=== PATIENT | male | born 1950 | race Caucasian/White ===

== ENCOUNTER → 2018-05-30 07:19 | Outpatient (CLI) | payer MEDICARE, SELFPAY ==
--- NOTE | 2018-05-30 07:28 | CI_ITS ---
Cerebrovascular Exam Indications: Follow-up carotid 433.10. IMPRESSIONS 1. The bilateral vertebral arteries are patent with normal antegrade flow. 2. Study suggests 20-49% stenosis involving the right internal carotid artery and the left internal carotid artery. Carotid duplex study. Complete study and Doppler flow study including spectral analysis, color and marquis scale imaging. Height: Height: 172.7cm. Height: 68in. Weight: Weight: 84.4kg. Weight: 185.6lb. Body mass index: BMI: 28.3kg/m^2. Body surface area: BSA: 2.03m^2. Location: Vascular laboratory. Patient status: Outpatient. Tables: Arterial flow: + +--------+--------+ Location V sys V ed + +--------+--------+ Right CCA - proximal 67.3cm/s 15.1cm/s + +--------+--------+ Right CCA - distal 71.7cm/s 16.3cm/s + +--------+--------+ Right ECA 101cm/s -------- + +--------+--------+ Right ICA - proximal 119cm/s 36.4cm/s + +--------+--------+ Right ICA - mid 92.4cm/s 26.9cm/s + +--------+--------+ Right ICA - distal 96.2cm/s 35.8cm/s + +--------+--------+ Right vertebral 50.9cm/s -------- + +--------+--------+ Left CCA - proximal 84.9cm/s 21.5cm/s + +--------+--------+ Left CCA - distal 56.8cm/s 16.5cm/s + +--------+--------+ Left ECA 87.1cm/s -------- + +--------+--------+ Left ICA - proximal 92.9cm/s 37.7cm/s + +--------+--------+ Left ICA - mid 102cm/s 34.2cm/s + +--------+--------+ Left ICA - distal 133cm/s 42.6cm/s + +--------+--------+ Left vertebral 44.3cm/s -------- + +--------+--------+ Velocity ratios: + + + + + + Right, V sys Right, V ed Left, V sys Left, V ed + + + + + + Max ICA/dist CCA 1.66 2.23 2.34 2.58 + + + + + + (Report amended ) Electronically signed by: Hesham Timmons [id number]
== END ==
PROVIDERS: PCP Family Medicine; Visit Provider Family Medicine
DX: I65.23 Occlusion and stenosis of bilateral carotid arteries (principal)
CPT/HCPCS: 93880

== ENCOUNTER → 2021-02-11 08:31 | Outpatient (CLI) | payer MEDICARE, SELFPAY ==
--- NOTE | 2021-02-11 | CA_ITS ---
APPROVED REPORT Stitch Burnisher: Sharla Huerta CRT Laterality: Bilateral Indications: Plaque on xray Risk Factors Hypertension: Doppler Spectral Velocity Analysis ECA (R) 104.50/ cm/s ECA (L) 94.40/ cm/s dICA (R) 127.20/41.90 cm/s dICA (L) 141.40/31.70 cm/s Rad (R) 111.40/38.60 cm/s Rad (L) 120.50/33.70 cm/s pICA (R) 96.80/31.70 cm/s pICA (L) 125.00/49.40 cm/s dCCA (R) 61.60/12.20 cm/s dCCA (L) 55.50/13.50 cm/s pCCA (R) 64.20/13.50 cm/s pCCA (L) 81.60/16.50 cm/s Vert (R) 48.80/ cm/s Vert (L) 37.00/ cm/s ICA/CCA 2.10 ICA/CCA 2.60 Findings Duplex evaluation demonstrates stenosis of the right proximal internal carotid artery in the range of 20-49%. Duplex evaluation demonstrates stenosis of the left proximal internal carotid artery in the range of 50-69%. Duplex evaluation demonstrates antegrade flow of the bilateral Vertebral Arteries. Conclusion Duplex evaluation demonstrates stenosis of the right proximal internal carotid artery in the range of 20-49%. Duplex evaluation demonstrates stenosis of the left proximal internal carotid artery in the range of 50-69%. Duplex evaluation demonstrates antegrade flow of the bilateral Vertebral Arteries. Electronically signed by : Hesham Timmons MD 02/11/2021 18:17:21
== END ==
PROVIDERS: PCP Family Medicine; Visit Provider Family Medicine
DX: R93.89 Abnormal findings on diagnostic imaging of other specified body structures (principal); I65.23 Occlusion and stenosis of bilateral carotid arteries
CPT/HCPCS: 93880

== ENCOUNTER → 2021-06-23 10:57 | Outpatient (CLI) | payer MEDICARE, SELFPAY ==
--- NOTE | 2021-06-23 11:01 | XR_ITS ---
FINAL REPORT CLINICAL HISTORY: SCIATICA OF THE LT SIDE FINDINGS: LUMBAR SPINE SERIES Five views demonstrate no fracture or subluxation. Moderate degenerative change with osteophytes are present. There is vacuum phenomenon at L5-S1. IMPRESSION: Degenerative changes without acute bony abnormality. Reviewed, Interpreted and Dictated by Rickey Villa III, MD Transcribed by Cara Horvath Authenticated by Rickey Villa III, MD on 06/23/2021 01:42:16 PM [facility]
== END ==
PROVIDERS: PCP Family Medicine; Visit Provider Family Medicine
DX: M54.32 Sciatica, left side (principal)
CPT/HCPCS: 72110

== ENCOUNTER → 2021-08-05 08:07 | Outpatient (CLI) | payer MEDICARE, SELFPAY ==
--- NOTE | 2021-08-05 08:13 | MR_ITS ---
FINAL REPORT CLINICAL HISTORY: DDD FINDINGS: Multiplanar MR imaging of the lumbar spine was performed without and with contrast. On the sagittal T2-weighted images, disc degeneration is seen at multiple levels. There are mild endplate changes at several levels. The vertebral alignment is normal. There is no evidence of fracture. The conus is seen at approximately the L1 level and has an unremarkable appearance. L1-2: There is an annular bulge present. There is facet arthropathy. There is mild right neuroforaminal narrowing. There is no significant canal stenosis. L2-3: There is an annular bulge present. There is facet arthropathy. There is a left foraminal disc protrusion. There is moderate left neuroforaminal narrowing. There is no significant canal stenosis. L3-4: There is an annular bulge present. There is facet arthropathy. There are vertebral osteophytes. There is mild right and moderate left neuroforaminal narrowing. There is moderate central canal stenosis with an AP diameter of thecal sac of 5 mm. L4-5: There is an annular bulge present. There is facet arthropathy. There are vertebral osteophytes. There is moderate bilateral neuroforaminal narrowing. There is moderate central canal stenosis with an AP diameter of the thecal sac of 6 mm. L5-S1: There are postoperative changes on the left. There is an annular bulge present. There is facet arthropathy. There are vertebral osteophytes. There is a central/left paracentral superiorly extruded disc. There is left lateral recess stenosis and left S1 nerve root compromise. There is severe central canal stenosis with an AP diameter of the thecal sac of 4 mm No abnormal contrast enhancement is identified. There is spurring at the sacroiliac joints bilaterally. IMPRESSION: Multilevel mild degenerative disc disease with areas of central canal stenosis and neuroforaminal narrowing Central/left paracentral superiorly extruded disc at L5-S1 causing left lateral recess stenosis and left S1 nerve root compromise. Reviewed, Interpreted and Dictated by Rickey Villa III, MD Transcribed by Lian Tomas Authenticated by Rickey Villa III, MD on 08/05/2021 12:24:04 PM [facility]
[2021-08-05 08:55] LABS: Blood Urea Nitrogen 34 mg/dl (9-20); Estimated Glomerular Filt Rate 95 ml/min (>60); GFR (African American) 115 ML/MIN (>60)
== END ==
PROVIDERS: PCP Family Medicine; Visit Provider Family Medicine
DX: M51.36 Other intervertebral disc degeneration, lumbar region (principal)
CPT/HCPCS: 36415; 72158; 82565; 84520; A9576

== ENCOUNTER → 2021-12-19 09:17 | Outpatient (CLI) | payer MEDICARE, SELFPAY ==
[2021-12-18 19:01] LABS: Alanine Aminotransferase 21 U/L (12-78); Albumin/Globulin Ratio 1.4 (1.1-1.8); Alkaline Phosphatase 91 U/L (38-126); Anion Gap 8.5 mEq/L (5-15); Aspartate Amino Transferase 25 U/L (17-59); Bilirubin,Total 0.1 mg/dl (0.2-1.3); Blood Urea Nitrogen 18 mg/dl (9-20); Calcium 9.4 mg/dl (8.4-10.2); Carbon Dioxide 31 mmol/L (22.0-30.0); Chloride 103 mmol/L (98-107); Estimated Glomerular Filt Rate 95 ml/min (>60); GFR (African American) 115 ML/MIN (>60); Globulin 2.9 g/dL (1.3-3.2); Glucose 127 mg/dl (74-100); Potassium 4.5 mmoL/L (3.5-5.1); Sodium 138 mmol/L (136-145); Total Protein,Serum 6.9 g/dl (6.3-8.2)
== END ==
PROVIDERS: PCP Family Medicine; Visit Provider Family Medicine
DX: I10 Essential (primary) hypertension (principal)
CPT/HCPCS: 80053

== ENCOUNTER → 2022-06-25 11:15 | Outpatient (CLI) | payer MEDICARE, SELFPAY ==
[2022-06-25 19:07] LABS: Alanine Aminotransferase 24 U/L (12-78); Albumin Level 4.2 g/dl (3.5-5.0); Albumin/Globulin Ratio 1.6 (1.1-1.8); Alkaline Phosphatase 70 U/L (38-126); Anion Gap 6.6 mEq/L (5-15); Aspartate Amino Transferase 27 U/L (17-59); Bilirubin,Total 0.4 mg/dl (0.2-1.3); Blood Urea Nitrogen 19 mg/dl (9-20); Calcium 8.9 mg/dl (8.4-10.2); Carbon Dioxide 34 mmol/L (22.0-30.0); Chloride 102 mmol/L (98-107); Estimated Glomerular Filt Rate 111 ml/min (>60); GFR (African American) 134 ML/MIN (>60); Globulin 2.7 g/dL (1.3-3.2); Glucose 165 mg/dl (74-100); Potassium 4.6 mmoL/L (3.5-5.1); Sodium 138 mmol/L (136-145); Total Protein,Serum 6.9 g/dl (6.3-8.2)
== END ==
PROVIDERS: PCP Family Medicine; Visit Provider Family Medicine
DX: C61 Malignant neoplasm of prostate (principal); I10 Essential (primary) hypertension
CPT/HCPCS: 80053

== ENCOUNTER 2022-07-05 11:38 | Emergency (ER) | payer MEDICARE, SELFPAY ==
[2022-07-05] VITALS (12 sets, daily range): BP systolic 140–188; BP diastolic 75–100; PULSE 82–94; RESP 16–18; TEMP 36.4; O2SAT 95–98; BMI 28.1
[2022-07-05 12:14] LABS: Basophils % 0.5 % (0.1-2.0); Eosinophils % 0.6 % (0.1-12.0); Hematocrit 43.9 % (42.0-52.0); Hemoglobin 14.3 g/dL (14.1-18.0); Lymphocytes # 0.5 K/mm3 (0.7-4.5); Lymphocytes % 6.3 % (10-50); Mean Corpuscular HGB Conc 32.6 g/dL (31.8-35.4); Mean Corpuscular Hemoglobin 29.4 pg (27.0-31.2); Mean Platelet Volume 7.5 fl (7.4-10.4); Monocytes # 0.6 K/mm3 (0.1-1.0); Monocytes % 8.2 % (1.7-9.3); Neutrophils % 84.4 % (37.0-80.0); Platelet Count 338 K/mm3 (142-424); Red Blood Count 4.88 M/mm3 (4.60-6.20); Red Cell Distribution Width 12.9 % (11.5-17.5); White Blood Count 7.1 K/mm3 (4.8-10.8)
--- NOTE | 2022-07-05 12:17 | CT_ITS ---
FINAL REPORT TECHNIQUE: Thin section axial images were obtained through the abdomen after intravenous contrast. Reconstruction images were obtained from the axial data. Exam was performed using dose reduction techniques. CLINICAL HISTORY: lower abdominal pain, h/o diverticulosis FINDINGS: The lung bases are clear. The liver is homogeneous. The gallbladder is present. The spleen, adrenal glands, and pancreas are unremarkable. There is no hydronephrosis or solid renal mass. There are fluid-filled mildly dilated small bowel loops. The distal and terminal ileum are thickened. There is abnormal soft tissue in the region of the ileocecal valve and cecum. There is no evidence of lymphadenopathy. Ascites is noted. The prostate is either very small or has been resected. The appendix is normal. There is diverticulosis without evidence of diverticulitis. There is a mildly enlarged right extra iliac lymph node measuring 13 mm. There is a small amount of ascites. No acute osseous abnormality is identified. IMPRESSION: Wall thickening of the terminal ileum with abnormal soft tissue at the ileocecal valve and cecum which may be related to enterocolitis however neoplasm is not excluded. Consider colonoscopy. Small bowel dilatation to the level of the terminal ileum, a component of small bowel obstruction is likely. Ascites. Reviewed, Interpreted and Dictated by Cee Reyes MD Transcribed by Cara Horvath Authenticated and [facility]
[2022-07-05 12:18] LABS: Chloride 105 mmol/L (98-107); Potassium 4.3 mmoL/L (3.5-5.1); Sodium 139 mmol/L (136-145)
[2022-07-05 12:21] LABS: Alanine Aminotransferase 21 U/L (12-78); Albumin Level 4.2 g/dl (3.5-5.0); Albumin/Globulin Ratio 1.5 (1.1-1.8); Alkaline Phosphatase 75 U/L (38-126); Anion Gap 8.3 mEq/L (5-15); Aspartate Amino Transferase 23 U/L (17-59); Bilirubin,Total 0.6 mg/dl (0.2-1.3); Blood Urea Nitrogen 17 mg/dl (9-20); Calcium 8.7 mg/dl (8.4-10.2); Carbon Dioxide 30 mmol/L (22.0-30.0); Creatinine Clearance Estimated 79 mL/min (50-200); Estimated Glomerular Filt Rate 95 ml/min (>60); GFR (African American) 115 ML/MIN (>60); Globulin 2.8 g/dL (1.3-3.2); Glucose 217 mg/dl (74-100); Lipase 42 U/L (23-300)
[2022-07-05 12:27] LABS: Lactic Acid 1.3 mmol/L (0.7-2.1)
--- NOTE | 2022-07-05 12:45 | HMH.EDGENADL ---
Discharge Plan Disposition Patient Disposition: Xfer Short-Term Hosp Condition: Good Prescriptions Prescriptions: No Action aspirin 81 mg tablet,delayed release (DR/EC) 81 mg PO DAILY metoprolol succinate 25 mg tablet extended release 24 hr 25 mg PO DAILY metformin 500 mg tablet extended release 24 hr 500 mg PO DAILY rosuvastatin 5 mg tablet 5 mg PO DAILY coenzyme Q10 30 mg tablet,chewable 30 mg PO DAILY losartan-hydrochlorothiazide 100-12.5 mg tablet 1 tab PO DAILY Referrals Follow up/Referrals: Rashad Collins MD [Primary Care Provider] - See instructions Clinical Impressions Clinical Impression: SBO (small bowel obstruction), Colonic mass Instructions Patient Instructions: DI for Acute Abdominal Pain Discharge ED Provider: Jasmyne Mcclain General Adult HPI General Chief complaint: Abdominal Pain Stated complaint: Abd pain Time Seen by Provider: 07/05/22 11:52 Mode of Arrival: Ambulatory Source of Information: Patient Limitations: No Limitations Description of Symptoms (Recalled from ER Triage Doc. by RN): Pt c/o lower abd pain x1 week. Pt denies n/v/d, fever or urinary symptoms. Pt reports has been told has diverticulosis when he has had a scope. History of Present Illness HPI narrative: This patient is a 72-year-old male with a history of prostate cancer and diverticulosis presenting to the emergency department for evaluation of lower abdominal pain. He states that it initially started 1 week ago, but it seemed to improve. It got acutely worse last night. He describes it as lower abdominal pain, intermittent, and sharp whenever it comes on. Nothing seems to bring it on, but deep breathing seems to improve it. He denies any fevers, chills, nausea, vomiting, changes in bowel movement such as diarrhea, constipation, melena, or hematochezia. No other symptoms noted at this time. Related Data Home Medications Medication Instructions Recorded Confirmed aspirin 81 mg tablet,delayed 81 mg PO DAILY HEART HEALTH 12/18/21 07/05/22 release coenzyme Q10 30 mg chewable tablet 30 mg PO DAILY Supplement 07/05/22 07/05/22 losartan 100 1 tab PO DAILY Hypertension 07/05/22 07/05/22 mg-hydrochlorothiazide 12.5 mg tablet metformin 500 mg tablet,extended 500 mg PO DAILY Diabetes 07/05/22 07/05/22 release 24 hr metoprolol succinate 25 mg 25 mg PO DAILY Hypertension 07/05/22 07/05/22 tablet,extended release 24 hr rosuvastatin 5 mg tablet 5 mg PO DAILY Cholesterol 07/05/22 07/05/22 Allergies Allergy/AdvReac Type Severity Reaction Status Date / Time No Known Allergies Allergy Verified 06/25/22 10:12 [facility] Disclaimer: The information contained in this section may have been updated after the patient was seen, as this information can be updated by other users. Medical History Diabetes Diabetes mellitus Hyperlipemia Hypertension Prostate cancer Prostate cancer Surgical History History of back surgery History of knee surgery History of prostatectomy Family History Other Cancer Diabetes Social History Smoking Status: Never smoker alcohol intake: never current occupational status: retired Travel in the last 8 weeks: None ROS Obtained: Yes All systems reviewed & no additional complaints except as documented 14 point review of systems obtained and negative except as mentioned in HPI. Physical Exam General General appearance: alert and in no apparent distress Head Head exam: atraumatic and normocephalic Eye Eye exam: Present normal appearance, PERRL and EOMI ENT ENT exam: Present normal exam, normal oropharynx and mucous membranes moist Neck Neck exam: Present normal inspection and full ROM Chest Chest inspection:
[2022-07-05 13:17] LABS: Microscopic, Urine URINE MICROSCOPIC (MICROSCOPIC)
[2022-07-05 13:40] LABS: Appearance,Urine CLEAR (Clear); Bilirubin,Urine Negative (Negative); Blood, Urine Negative (Negative); Color,Urine YELLOW (Yellow); Glucose,Urine (UA) 3+ (Negative); Ketones,Urine TRACE (Negative); Leukocyte Esterase,Urine Negative (Negative); Nitrate,Urine Negative (Negative); Protein,Urine Negative (Negative); Specific Gravity, Urine 1.015 (1.005-1.030); Urobilinogen,Urine 0.2 EU/dl (0.2)
[2022-07-05 13:53] LABS: Bacteria,Urine Trace /lpf; Squamous Epithelial Cell,Urine Occasional #/hpf (0-5)
--- NOTE | 2022-07-05 14:04 | PC.NURSE ---
checked on pt at this time, pt sitting up in bed, states no needs at this time
--- NOTE | 2022-07-05 14:14 | PC.NURSE ---
Dr. Owusu pagemariama
--- NOTE | 2022-07-05 14:16 | PC.NURSE ---
OR staff called for dr. white r/t he is in surgery, gave pt information to her r/t reason for surgical consult. Waiting crew person back
--- NOTE | 2022-07-05 15:00 | PC.NURSE ---
CHECKED ON PT HE IS GOOD CALL LIGHT AT BS
--- NOTE | 2022-07-05 15:00 | PC.NURSE ---
[facility] NEL[facility] speaking with dr. white
--- NOTE | 2022-07-05 15:03 | PC.NURSE ---
requested that radiology power share pt images with [facility]
--- NOTE | 2022-07-05 15:03 | PC.NURSE ---
ER at discussing pt test results and POC
--- NOTE | 2022-07-05 15:06 | PC.NURSE ---
CALLED [facility] FOR GENERAL SURGERY CONSULT, AWAITING CALL BACK
--- NOTE | 2022-07-05 15:10 | PC.NURSE ---
CALL [facility] FOR PT CONSULT, STATED THEY HAD NO BEDS AVAILABLE AT THIS TIME PUTTING PT ON WAIT LIST AND THEN THEY WOULD PAGE OUT FOR A DR TO CONSULT ONCE THEY HAD BED ASSIGNMENT
--- NOTE | 2022-07-05 15:13 | PC.NURSE ---
Addendum entered by Valarie Prado, ROSANA 07/05/22 15:24: pt on waiting list for inpatient bed assignment Original Note: [facility] speaking with surgery at
--- NOTE | 2022-07-05 15:24 | PC.NURSE ---
CALLING TO SPEAK TO [facility] ABOUT POSSIBLE ADMISSION UNTIL BED OPENS UP AT OR [facility]
--- NOTE | 2022-07-05 15:25 | PC.NURSE ---
[facility] SPEAKING WITH DR FERRIS AT THIS TIME
--- NOTE | 2022-07-05 15:30 | PC.NURSE ---
[facility] spoke with Dr. Collins badger distiller operator paging dr. white
--- NOTE | 2022-07-05 15:32 | PC.NURSE ---
CHECKED ON PT HE STATES HIS FINE AT THIS TIME, AT BEDSIDE CALL LIGHT AT BEDSIDE
--- NOTE | 2022-07-05 15:34 | HMH.PHAINT1 ---
Pharmacy Intervention Comments: MEDICATION RECONCILIATION COMPLETED ON PATIENT USING EXTERNAL FILL HISTORY FROM PHARMACY AND LIST FROM [facility]. -LAUREN ERAZOD
--- NOTE | 2022-07-05 15:50 | PC.NURSE ---
CALL [facility] TO POSSIBLY TRANSFER PT AWAITING CALL BACK TO SEE IF GENERAL SURGERY WILL ACCEPT PT
--- NOTE | 2022-07-05 15:59 | PC.NURSE ---
CALLED [facility] FOR POSSIBLE TRANSFER AWAITNG CALL BACK TO SEE IF GENERAL SURGERY WILL ACCEPTS PT
--- NOTE | 2022-07-05 16:14 | PC.NURSE ---
checked on pt at this time, pt sitting up in bed, family in room with pt. Pt states no needs at this time.
--- NOTE | 2022-07-05 16:19 | PC.NURSE ---
[facility] speaking with Dr. Saldaña with surgery at [place]
--- NOTE | 2022-07-05 16:25 | PC.NURSE ---
Dr. Saldaña at [facility] stated to ER to speak with the hospitalist. Transfer center is supposed to be calling back when the hospitalist is available.
[2022-07-05 16:30] LABS: Coronavirus 19, PCR Not Detected (NotDetected); Influenza A, PCR Not Detected (NotDetected); Influenza B, PCR Not Detected (NotDetected)
--- NOTE | 2022-07-05 17:12 | PC.NURSE ---
bed placement staff at [facility] called back states they are unable to list pt on a waiting list r/t he is a possible surgical candidate. Notified [facility]
--- NOTE | 2022-07-05 17:20 | PC.NURSE ---
facesheet faxed to [facility]; [phone]
--- NOTE | 2022-07-05 17:22 | PC.NURSE ---
[facility] called with a bed assignment at [facility] on 3[facility], accepted by dr. medina updated pt on POC.
--- NOTE | 2022-07-05 17:33 | PC.NURSE ---
report called to carmen francis at [facility] at this time.
--- NOTE | 2022-07-05 17:58 | PC.NURSE ---
Pt resting on ED stretcher, call light within reach. Pt is requesting his pain medication at 1800. ROSANA Sheppard has been informed
--- NOTE | 2022-07-05 18:01 | PC.NURSE ---
EMS reports on their way to transport pt
--- NOTE | 2022-07-05 18:16 | PC.NURSE ---
report given to [facility] at this time.
== END 2022-07-05 18:30 | disposition short-term general hospital (02) ==
PROVIDERS: Emergency Provider Emergency Medicine; PCP Family Medicine
DX: K56.609 Unspecified intestinal obstruction, unspecified as to partial versus complete obstruction (principal); K63.89 Other specified diseases of intestine; K57.90 Diverticulosis of intestine, part unspecified, without perforation or abscess without bleeding; Z85.038 Personal history of other malignant neoplasm of large intestine; E11.9 Type 2 diabetes mellitus without complications; E78.5 Hyperlipidemia, unspecified; I10 Essential (primary) hypertension; Z85.46 Personal history of malignant neoplasm of prostate; Z83.3 Family history of diabetes mellitus; Z80.9 Family history of malignant neoplasm, unspecified; Z20.822 Contact with and (suspected) exposure to COVID-19
CPT/HCPCS: 74177; 80053; 81001; 83605; 83690; 85025; 96361; 96374; 96375; 96376; 99285; C9803; J2405; Q9967; U0003; U0005

== ENCOUNTER → 2023-01-11 10:41 | Outpatient (CLI) | payer MEDICARE, SELFPAY ==
[2023-01-11 18:36] LABS: Chloride 105 mmol/L (98-107); Potassium 4.5 mmoL/L (3.5-5.1); Sodium 142 mmol/L (136-145)
[2023-01-11 18:38] LABS: Alanine Aminotransferase 20 U/L (12-78); Blood Urea Nitrogen 18 mg/dl (9-20); Estimated Glomerular Filt Rate 132 ml/min (>60); GFR (African American) 160 ML/MIN (>60)
[2023-01-11 18:39] LABS: Albumin/Globulin Ratio 1.5 (1.1-1.8); Alkaline Phosphatase 94 U/L (38-126); Anion Gap 12.5 mEq/L (5-15); Aspartate Amino Transferase 27 U/L (17-59); Bilirubin,Total 0.3 mg/dl (0.2-1.3); Calcium 9.1 mg/dl (8.4-10.2); Carbon Dioxide 29 mmol/L (22.0-30.0); Globulin 2.6 g/dL (1.3-3.2); Glucose 143 mg/dl (74-100); Total Protein,Serum 6.6 g/dl (6.3-8.2)
[2023-01-11 18:41] LABS: Basophils % 0.6 % (0.1-2.0); Eosinophils # 0.1 K/mm3 (0.0-0.4); Eosinophils % 2.4 % (0.1-12.0); Hematocrit 44.6 % (42.0-52.0); Hemoglobin 14.1 g/dL (14.1-18.0); Lymphocytes % 25.3 % (10-50); Mean Corpuscular HGB Conc 31.7 g/dL (31.8-35.4); Mean Corpuscular Volume 100.7 fl (80-94); Mean Platelet Volume 9.4 fl (7.4-10.4); Monocytes # 0.4 K/mm3 (0.1-1.0); Monocytes % 10.4 % (1.7-9.3); Neutrophils # 2.5 K/mm3 (1.8-7.8); Neutrophils % 61.3 % (37.0-80.0); Platelet Count 269 K/mm3 (142-424); Red Blood Count 4.42 M/mm3 (4.60-6.20); Red Cell Distribution Width 14.8 % (11.5-17.5)
== END ==
PROVIDERS: PCP Family Medicine; Visit Provider Family Medicine
DX: E11.9 Type 2 diabetes mellitus without complications (principal); L98.9 Disorder of the skin and subcutaneous tissue, unspecified; Z79.84 Long term (current) use of oral hypoglycemic drugs
CPT/HCPCS: 80053; 85025

== ENCOUNTER 2023-10-25 17:08 | Outpatient (CLI) | payer MEDICARE, SELFPAY ==
[2023-10-25 20:29] LABS: Anion Gap 12.2 mEq/L (5-15); Blood Urea Nitrogen 16 mg/dl (9-20); Calcium 9.4 mg/dl (8.4-10.2); Carbon Dioxide 31 mmol/L (22.0-30.0); Chloride 101 mmol/L (98-107); Estimated Glomerular Filt Rate 111 ml/min (>60); GFR (African American) 134 ML/MIN (>60); Glucose 126 mg/dl (74-100); Potassium 4.2 mmoL/L (3.5-5.1); Sodium 140 mmol/L (136-145)
[2023-10-25 20:59] LABS: Prostate Specific Ag Screen 4.6 ng/ml (0.0-4.0)
== END 2023-10-25 23:59 | disposition home or self-care (01) ==
LOC: LAB.DROPOF 10-26 17:09
PROVIDERS: PCP Family Medicine; Visit Provider Family Medicine
DX: Z12.5 Encounter for screening for malignant neoplasm of prostate (principal); I10 Essential (primary) hypertension
CPT/HCPCS: 80048; G0103

== ENCOUNTER 2024-07-24 10:14 | Outpatient (CLI) | payer MEDICARE, SELFPAY ==
[2024-07-24 20:19] LABS: Basophils % 0.7 % (0.1-2.0); Eosinophils # 0.1 K/mm3 (0.0-0.4); Eosinophils % 1.2 % (0.1-12.0); Hematocrit 47.1 % (42.0-52.0); Hemoglobin 15.5 g/dL (14.1-18.0); Lymphocytes # 1.3 K/mm3 (0.7-4.5); Lymphocytes % 23.3 % (10-50); Mean Corpuscular HGB Conc 32.9 g/dL (31.8-35.4); Mean Corpuscular Volume 94.2 fl (80-94); Mean Platelet Volume 9.7 fl (7.4-10.4); Monocytes # 0.7 K/mm3 (0.1-1.0); Monocytes % 11.7 % (1.7-9.3); Neutrophils # 3.6 K/mm3 (1.8-7.8); Neutrophils % 62.9 % (37.0-80.0); Platelet Count 289 K/mm3 (142-424); Red Cell Distribution Width 12.1 % (11.5-17.5); White Blood Count 5.7 K/mm3 (4.8-10.8)
[2024-07-24 21:12] LABS: Albumin Level 4.5 g/dl (3.5-5.0); Chloride 99 mmol/L (98-107); Potassium 4.5 mmoL/L (3.5-5.1); Sodium 137 mmol/L (136-145)
[2024-07-24 21:14] LABS: Blood Urea Nitrogen 26 mg/dl (9-20); Estimated Glomerular Filt Rate 94 ml/min (>60); GFR (African American) 114 ML/MIN (>60)
[2024-07-24 21:15] LABS: Alanine Aminotransferase 24 U/L (12-78); Albumin/Globulin Ratio 1.8 (1.1-1.8); Alkaline Phosphatase 72 U/L (38-126); Anion Gap 11.5 mEq/L (5-15); Aspartate Amino Transferase 25 U/L (17-59); Bilirubin,Total 0.2 mg/dl (0.2-1.3); Calcium 9.6 mg/dl (8.4-10.2); Carbon Dioxide 31 mmol/L (22.0-30.0); Globulin 2.5 g/dL (1.3-3.2); Glucose 139 mg/dl (74-100)
== END 2024-07-24 23:59 | disposition home or self-care (01) ==
LOC: LAB.DROPOF 07-25 10:14
PROVIDERS: PCP Family Medicine; Visit Provider Family Medicine
DX: E11.9 Type 2 diabetes mellitus without complications (principal); I10 Essential (primary) hypertension; L30.9 Dermatitis, unspecified
CPT/HCPCS: 80053; 85025

== ENCOUNTER 2024-11-20 11:43 | Outpatient (CLI) | payer MEDICARE, SELFPAY ==
--- OUTSIDE RECORDS SUMMARY | 2024-10-18 08:21 | XMS_ITS | Encounter Summary ---
Author Organization [place] [address] Care Team Providers Care Prize Fighter Name Role Phone Jim Collins MD Primary Care Provider [phone] Diana Metcalf MD Unavailable [phone] Praneeth Fay MD Unavailable [phone] Encounter Details Date Type Department Care Team (Latest Contact Info) Description 10/18/2024 8:21 AM EDT - 10/18/2024 11:59 PM EDT Hospital Encounter [facility] [address] [place], [place] [id number] Discharge Disposition: Home or Self Care Social History Tobacco Use Types Packs/Day Years Used Date Smoking Tobacco: Never Smokeless Tobacco: Never Alcohol Use Standard Drinks/Week Comments Yes 15 (1 standard drink = 0.6 oz pu re alcohol) PHQ-2 Answer Date Recorded PHQ-2 Total Score 0 10/07/2023 Sexually Active Control Partners Comments Yes Female Sex and Gender Information Value Date Recorded Sex Assigned at Not on file Legal Sex Male 12:28 AM EDT Gender Identity Not on file Sexual Orientation Not on file documented as of this encounter Medications at Time of Discharge aspirin 81 mg Oral Tablet, Delayed Release (E.C.) Take 81 mg by mouth daily. clotrimazole-bet amethasone (LOTRISONE) Top Cream Apply topically 2 times daily. empagliflozin (JARDIANCE) 10 mg Oral Tablet Take 10 mg by mouth daily. losartan-hydroch lorothiazide (HYZAAR) 100-12.5 mg Oral Tablet Take 1 Tab by mouth daily. metFORMIN (GLUCOPHAGE) 500 mg Oral Tablet Take 500 mg by mouth daily. metoprolol (LOPRESSOR) 25 mg Oral Tablet Take 25 mg by mouth daily. rosuvastatin (CRESTOR) 5 mg Oral Tablet Take 5 mg by mouth every other day. documented as of this encounter Discharge Disposition Disposition Code Departure Means Destination Home or Self Care documented in this encounter Plan of Treatment Upcoming Encounters Date Type Department Care Team (Late st Contact Info) Description 01/28/2025 9:[address] [facility] [place] [address] Praneeth Fay MD [address] [facility] [place] [address] 01/29/2025 10:00 AM EDT Appointment [facility] [place] [address] 01/29/2025 10:40 AM EDT Appointment [facility] [place] [address] Praneeth Fay MD [address] [facility] [place] [address] documented as of this encounter Visit Diagnoses Not on filedocumented in this encounter Additional Health Concerns Assessment Noted Time A fall risk assessment has been complete d for the patient 03/18/2022 10:38 AM EDT documented as of this encounter Care Teams Prize Fighter Relationship Specialty Start Date End Date Jim Collins MD [address] [facility] [address] [place] [address] PCP - General Psychiatry & Neurology-Neurology 12/21/11 Diana Metcalf MD [address] [facility] [address] [place] [address] Consulting Physician Radiology-Radiation Oncology 04/02/15 Praneeth Fay MD [address] [facility] [address] [place], [place] [id number] Medical Oncologist Internal Medicine-Hematology and Oncology 09/14/22 documented as of this encounter
--- OUTSIDE RECORDS SUMMARY | 2024-10-23 10:00 | XMS_ITS | Encounter Summary ---
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 In the past month, have y ou wished you were or wished you could go to sleep and not wake up? 0 10/23/2024 10:00 AM EDT Teresita Leblanc, OPTICS TEST TECHNICIAN 2. In the past month, have y ou actually had any thoughts of killing yourself? (If no, skip to question 6) 0 10/23/2024 10:00 AM ED T Regina Leblanc VERNON 6. Have you ever done anythi ng, started to do anything, or prepared to do anything to end your life? 0 10/23/2024 10:00 AM EDT Regina Gomez VERNON documented as of this encounter Medications at [...] Info) Description 01/28/2025 9:00 AM EDT Appointment [facility] Center [address] [place], [place] [id number] Praneeth Fay MD [address] [place] [address] [address] [place], [place] [id number] 01/29/2025 10:00 AM EDT Appointment [place] [address] 01/29/2025 10:40 AM EDT Appointment [facility] [place], [place] [id number] Praneeth Fay MD [address] [place] [address] [address] [place], [place] [id number] documented as of this encounter Procedures Procedure Name Priority Date/Time Associated Diagnosis Comments MISCELLANEOUS LAB Routine 10/23/2024 10: 18 AM EDT Prostate cancer (HCC) 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) History of colon cancer documented in this encounter Results * MISCELLANEOUS LAB (10/23/2024 10:18 AM EDT) [facility] COMMENT Diann 10/24/2024 7:04 AM EDT [facility] Blood VASCULAR PORT AND CATHETER / Unknown Port / Unknown 10/23/2024 10:18 AM EDT 10/24/2024 7:03 AM EDT us Praneeth Fay MD HEMATOLOGY ORDERABLES Final Result [facility] [address] [place] [address] documented in this encounter Visit Diagnoses Diagnosis Prostate cancer (HCC)- Primary Malignant neoplasm of prostate 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 Prostate cancer (HCC)Indications:Prostate cancer (HCC) Given 10/23/2024 10:19 AM EDT 500 Units sodium chloride 0.9 % sterile syringe Intravenous, PRN, Starting on 10/23/24 at 1004, Until Tue10/24/24 at 0405, Line Care, For initial access of Venous Access Device., Dx: 1. Prostate cancer (HCC)Indications:Prostate cancer (HCC) Given 10/23/2024 10:19 AM EDT sodium chloride 0.9% syringe Intravenous, PRN, Starting on 10/23/24 at 1004, Until Tue10/24/24 at 0405, Line Care, For Venous Access Device care and maintenance., Dx: 1. Prostate cancer (HCC)Indications:Prostate cancer (HCC) Given 10/23/2024 10:19 AM EDT documented in this encounter Additional Health Concerns Assessment Noted Time A fall risk assessment has been complete d for the patient 03/18/2022 10:38 AM EDT documented as of this encounter Care Teams Insurance Counselor Relationship Specialty [place] [address] [place] [address] [address] [place] [address] PCP - General Psychiatry & Neurology-Neurology 12/21/11 Diana Metcalf MD 20 [facility] [address] [place] [address] Consulting Physician Radiology-Radiation Oncology 04/02/15 Praneeth Fay MD 1 [place] [address] Medical Oncologist Internal Medicine-Hematology and Oncology 09/14/22 documented as of this encounter
--- OUTSIDE RECORDS SUMMARY | 2024-10-23 10:16 | XMS_ITS | Encounter Summary ---
Author Organization [place] [address] Care Team Providers Care Cashier Manager Name Role Phone Jim Collins MD Primary Care Provider [phone] Diana Metcalf MD Unavailable [phone] Praneeth Fay MD Unavailable [phone] Reason for Referral * MRI/CAT Scan (Routine) - Pending Review Specialty Diagnoses / Procedures Referred By Contac t Referred To Contact Radiology Diagnoses Prostate cancer (HCC) Procedures CT CHEST ABDOMEN PELVIS W CONTRAST Praneeth Fay MD [address] [facility] [place] [address] Phone: tel: fax: Referral ID Status Reason Start Date Expiration Date V isits Requested Visits Authorized [id number] Pending Review 10/23/2024 10/23/2025 1 1 Reason for Visit * Reason Comments Follow-up Prostate cancer Encounter Details Date Type Department Care Team (Latest Contact Info) Description 10/23/2024 10:16 AM EDT - 10/23/2024 11:59 PM EDT Hospital Encounter [facility] Medical Oncology [place] [phone] Praneeth Fay MD [address] [facility] [place] [address] Prostate cancer (HCC) (Primary Dx); 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); History of colon cancer; History of chemotherapy Discharge Disposition: Home or Self Care Social History Tobacco Use Types Packs/Day Years Used Date Smoking Tobacco: Never Smokeless Tobacco: Never Tobacco Cessation:Counseling Given: Not Answered Alcohol Use Standard Drinks/Week Comments Yes 15 [...] on file documented as of this encounter Last Filed Vital Signs Vital Sign Reading Time Taken Comments Blood Pressure 184/89 10/23/2024 10:02 AM EDT Pulse 65 10/23/2024 10:02 AM EDT Temperature 36.4 C (97.5 F) 10/23/2024 10:02 AM EDT Respiratory Rate 17 10/23/2024 10:02 AM EDT Oxygen Saturation 98% 10/23/2024 10:02 AM EDT Inhaled Oxygen Concentration - - Weight 81.8 kg (180 lb 4.8 oz) 10/23/2024 10:02 AM EDT Height 172.7 cm (5' 8 ) 10/23/2024 10:02 AM EDT Body Mass Index 27.41 10/23/2024 10:02 AM EDT documented in this encounter Functional Status * Suicide Severity Rating Answer Date of Assessment Author No Risk 10/23/2024 10:00 AM EDT Pascual Leblanc CMA * [place] Suicide Severity Rating Scale (Q shift for moderate and high) Question Answer Date of Assessment Author 1. In the past month, have y ou wished you were or wished you could go to sleep and not wake up? 0 10/23/2024 10:00 AM EDT Teresita Leblanc CMA 2. In the past month, have y ou actually had any thoughts of killing yourself? (If no, skip to question 6) 0 10/23/2024 10:00 AM ED T Regina Leblanc CMA 6. Have you ever done anythi ng, started to do anything, or prepared to do anything to end your life? 0 10/23/2024 10:00 AM EDT Regina Gomez OPEN HEARTH FURNACE OPERATOR documented as of this encounter Medications at [...] 5 mg by mouth every other day. lidocaine-priloc luis (EMLA) Top CreamIndications :Prostate cancer (HCC) Apply one nickel sized glob over port approx 30 minutes before appt. DO NOT RUB IN. Cover with plastic wrap 30 g 2 10/23/2024 documented as of this encounter Ordered Prescriptions Prescription Sig Dispense Quantity Refills Last Filled Start Date End Date lidocaine HCL (GLYDO) 2 % MM Jelly in ApplicatorIndicati ons:Prostate cancer (HCC) Apply 2.5 mL topically once for 1 dose. 1 Applicator 3 10/23/2024 documented in this encounter Discharge Disposition Disposition Code Departure Means Destination Home or Self Care documented in this encounter Progress Notes * Praneeth Fay MD - 10/23/2024 10:20 AM EDT Images from the original note were not included. Patient: Emiliano Mcclain CSN: [id number] Date of : 1950 Age: 74 y.o. Date of Service: 10/23/2024 HEMATOLOGY/ONCOLOGY FOLLOW UP VISIT Primary Lifestyle Director & Oncologist: Praneeth Fay MD DIAGNOSIS & TREATMENT HISTORY: Oncology History Overview Note Colonic adenocarcinoma, stage III ([id number]) Dx 07/2022. P/w abd pain, admitted w/ SBO. iCEA 3.5 (07/07/22). CT imaging w/o distant dz. S/p RIGHT partial colectomy 08/04/22 @ OSH Prostatic adenocarcinoma Dx 2009. iPSA 5.3. s/p radical prostatectomy 10/2009 (pT2c, G7(3+4)). Completed salvage XRT 06/2015given biochemical recurrence. Slowly rising PSA over several yrs and PSMA PET/CT 06/2022 +avid metastatic pelvic LNs. Hereditary cancer genetics: blood will be drawn 07/17/2024, pending No history exists. Cancer Staging No matching staging information was found for the patient. CURRENT TREATMENT: INTERVAL HISTORY: Chief Complaint Patient presents with Follow-up Prostate cancer Emiliano Mcclain is coming today for follow-up with prostate cancer. Feeling good. Denied any nausea/vomiting, diarrhea/constipation, abd pain, or s/s of bleeding. Neuropathy stable. REVIEW OF SYSTEMS: Review of Systems Constitutional: Positive for fatigue. Negative for chills and fever. Respiratory: Negative for cough and shortness of breath. Cardiovascular: Negative for chest pain. Gastrointestinal: Negative for abdominal pain, diarrhea, nausea and vomiting. Musculoskeletal: Positive for arthralgias and myalgias. Neurological: Positive for numbness. MEDICATIONS: Medications and allergies reviewed PHYSICAL EXAM: Vitals: 10/23/24 1002 BP: (!) 184/89 Pulse: 65 Resp: 17 Temp: 97.5 ??F (36.4 ??C) SpO2: 98% Wt Readings from Last 2 Encounters: 10/23/24 180 lb 4.8 oz (81.8 kg) 07/17/24 178 lb 12.8 oz (81.1 kg) ECO Physical Exam Constitutional: Appearance: He is not ill-appearing. Cardiovascular: Rate and Rhythm: Normal rate. Pulmonary: Effort: Pulmonary effort is normal. Abdominal: General: There is no distension. Musculoskeletal: General: No swelling. Neurological: General: No focal deficit present. Mental Status: He is alert and oriented to person, place, and time. MEDICAL DATA REVIEW: Laboratories, Images and Pathology results reviewed ASSESSMENT & PLAN Emiliano Mcclain was seen today for follow-up. Diagnoses and all orders for this visit: Prostate cancer (HCC) - CT CHEST ABDOMEN PELVIS W CONTRAST; Future - lidocaine HCL (GLYDO) 2 % MM Jelly in Applicator; Apply 2.5 mL topically once for 1 dose. 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 P/w abd pain, admitted w/ SBO. iCEA 3.5 (07/07/22). CT imaging w/o distant dz. S/p RIGHT partial colectomy 08/04/22 @ OSH ([facility]) which confirmed invasive moderately diff adenocarcinoma w/ invasion into pericolonic fat (pT3) and 7/12 LNs positive for metastatic ca (pN2b). Two tumor deposits identified. Surgical margins negative. MSI-intact. -- completed adjuvant CAPOX x 3 months (4 cycles) 10/2022. -- germline testing completed (07/27/24), negative -- completed colonoscopy (03/15/24) with no evidence of recurrence. -- CT imaging (07/16/24) w/o evidence to suggest recurrent, metastatic dz. -- no clinical changes since last visit. CEA remains WNL. Last c-tumor DNA was negative (06/2024). Labs reviewed, pending CEA and c-tumor DNA. Will continue to monitor, RTC in 3 months w/ H&P, labs, imaging (CT CAP ordered today). Prostatic adenocarcinoma Dx 2009. iPSA 5.3. s/p radical prostatectomy 10/2009 (pT2c, G7(3+4)). Completed salvage XRT 06/2015given biochemical recurrence. Slowly rising PSA over several yrs and PSMA PET/CT 06/2022 +avid metastatic pelvic LNs. -- no clinical changes, symptoms. PSA continues to slowly rise, up to 6.52 ng/mL. Wants to continueto observe/monitor for now, will reassess flor[place]ma dz on upcoming CT. -- continue follow-up with Rad/Onc (Dr. Metcalf) HTN Elevated today, no associated symptoms. On BB, losartan/HCTZ. Continue to monitor. Chemotherapy induced neuropathy G2, stable. Will continue to monitor IV access PAC placed via IR 09/07/22 Advance Directives: Advance Directives and Living Will: Not Received Power of Half Sole Fitter: Not Received ADVANCE DIRECTIVE: Not Received Code Status: Not on file Dispo: Return in about 3 months (around 01/23/2025) for MD ANN, SCAN RESULT OV, LAB APT. Thank you for the opportunity to assist in the care of this patient, please feel free to contact meif I can be of any assistance. I saw and evaluated the patient. The total time I spent on the date of the visit was 38 minutes. This includes gbny-sm-cugs time with the patient and/or patient???s family, preparing, completing documentation, and coordinating care. Praneeth Fya MD Hematology and Medical Oncology [facility] documented in this encounter Plan of Treatment Upcoming Encounters Date Type Department Care Team (Late st Contact Info) Description 01/28/2025 9:00 AM EDT Appointment [facility] [place] [address] Praneeth Fay MD [address] [place] [address] [place] [address] 01/29/2025 10:00 AM EDT Appointment [facility] [place] [address] 01/29/2025 10:40 AM EDT Appointment [facility] [place] [address] Praneeth Fay MD [address] [place] [address] [place] [address] Scheduled Orders Name Type Priority Associated Diagnoses Orde r Schedule CT CHEST ABDOMEN PELVIS W CONTRAST Imaging Routine Prostate cancer (HCC) 1 Occurrences starting 10/23/2024 until 10/23/2025 documented as of this encounter Visit Diagnoses Diagnosis Prostate cancer (HCC)- Primary Malignant neoplasm of prostate 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 Reorder 10/23/2024 documented as of this encounter Historical Medications * This list may reflect changes made after this encounter. lidocaine HCL (GLYDO) 2 % MM Jelly in Applicator Apply 2.5 mL topically once. 5 added in this encounter Additional Health Concerns Assessment Noted Time A fall risk assessment has been complete d for the patient 03/18/2022 10:38 AM EDT documented as of this encounter Care Teams Cashier Manager Relationship Specialty Start Date End Date Jim Collins MD [address] [facility] [address] [place] [id number] PCP - General Psychiatry & Neurology-Neurology 12/21/11 Diana Metcalf MD [address] [facility] [address] [place] [address] Consulting Physician Radiology-Radiation Oncology 04/02/15 Praneeth Fay MD [address] [facility] [place] [address] Medical Oncologist Internal Medicine-Hematology and Oncology 09/14/22 documented as of this encounter
[2024-11-20 19:04] LABS: Alanine Aminotransferase 20 U/L (12-78); Albumin Level 4.6 g/dl (3.5-5.0); Albumin/Globulin Ratio 1.6 (1.1-1.8); Alkaline Phosphatase 77 U/L (38-126); Anion Gap 12.3 mEq/L (5-15); Aspartate Amino Transferase 25 U/L (17-59); Bilirubin,Total 0.8 mg/dl (0.2-1.3); Blood Urea Nitrogen 18 mg/dl (9-20); Calcium 8.7 mg/dl (8.4-10.2); Carbon Dioxide 30 mmol/L (22.0-30.0); Chloride 98 mmol/L (98-107); Creatinine,Serum 0.70 mg/dl (0.66-1.25); Estimated Glomerular Filt Rate 110 ml/min (>60); GFR (African American) 133 ML/MIN (>60); Globulin 2.8 g/dL (1.3-3.2); Glucose 113 mg/dl (74-100); Potassium 4.3 mmoL/L (3.5-5.1); Sodium 136 mmol/L (136-145); Total Protein,Serum 7.4 g/dl (6.3-8.2)
--- OUTSIDE RECORDS SUMMARY | 2024-11-22 11:45 | XMS_ITS | Continuity of Care Document ---
Author Organization [facility] Address 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); History of colon cancer Discharge Disposition: Home or Self Care 10/23/2024 10:16 AM EDT - 10/23/2024 11:59 PM EDT Hospital Encounter [facility] [place], [place] [id number] Praneeth Fay MD Prostate cancer (HCC) (Primary Dx); 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); History of colon cancer; History of chemotherapy Discharge Disposition: Home or Self Care 10/18/2024 Orders Only [facility] [address] [place] [address] [facility] Prostate cancer (HCC); 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); History of colon cancer 10/18/2024 8:21 AM EDT - 10/18/2024 11:59 PM EDT Hospital Encounter [facility] [address] [address] Discharge Disposition: Home or Self Care 10/16/2024 Telephone [facility] [place] [address] Praneeth Fay MD Lab Orders (Needed labs for 10/23 follow up) 10/16/2024 Telephone [facility] [place] [address] Praneeth Fay MD Information Only (Confirming appointment ) 07/31/2024 Telephone [facility] [address] [place] [id number] Shyam Mckeon CGC Results 07/30/2024 Telephone [facility] [address] [place] [phone] Shyam Mckeon CGC Results 07/30/2024 Telephone [facility] [address] [place] [address] Shyam Mckeon CGC Results 07/27/2024 Orders Only [facility] [address] [place] [id number] Provider, Historical 07/18/2024 Telephone [facility] [place] [address] Praneeth Fay MD Schedule Appointment 07/18/2024 Telephone [facility] [place] [address] Praneeth Fay MD Results 07/17/2024 Orders Only [facility] [address] [place] [address] Shyam Mckeon, [facility] 07/17/2024 9:46 AM EST - 07/17/2024 10:19 AM EST Hospital Encounter [place] [address] Prostate cancer (HCC) (Primary Dx); Encounter for genetic screening; 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); History of colon cancer Discharge Disposition: Home or Self Care 07/17/2024 10:20 AM EST - 07/17/2024 11:59 PM EST Hospital Encounter [facility] [place] [address] Praneeth Fay MD Prostate cancer (HCC) (Primary Dx); 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); History of colon cancer; History of chemotherapy Discharge Disposition: Home or Self Care 07/16/2024 7:29 AM EST - 07/16/2024 11:59 PM EST [place] [address] Praneeth Fay MD Prostate cancer (HCC); History of colon cancer Discharge Disposition: Home or Self Care 07/13/2024 Orders Only [facility] [place] [address] Praneeth Fay MD 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) (Primary Dx); History of colon cancer 04/17/2024 10:00 AM EST - 04/17/2024 11:59 PM EST Hospital Encounter [facility] [address] [place], [place] [phone] Shyam Mckeon CGC Encounter for genetic screening (Primary Dx); Prostate cancer (HCC) Discharge Disposition: Home or Self Care 04/05/2024 Telephone [facility] [address] [place] [phone] Idalia Stock, Clerical Staff Schedule Appointment (Cancer) 03/29/2024 Telephone [facility] [address] [place] [address] Idalia Stock, Clerical Staff Schedule Appointment (Cancer) 03/29/2024 7:42 AM EST - 03/29/2024 11:59 PM EST Hospital Encounter [place] [address] Vanesa Salas APRN Prostate cancer (HCC) (Primary Dx) Discharge Disposition: Home or Self Care 03/27/2024 11:15 AM EST - 03/27/2024 11:35 AM EST Hospital Encounter [place] [address] Prostate cancer (HCC); History of colon cancer Discharge Disposition: Home or Self Care 03/27/2024 11:36 AM EST - 03/27/2024 11:59 PM EST Hospital Encounter [facility] [place] [address] Praneeth Fay MD Prostate cancer (HCC) (Primary Dx); 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 [address] Ban Kee MD 03/15/2024 1:20 PM EDT - 03/15/2024 11:59 PM EDT Hospital Encounter [facility] [address] [place] [address] Braden Hartley MD Abnormal finding on imaging; Screening for colon cancer Discharge Disposition: Home or Self Care 02/09/2024 Telephone [facility] [place] [address] Praneeth Fay MD Patient Question (Dr. 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); History of colon cancer Discharge Disposition: Home or Self Care 02/06/2024 10:40 AM EDT - 02/06/2024 11:59 PM EDT Hospital Encounter [facility] [place] [address] Praneeth Fay MD Prostate cancer (HCC) (Primary Dx); 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); History of colon cancer; History of chemotherapy Discharge Disposition: Home or Self Care 02/01/2024 Travel 02/01/2024 8:58 AM EDT - 02/01/2024 11:59 PM EDT Hospital Encounter [facility] [place] [address] Praneeth Fay MD 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); History of colon cancer Discharge Disposition: Home or Self Care 12/25/2023 Orders Only [facility] [place] [address] Praneeth Fay MD 10/07/2023 7:22 AM EDT - 10/07/2023 7:40 AM EDT Hospital Encounter [place] [address] Diana Metcalf MD Prostate cancer (HCC) (Primary Dx); 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) Discharge Disposition: Home or Self Care 10/07/2023 7:41 AM EDT - 10/07/2023 11:59 PM EDT Hospital Encounter [facility] [place] [address] Diana Metcalf MD Sullivan, Megan M, MIKE Prostate cancer (HCC) (Primary Dx); 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); History of colon cancer; History of chemotherapy; Port-A-Cath in place Discharge Disposition: Home or Self Care 09/27/2023 9:03 AM EDT - 09/27/2023 11:59 PM EDT Hospital Encounter [facility] [address] Diana Metcalf MD Holtzapfel, Catherine Ann, APRN Prostate cancer (HCC) (Primary Dx); Malignant neoplasm of ileocecal valve (HCC) Discharge Disposition: Home or Self Care 09/05/2023 Travel 09/05/2023 1:56 PM EDT - 09/05/2023 11:59 PM EDT Hospital Encounter [facility] [place] [address] Armen Vinson MD Kalakonda, Aditya, MD Alam, Masroor, MD Bleser, Jennifer M, CRNA Malignant neoplasm of ileocecal valve (HCC); History of colon resection Discharge Disposition: Home or Self Care 09/05/2023 3:12 PM EDT Anesthesia Event [facility] [place] [address] Rickey Lemus MD Powell, Jeanne, ORGANIZATIONAL DEVELOPMENT DIRECTOR 07/22/2023 Telephone [facility] [address], [address]RD [place] [address] Armen Vinson MD Colonoscopy 07/20/2023 Telephone [facility] [place] [address] Praneeth Fay MD Results 07/19/2023 9:13 AM EST - 07/19/2023 9:28 AM EST Hospital Encounter [place] [address] Diana Metcalf MD Prostate cancer (HCC) (Primary Dx); History of colon cancer Discharge Disposition: Home or Self Care 07/19/2023 9:29 AM EST - 07/19/2023 11:59 PM EST Hospital Encounter [facility] [place] [address] Diana Metcalf MD Kotlove, Matthew J, MD Prostate cancer (HCC) (Primary Dx); 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); History of colon cancer Discharge Disposition: Home or Self Care 07/18/2023 9:27 AM EST - 07/18/2023 11:59 PM EST Hospital Encounter [facility] [place] [address] Praneeth Fay MD History of colon cancer; Prostate cancer (HCC); 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) Discharge Disposition: Home or Self Care 05/10/2023 11:07 AM EST - 05/10/2023 11:28 AM EST Hospital Encounter [place] [address] Diana Metcalf MD Prostate cancer (HCC) (Primary Dx); History of colon cancer Discharge Disposition: Home or Self Care 05/10/2023 11:29 AM EST - 05/10/2023 11:59 PM EST Hospital Encounter [facility] [place] [address] Diana Metcalf MD Ott, Emilee Ann, APRN Prostate cancer (HCC) (Primary Dx); History of colon cancer; 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); Chemotherapy-induced neuropathy; Port-A-Cath in place Discharge Disposition: Home or Self Care 03/14/2023 7:45 AM EDT - 03/14/2023 11:59 PM EDT Hospital Encounter [place] [address] Diana Metcalf MD Holtzapfel, Catherine Ann, APRN Prostate cancer (HCC) (Primary Dx); Malignant neoplasm of ileocecal valve (HCC) Discharge Disposition: Home or Self Care 02/16/2023 Patient Outreach [place] [address] Priscilla Coburn, meat stringer Nurse Navigation (Onc NN exit interview/close) 02/08/2023 1:36 PM EDT - 02/08/2023 1:48 PM EDT Hospital Encounter [place] [address] Diana Metcalf MD Prostate cancer (HCC) (Primary Dx); Malignant neoplasm of ileocecal valve (HCC) Discharge Disposition: Home or Self Care 02/08/2023 1:49 PM EDT - 02/08/2023 11:59 PM EDT Hospital Encounter [facility] [place] [address] Diana Metcalf MD Kotlove, Matthew J, MD History of colon cancer (Primary Dx); Prostate cancer (HCC); 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) Discharge Disposition: Home or Self Care 02/07/2023 Orders Only [facility] [place] [address] Praneeth Fay MD Prostate cancer (HCC) (Primary Dx); Malignant neoplasm of ileocecal valve (HCC) 02/04/2023 Orders Only [facility] [place] [address] Praneeth Fay MD Prostate cancer (HCC) (Primary Dx) 12/30/2022 Telephone Cancer [facility] [place] [address] Praneeth Fay MD 12/28/2022 Patient Outreach [facility] [address] Dania Zuniga, meat stringer Nurse Navigation (outreach) 12/28/2022 Travel 12/28/2022 9:00 AM EDT - 12/28/2022 11:59 PM EDT Hospital Encounter Cancer [facility] [place] [address] Diana Metcalf MD Kotlove, Matthew J, MD 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); Prostate cancer (HCC) 11/25/2022 Specialty Pharmacy [facility] [address] [place] [address] Sienna Goncalves CPhT Pharmacy Oncology Management (Capecitabine) 11/25/2022 Refill [facility] [place] [address] Praneeth Fay MD Medication Refill 11/16/2022 Travel 11/16/2022 9:32 AM EDT - 11/16/2022 9:48 AM EDT Hospital Encounter [place] [address] Diana Metcalf MD 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) Discharge Disposition: Home or Self Care 11/16/2022 9:49 AM EDT - 11/16/2022 10:29 AM EDT Hospital Encounter [facility] [place] [address] Diana Metcalf MD Kotlove, Matthew J, MD 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); 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); Prostate cancer (HCC); Encounter for antineoplastic chemotherapy; Chemotherapy-induced neuropathy Discharge Disposition: Home or Self Care 11/16/2022 10:30 AM EDT - 11/16/2022 11:59 PM EDT Hospital Encounter [facility] [place] [address] Diana Metcalf MD 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) Discharge Disposition: Home or Self Care 11/04/2022 Specialty Pharmacy [facility] [address] [place] [address] Sienna Goncalves CPhT Pharmacy Oncology Management (Capecitabine) 11/04/2022 Refill [facility] [place] [address] Praneeth Fay MD Medication Refill 10/26/2022 Travel 10/26/2022 10:22 AM EDT - 10/26/2022 10:59 AM EDT Hospital Encounter [facility] [place] [address] Diana Metcalf MD Ott, Emilee Ann, APRN 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); 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); Prostate cancer (HCC); Encounter for antineoplastic chemotherapy; Maculopapular rash Discharge Disposition: Home or Self Care 10/26/2022 11:00 AM EDT - 10/26/2022 11:59 PM EDT Hospital Encounter [facility] [place] [place] [address] Diana Metcalf MD 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) Discharge Disposition: Home or Self Care 10/26/2022 10:06 AM EDT - 10/26/2022 10:21 AM EDT Hospital Encounter [place] [address] Diana Metcalf MD 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) Discharge Disposition: Home or Self Care 10/21/2022 Patient Outreach [facility] [place] [phone] Praneeth Fay MD Oncology Nurse Navigation (Care coordination) 10/21/2022 Telephone [facility] [place] [address] Praneeth Fay MD Medication Refill (Xeloda) 10/19/2022 Specialty Pharmacy [facility] [address] [place] [phone] Sienna Goncalves CPhT Pharmacy Oncology Management (Capecitabine) 10/19/2022 Refill [facility] [place] [address] Praneeth Fay MD Medication Refill 10/07/2022 Telephone [facility] [place] [address] Praneeth Fay MD Patient Question (patient is asking for a call from the clinic nurse to see about getting a blood test) 10/05/2022 Travel 10/05/2022 10:00 AM EDT - 10/05/2022 11:59 PM EDT Hospital Encounter [facility] [place] [phone] Diana Metcalf MD 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) Discharge Disposition: Home or Self Care 10/05/2022 9:30 AM EDT - 10/05/2022 9:39 AM EDT Hospital Encounter [place] [address] Diana Metcalf MD 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) Discharge Disposition: Home or Self Care 10/05/2022 9:40 AM EDT - 10/05/2022 9:59 AM EDT Hospital Encounter [facility] [place] [address] Diana Metcalf MD Kotlove, Matthew J, MD Prostate cancer (HCC) (Primary Dx); 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); Malignant neoplasm of ileocecal valve (HCC); Encounter for antineoplastic chemotherapy Discharge Disposition: Home or Self Care 09/30/2022 Telephone [facility] [place] [address] Praneeth Fay MD Other (Calling with [employer] for Nurse) 09/29/2022 Specialty Pharmacy [facility] [address] [place] [phone] Kelley Barakat, [facility] Pharmacy Oncology Management; Pharmacy Reassessment (capecitabine) 09/28/2022 Specialty Pharmacy [facility] [address] [place] [phone] Kacey Cordova, [facility] Pharmacy Oncology Management (Xeloda ) 09/28/2022 Refill [facility] [place] [phone] Praneeth Fay MD Medication Refill 09/21/2022 Travel 09/21/2022 Telephone [facility] [address] [place] [address] Selin Keller, RT Follow-up 09/21/2022 10:45 AM EDT - 09/21/2022 10:59 AM EDT Hospital Encounter [place] [address] Diana Metcalf MD Discharge Disposition: Home or Self Care 09/21/2022 11:00 AM EDT - 09/21/2022 11:59 PM EDT Hospital Encounter [facility] [place] [address] Diana Metcalf MD Ott, Emilee Ann, APRN 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); 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); Prostate cancer (HCC); Encounter for antineoplastic chemotherapy; CINV (chemotherapy-induce d nausea and vomiting); Chemotherapy induced diarrhea Discharge Disposition: Home or Self Care 09/17/2022 Telephone [facility] [place] [phone] Rebecca Merritt RN Follow-up (First chemotherapy follow up call) 09/14/2022 Patient Outreach [place] [address] Dania Zuniga RN Oncology Nurse Navigation (Face to face) 09/14/2022 Travel 09/14/2022 10:00 AM EDT - 09/14/2022 11:59 PM EDT Hospital Encounter [facility] [place] [place] [address] Diana Metcalf MD 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) Discharge Disposition: Home or Self Care 09/14/2022 9:13 AM EDT - 09/14/2022 9:29 AM EDT Hospital Encounter [place] [address] Diana Metcalf MD 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) Discharge Disposition: Home or Self Care 09/14/2022 9:30 AM EDT - 09/14/2022 9:59 AM EDT Hospital Encounter [facility] [place] [address] Diana Metcalf MD Kotlove, Matthew J, MD 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 He has his first tx tomorrow.) 09/09/2022 Orders Only [facility] [place] [phone] Praneeth Fay MD Prostate cancer (HCC) (Primary Dx) 09/09/2022 Specialty Pharmacy [facility] [address] [place] [phone] Kelley Barakat [facility] Pharmacy Oncology Management; Pharmacy Initial Assessment (capecitabine) 09/08/2022 Specialty Pharmacy [facility] [address] [place] [address] Sabine Suresh [facility] Pharmacy Oncology Management (Xeloda) 09/08/2022 Orders Only [facility] [place] [phone] Kelley Barakat [facility] Malignant neoplasm of ileocecal valve (HCC) 09/08/2022 Patient Outreach [place] [address] Praneeth Fay MD Oncology Nurse Navigation (Results follow up) 09/07/2022 9:01 AM EDT - 09/07/2022 11:59 PM EDT Hospital Encounter [facility] [address] [place] [phone] Praneeth Fay MD Young, Van An, MD Neoplasm; Prostate cancer (HCC); Malignant neoplasm of ileocecal valve (HCC) Discharge Disposition: Home or Self Care 09/06/2022 Travel 09/06/2022 9:28 AM EDT - 09/06/2022 11:59 PM EDT Hospital Encounter [facility] [address] [place] [address] Malignant neoplasm of ileocecal valve (HCC); Prostate cancer (HCC); Neoplasm Discharge Disposition: Home or Self Care 08/31/2022 Abstract [facility] [address] [place] [address] Luke Dahl, PharmD CYP2B6 intermediate metabolizer (HCC); [id number] ultrarapid metabolizer (HCC) 08/31/2022 Orders Only [facility] [address] [place] [address] Savannah Olmstead, Clerical Staff Prostate cancer (HCC) (Primary Dx) 08/27/2022 Patient Outreach [place] [address] Dania Zuniga, meat stringer Nurse Navigation (Care coordination) 08/27/2022 Travel 08/27/2022 12:40 PM EDT - 08/27/2022 11:59 PM EDT Hospital Encounter [facility] [place] [address] Diana Metcalf MD 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) Discharge Disposition: Home or Self Care 08/27/2022 12:26 PM EDT - 08/27/2022 12:39 PM EDT Hospital Encounter [place] [address] Diana Metcalf MD Malignant neoplasm of ileocecal valve (HCC); Prostate cancer (HCC) Discharge Disposition: Home or Self Care 08/26/2022 Orders Only [facility] [place] [address] Praneeth Fay MD 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) 08/26/2022 Orders Only [facility] [address] [place] [address] Selin Keller, RT Prostate cancer (HCC) (Primary Dx); Neoplasm 08/26/2022 Telephone [facility] [place] [address] Praneeth Fay MD Schedule Appointment 08/26/2022 Telephone [facility] [address] [place] [address] Regina Bethea, Clerical Staff Procedure (PAC Insert ) 08/26/2022 Telephone [facility] [place] [address] Praneeth Fay MD Schedule Appointment 08/25/2022 [place] [place] [address] Praneeth Fay MD 08/24/2022 Patient Outreach [facility] [address] Dania Zuniga, meat stringer Nurse Navigation (Face to face) 08/24/2022 Travel 08/24/2022 3:17 PM EDT - 08/24/2022 11:59 PM EDT Hospital Encounter [facility] [place] [address] Diana Metcalf MD Kotlove, Matthew J, MD 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); Prostate cancer (HCC); 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) Discharge Disposition: Home or Self Care 08/23/2022 Telephone [facility] [place] [address] Praneeth Fay MD New Patient 08/20/2022 Orders Only [facility] [place] [address] Vanesa Salas APRN Prostate cancer (HCC) (Primary Dx); Malignant neoplasm of ileocecal valve (HCC) 08/19/2022 7:41 AM EDT - 08/19/2022 11:59 PM EDT Hospital Encounter [facility] [place] [address] Diana Metcalf MD Holtzapfel, Catherine Ann, APRN Prostate cancer (HCC) (Primary Dx); Malignant neoplasm of ileocecal valve (HCC) Discharge Disposition: Home or Self Care 08/12/2022 7:46 AM EDT - 08/12/2022 11:59 PM EDT Hospital Encounter [facility] [place] [address] Diana Metcalf MD Holtzapfel, Catherine Ann, APRN Prostate cancer (HCC) (Primary Dx); Malignant neoplasm of ileocecal valve (HCC) Discharge Disposition: Home or Self Care 08/11/2022 8:46 AM EDT - 08/11/2022 11:59 PM EDT Hospital Encounter [place] [address] Diana Metcalf MD Holtzapfel, Catherine Ann, APRN Prostate cancer (HCC) (Primary Dx); Malignant neoplasm of ileocecal valve (HCC) Discharge Disposition: Home or Self Care 08/08/2022 Travel 07/19/2022 Travel 07/19/2022 9:57 AM EST - 07/19/2022 11:59 PM EST Hospital Encounter [place] [address] Diana Metcalf MD Holtzapfel, Catherine Ann, APRN Prostate cancer (HCC) (Primary Dx); Rising PSA level Discharge Disposition: Home or Self Care 07/15/2022 Travel 07/15/2022 10:12 AM EST - 07/15/2022 11:53 AM EST Hospital Encounter [facility] [address] [place] [address] Prostate cancer (HCC) Discharge Disposition: Home or Self Care 07/15/2022 11:54 AM EST - 07/15/2022 11:59 PM [place] [address] Diana Metcalf MD Prostate cancer (HCC) Discharge Disposition: Home or Self Care 07/12/2022 Travel 03/18/2022 Travel 03/18/2022 11:00 AM EDT Office Visit [facility] [address] [place] [address] [address] [place] [address] Sarina Huynh APRN Asymptomatic bilateral carotid artery stenosis (Primary Dx); Essential hypertension; Type 2 diabetes mellitus with other circulatory complication, without long-term current use of insulin (HCC) 03/18/2022 9:56 AM EDT - 03/18/2022 11:59 PM EDT Hospital Encounter [facility] [address] [facility] [address] [place] [address] Kumar Wilhelm MD Asymptomatic bilateral carotid artery stenosis Discharge Disposition: Home or Self Care 01/06/2022 Travel 01/06/2022 9:53 AM EDT - 01/06/2022 11:59 PM EDT Hospital Encounter [facility] [place] [address] Diana Metcalf MD Prostate cancer (HCC) (Primary Dx) Discharge Disposition: Home or Self Care 01/04/2022 Travel 01/04/2022 11:05 AM EDT - 01/04/2022 11:59 PM EDT Hospital En[place] [facility] [place] Dorsey [address] [place] [address] Encounter for follow-up examination after radiotherapy for malignant neoplasm; Personal history of prostate cancer Discharge Disposition: Home or Self Care 12/03/2021 Telephone [facility] [address] [facility] [address] [place] [address] Kumar Wilhelm MD Reschedule 11/13/2021 Travel 11/13/2021 12:19 PM EDT - 11/13/2021 11:59 PM EDT Hospital Encounter [facility] Physical Therapy Roslyn Marlin[address] [place] [address] Nelson Ribera, PT Lumbar radiculopathy (Primary Dx) Discharge Disposition: Home or Self Care 11/03/2021 Travel 11/03/2021 9:19 AM EDT - 11/03/2021 11:59 PM EDT Hospital Encounter [facility] Physical Therapy [address] [place] [address] [address] Nelson Ribera, PT Lumbar radiculopathy (Primary Dx) Discharge Disposition: Home or Self Care 10/28/2021 Plan of Care Documentation [facility] Physical Therapy Ros[place] [address] [place] [address] [address] 10/28/2021 Travel 10/28/2021 8:41 AM EDT - 10/28/2021 11:59 PM EDT Hospital Encounter [facility] Physical Therapy [address] [address] [place] [address] [address] Nelson Ribera, LUCRECIA Lumbar radiculopathy Discharge Disposition: Home or Self Care 07/03/2021 Travel 07/03/2021 11:29 AM EST - 07/03/2021 11:59 PM EST Hospital Encounter [place] [address] Vanesa Salas APRN Encounter for follow-up examination after radiotherapy for malignant neoplasm (Primary Dx); Personal history of prostate cancer Discharge Disposition: Home or Self Care 06/29/2021 Travel 06/29/2021 8:22 AM EST - 06/29/2021 11:59 PM EST Hospital Encounter [facility] [address] [address] Discharge Disposition: Home or Self Care 06/29/2021 Orders Only [facility] [address] [place], [place] [address] Amy Chang, RT Prostate cancer (HCC) 03/12/2021 Travel 03/12/2021 9:00 AM EDT Office Visit [facility] [address] [facility] [address] [place] [phone] Kumar Wilhelm MD Asymptomatic bilateral carotid artery stenosis (Primary Dx); Essential hypertension; Type 2 diabetes mellitus with other circulatory complication, without long-term current use of insulin (HCC); Personal history of prostate cancer; Stenosis of right subclavian artery 11/26/2020 3:25 PM EDT - 11/26/2020 11:59 PM EDT Hospital Encounter [place] [address] Vanesa Salas APRN Prostate cancer (HCC) (Primary Dx) Discharge Disposition: Home or Self Care 11/13/2020 Telephone [facility] [place] [address] Diana Metcalf MD Other (Appointment to go over results) 11/12/2020 Travel 11/12/2020 8:05 AM EDT - 11/12/2020 11:59 PM EDT Hospital Encounter [facility] [address] [address] Prostate cancer (HCC); Rising PSA level Discharge Disposition: Home or Self Care 05/08/2020 2:24 PM EST - 05/08/2020 11:59 PM EST Hospital Encounter [facility] [address] [place] [address] Vanesa Salas APRN Prostate cancer (HCC) (Primary Dx); Rising PSA level Discharge Disposition: Home or Self Care 05/06/2020 8:17 AM EST - 05/06/2020 11:59 PM EST Hospital Encounter [facility] [address] [address] Prostate cancer (HCC) Discharge Disposition: Home or Self Care 05/06/2020 Travel 10/25/2019 11:25 AM EDT - 10/25/2019 11:59 PM EDT Hospital Encounter [facility] [place] [address] Diana Metcalf MD Prostate cancer (HCC) (Primary Dx) Discharge Disposition: Home or Self Care 10/19/2019 7:55 AM EDT - 10/19/2019 11:59 PM EDT Hospital Encounter [facility] [address] [place] [address] Encounter for follow-up examination after radiotherapy for malignant neoplasm; Personal history of prostate cancer; Rising PSA following treatment for malignant neoplasm of prostate Discharge Disposition: Home or Self Care 10/19/2019 Travel 10/18/2019 Travel 09/20/2019 Telephone [facility] [place] [address] Lynne Cruz RN 04/17/2019 9:38 AM EST - 04/17/2019 11:59 PM EST Hospital Encounter [facility] [place] [address] Vanesa Salas APRN Encounter for follow-up examination after radiotherapy for malignant neoplasm (Primary Dx); Personal history of prostate cancer; Rising PSA following treatment for malignant neoplasm of prostate Discharge Disposition: Home or Self Care 04/13/2019 8:47 AM EST - 04/13/2019 11:59 PM EST Hospital Encounter [facility] [place] [address] 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) (Primary Dx) Discharge Disposition: Home or Self Care 10/06/2018 8:25 AM EDT - 10/06/2018 11:59 PM EDT Hospital Encounter [facility] [address] [place] [address] [address] Encounter for follow-up examination after radiotherapy for malignant neoplasm; Personal history of prostate cancer Discharge Disposition: Home or Self Care 04/12/2018 8:20 AM EST - 04/12/2018 11:59 PM EST Hospital Encounter [facility] [place] [address] Vanesa Salas APRN Encounter for follow-up examination after radiotherapy for malignant neoplasm (Primary Dx); Personal history of prostate cancer Discharge Disposition: Home or Self Care 04/10/2018 8:47 AM EST - 04/10/2018 11:59 PM EST Hospital Encounter [facility] [place] [address] Encounter for follow-up examination after radiotherapy for malignant neoplasm; Personal history of prostate cancer Discharge Disposition: Home or Self Care 10/07/2017 9:33 AM EDT - 10/07/2017 11:59 PM EDT Hospital Encounter [facility] [place] [place] [address] Vanesa Salas APRN Encounter for follow-up examination after radiotherapy for malignant neoplasm (Primary Dx); Personal history of prostate cancer Discharge Disposition: Home or Self Care 10/04/2017 1:17 PM EDT - 10/04/2017 11:59 PM EDT Hospital Encounter [facility] [address] [address] Encounter for follow-up examination after radiotherapy for malignant neoplasm; Personal history of malignant neoplasm of prostate Discharge Disposition: Home or Self Care 03/16/2017 1:32 PM EDT - 03/16/2017 11:59 PM EDT Hospital Encounter [facility] 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) (Primary Dx) 01/27/2016 8:29 AM EDT - 01/27/2016 11:59 PM EDT Hospital Encounter [facility] [place], [place] [address] History of prostate cancer Discharge Disposition: Home or Self Care 01/22/2016 Telephone [facility] [address] [place] [facility] [place] [address] Diana Metcalf MD Other 01/16/2016 Orders Only [facility] [address] [place] [address] Diana Metcalf MD History of prostate cancer (Primary Dx) 01/16/2016 Orders Only [facility] [address] [place] [address] Diana Metcalf MD Prostate cancer (HCC) 01/09/2016 Telephone [facility] [address] [place] [address] Diana Metcalf MD Other 07/22/2015 10:15 AM EST Office Visit [facility] [address] [place] [phone] Diana Metcalf MD Prostate cancer (HCC) (Primary Dx) 07/17/2015 3:41 PM EST - 07/17/2015 11:59 PM EST Hospital Encounter [facility] 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) (Primary Dx) 06/16/2015 1:00 PM EST Office Visit [facility] [address] [place] [address] Diana Metcalf MD 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) (Primary Dx) 06/02/2015 1:00 PM EST Office Visit [facility] [address] [place] [address] Diana Metcalf MD 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) (Primary Dx) 05/26/2015 1:00 PM EST Office Visit [facility] [address] [place] [address] Diana Metcalf MD 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) (Primary Dx) 05/19/2015 1:00 PM EST Office Visit [facility] [address] [place] [address] Diana Metcalf MD 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) (Primary Dx) 2015 7:00 AM EST Office Visit [facility] [address] [place] [address] Diana Metcalf MD 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) (Primary Dx) 04/08/2015 12:30 PM EST Office Visit [facility] [address] [place] [address] Diana Metcalf MD 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) (Primary Dx) 04/04/2015 Telephone [facility] [address] [place] [address] Diana Metcalf MD Other (Medical Records requested) 04/02/2015 Telephone [facility] [address] [place] [address] Diana Metcalf MD Other (Medical Records requested) 04/02/2015 Telephone [facility] [address] [place] [facility] [place] [address] Diana Metcalf MD Other (Medical Records request) 04/02/2015 Telephone [facility] [address] [place] [facility] [place] [address] Diana Metcalf MD Other (New patient appointment. critical access hospital) 04/02/2015 Telephone [facility] Central Scheduling [facility] [place] [address] Diana Metcalf MD Other 12/22/2011 7:26 AM EDT - 12/22/2011 8:56 AM EDT Hospital Encounter [facility] [place] [address] Ismael Collins MD Chest pain; Chest discomfort; Dizziness Discharge Disposition: Home or Self Care 12/22/2011 8:57 AM EDT - 12/22/2011 11:59 PM EDT Hospital Encounter [facility] [address] [place] [address] Ismael Collins MD Chest pain; Chest discomfort; Dizziness Discharge Disposition: Home or Self Care 12/22/2011 7:25 AM EDT Hospital Encounter [facility] [place] [address] Ismael Collins MD Chest pain; Chest discomfort; Dizziness Discharge Disposition: Home or Self Care 12/22/2011 7:25 AM EDT Hospital Encounter [facility] [place] [address] Ismael Collins MD Chest pain; Chest discomfort; Dizziness Discharge Disposition: Home or Self Care 12/24/2003 8:01 PM EDT - 12/24/2003 11:59 PM EDT Hospital Encounter [facility] Jeovanny Maravilla MD 09/03/1998 8:20 AM EDT - 09/03/1998 1:05 PM EDT Hospital Encounter [facility] Ismael Kelly MD 07/15/1998 3:00 PM EST - 07/15/1998 11:59 PM EST Hospital Encounter [facility] Israel Price MD Allergies No known active allergies Medications aspirin 81 mg Oral Tablet, Delayed Release (E.C.) Take 81 mg by mouth daily. Active metFORMIN (GLUCOPHAGE) 500 mg Oral Tablet Take 500 mg by mouth daily. Active losartan-hydroc hlorothiazide (HYZAAR) 100-12.5 mg Oral Tablet Take 1 Tab by mouth daily. Active rosuvastatin (CRESTOR) 5 mg Oral Tablet Take 5 mg by mouth every other day. Active metoprolol (LOPRESSOR) 25 mg Oral Tablet Take 25 mg by mouth daily. Active clotrimazole-be tamethasone (LOTRISONE) Top Cream Apply topically 2 times daily. Active empagliflozin (JARDIANCE) 10 mg Oral Tablet Take 10 mg by mouth daily. Active lidocaine-prilo lakeshia (EMLA) Top CreamIndication s:Prostate cancer (HCC) Apply one nickel sized glob over port approx 30 minutes before appt. DO NOT RUB IN. Cover with plastic wrap 30 g 2 5 Active lidocaine HCL (GLYDO) 2 % MM Jelly in ApplicatorIndic ations:Prostate cancer (HCC) Apply 2.5 mL topically once for 1 dose. 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 This can lead to higher drug levels of medications impacted by CYP2B6 such as efavirenz and sertraline. See Pharmacogenomics profile in Miscellaneous Reports tab (Chart Review > Misc Reports). 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 See Pharmacogenomics profile in Miscellaneous Reports tab (Chart Review > Misc Reports). 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 Outside duplex shows ICA/CCA 2.1 on the right, 2.6 on the left. PSV 125 on the left This is consistent with 50-69% stenosis bilaterally by ratio criteria. Antegrade vertebral arteries bilaterally Subclavian arteries not imaged Assessment & Plan (03/12/2021 10:14 AM EDT): Repeat duplex in 1 year Continue aspirin, crestor, BP control and glucose control Essential hypertension 03/12/2021 Assessment & Plan (03/12/2021 10:15 AM EDT): On Hyzaar, does not measure BP at home but will try to do so in the future DM2 (diabetes mellitus, type 2) 03/12/2021 Assessment & Plan (03/12/2021 10:14 AM EDT): Patient is on metformin, managed by PCP Stenosis of right subclavian artery 03/12/2021 Overview (03/12/2021): Right brachial cuff pressure 170/94 Left brachial cuff pressure 210/92 Asymptomatic. Subclavian arteries were not imaged during the patient's outside carotid duplex. Assessment & Plan (03/12/2021 10:17 AM EDT): Continue medical treatment. Will assess with the carotid duplex in 1 year Prostate cancer 10/27/2009 Assessment & Plan (03/12/2021 10:14 AM EDT): history of prostatectomy and pelvic radiation 10 years ago Immunizations Immunization Administration Dates Next Due Influenza Virus Vaccine Quadrivalant, Flublok Pneumococcal Polysaccharide 23 Valent 02/20/2015 Quadrivalent Influenza High Dose 04/06/2021 Family History Medical History Relation Name Comments Prostate cancer (HCC) Brother 1 Surgic ally treated Colon cancer (HCC) Brother 2 Surgery, radiation, chemo, continued surveillance Colon Cancer Father Recurrence befo re Breast Cancer Sister 1 Relation Name Status Comments Brother 1 Alive Brother 2 Alive Brother 3 (Age 50-55) d.plane crash Daughter Alive Father (Age 70-75) Maternal Grandfather (Age 90's) Maternal Grandmother (Age 90's) Mother (Age 101) Other 1 Other 2 Other 3 Other 4 Other 5 Other 6 Other 7 Other 8 Paternal Aunt (Age 103) Paternal Grandfather Paternal Grandmother (Age 99) Paternal Uncle 1 d.[place] Paternal Uncle 2 d.[place] Sister 1 (Age 58) d.cancer Sister 2 Alive Sister 3 d.infancy Sister 4 Alive Sister 5 Alive Son Alive Social History Smoking Status as of 11/22/2024 Tobacco Use Types Packs/Day Years Used Date Smoking Tobacco: Never Assessed PHQ-2 Answer Date Recorded PHQ-2 Total Score 0 10/07/2023 Sex and Gender Information Value Date Recorded Sex Assigned at Not on file Legal Sex Male 12:28 AM EDT Gender Identity Not on file Sexual Orientation Not on file Last Filed Vital Signs Vital Sign Reading [...] Mass Index 27.41 10/23/2024 10:02 AM EDT Plan of Treatment Upcoming Encounters Date Type Department Care Team (Late st Contact Info) Description 01/28/2025 9:00 AM EDT Appointment [facility] [place] [address] Praneeth Fay MD [address] [place] [address] [place] [address] 01/29/2025 10:00 AM EDT Appointment [place] [address] 01/29/2025 10:40 AM EDT [facility]ointment [facility] [place] [address] Praneeth Fay MD [address] [place] [address] [place] [address] Medical Devices Implanted Type Area [employer] Stitcher Device Identifier Shelf Expiration Date Model / Serial / Lot Port Chuck Ti Vortex 8fr W/Attachable Bioflo Cath-09/07/2022 Implanted:Qty: 1 on 09/07/2022 by Yariel Wood MD Right: Chest Wall [employer] [id number] / / [id number] Procedures Procedure Name Priority Date/Time Associated Diagnosis Comments MISCELLANEOUS LAB Routine 10/23/2024 10: 18 AM EDT Prostate cancer (HCC) 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) History of colon cancer CARCINOEMBRYONIC ANTIGEN STAT 10/18/2024 8:28 AM EDT Prostate cancer (HCC) 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) History of colon cancer PROSTATE SPECIFIC ANTIGEN (TUMOR MARKER) STAT 10/18/2024 8:28 AM EDT Prostate cancer (HCC) 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) History of colon cancer COMPREHENSIVE METABOLIC PANEL STAT 10/18/2024 8:28 AM EDT Prostate cancer (HCC) 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) History of colon cancer CBC WITH DIFF STAT 10/18/2024 8:28 AM EDT Prostate cancer (HCC) 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) History of colon cancer GENETIC SCANNING Routine 07/27/2024 8:14 AM EST CARCINOEMBRYONIC ANTIGEN STAT 07/17/2024 10:27 AM EST 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) History of colon cancer PROSTATE SPECIFIC ANTIGEN (TUMOR MARKER) Routine 07/17/2024 10:27 AM EST Prostate cancer (HCC) COMPREHENSIVE METABOLIC PANEL STAT 07/17/2024 10:27 AM EST Prostate cancer (HCC) CBC WITH DIFF STAT 07/17/2024 10:27 AM EST Prostate cancer (HCC) MISCELLANEOUS GENETIC TEST Routine 07/17/2024 10:27 AM EST Encounter for genetic screening CT ABDOMEN PELVIS W CONTRAST Routine 07/16/2024 8:21 AM EST Prostate cancer (HCC) History of colon cancer CREATININE ISTAT Routine 07/16/2024 8:19 AM EST CARCINOEMBRYONIC ANTIGEN Routine 03/27/2024 11:19 AM EST Prostate cancer (HCC) History of colon cancer PROSTATE SPECIFIC ANTIGEN (TUMOR MARKER) Routine 03/27/2024 11:19 AM EST Prostate cancer (HCC) COMPREHENSIVE METABOLIC PANEL STAT 03/27/2024 11:19 AM EST Prostate cancer (HCC) CBC WITH DIFF STAT 03/27/2024 11:19 AM EST Prostate cancer (HCC) COLONOSCOPY Routine 03/15/2024 2:16 PM EDT Abnormal finding on imaging Screening for colon cancer PATHOLOGY TISSUE REQUEST Routine 03/15/2024 2:04 PM EDT Abnormal finding on imaging Screening for colon cancer INTRAOP AIRWAY PLACEMENT Routine 03/15/2024 1:48 PM EDT GLUCOSE METER POC Routine 03/15/2024 12: 46 PM EDT CARCINOEMBRYONIC ANTIGEN Routine 02/06/2024 10:39 AM EDT Prostate cancer (HCC) 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) History of colon cancer PROSTATE SPECIFIC ANTIGEN (TUMOR MARKER) Routine 02/06/2024 10:39 AM EDT Prostate cancer (HCC) 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) History of colon cancer COMPREHENSIVE METABOLIC PANEL Routine 02/06/2024 10:39 AM EDT Prostate cancer (HCC) 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) History of colon cancer CBC WITH DIFF Routine 02/06/2024 10:39 AM EDT Prostate cancer (HCC) 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) History of colon cancer CT ABDOMEN PELVIS W CONTRAST Routine 02/01/2024 9:50 AM EDT 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) History of colon cancer CREATININE ISTAT Routine 02/01/2024 9:41 AM EDT COMPREHENSIVE METABOLIC PANEL STAT 10/07/2023 7:22 AM EDT Prostate cancer (HCC) 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) CBC WITH DIFF STAT 10/07/2023 7:22 AM EDT Prostate cancer (HCC) 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) COLONOSCOPY Routine 09/05/2023 3:28 PM EDT Malignant neoplasm of ileocecal valve (HCC) History of colon resection GLUCOSE METER POC Routine 09/05/2023 2:5 4 PM EDT CARCINOEMBRYONIC ANTIGEN Routine 07/19/2023 9:27 AM EST History of colon cancer PROSTATE SPECIFIC ANTIGEN (TUMOR MARKER) Routine 07/19/2023 9:27 AM EST Prostate cancer (HCC) COMPREHENSIVE METABOLIC PANEL STAT 07/19/2023 9:27 AM EST Prostate cancer (HCC) CBC WITH DIFF STAT 07/19/2023 9:27 AM EST Prostate cancer (HCC) CT CHEST ABDOMEN PELVIS W CONTRAST Routine 07/18/2023 9:47 AM EST History of colon cancer Prostate cancer (HCC) 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) CREATININE ISTAT Routine 07/18/2023 9:38 AM EST CARCINOEMBRYONIC ANTIGEN STAT 05/10/2023 11:19 AM EST History of colon cancer Prostate cancer (HCC) PROSTATE SPECIFIC ANTIGEN (TUMOR MARKER) STAT 05/10/2023 11:19 AM EST History of colon cancer Prostate cancer (HCC) COMPREHENSIVE METABOLIC PANEL STAT 05/10/2023 11:19 AM EST History of colon cancer Prostate cancer (HCC) CBC WITH DIFF STAT 05/10/2023 11:19 AM EST History of colon cancer Prostate cancer (HCC) CARCINOEMBRYONIC ANTIGEN Routine 02/08/2023 1:46 PM EDT Malignant neoplasm of ileocecal valve (HCC) PROSTATE SPECIFIC ANTIGEN (TUMOR MARKER) Routine 02/08/2023 1:46 PM EDT Prostate cancer (HCC) COMPREHENSIVE METABOLIC PANEL Routine 02/08/2023 1:46 PM EDT Prostate cancer (HCC) CBC WITH DIFF STAT 02/08/2023 1:46 PM EDT Prostate cancer (HCC) PROSTATE SPECIFIC ANTIGEN (TUMOR MARKER) Routine 12/28/2022 9:01 AM EDT Prostate cancer (HCC) MAGNESIUM LEVEL Routine 12/28/2022 9:01 AM EDT Prostate cancer (HCC) COMPREHENSIVE METABOLIC PANEL Routine 12/28/2022 9:01 AM EDT Prostate cancer (HCC) CBC WITH DIFF Routine 12/28/2022 9:01 AM EDT Prostate cancer (HCC) CT CHEST ABDOMEN PELVIS W CONTRAST Routine 12/27/2022 9:33 AM EDT Malignant neoplasm of ileocecal valve (HCC) CREATININE ISTAT Routine 12/27/2022 9:25 AM EDT PROSTATE SPECIFIC ANTIGEN (TUMOR MARKER) Routine 11/16/2022 9:47 AM EDT Malignant neoplasm of ileocecal valve (HCC) CARCINOEMBRYONIC ANTIGEN Routine 11/16/2022 9:47 AM EDT Malignant neoplasm of ileocecal valve (HCC) COMPREHENSIVE METABOLIC PANEL STAT 11/16/2022 9:47 AM EDT Malignant neoplasm of ileocecal valve (HCC) CBC WITH DIFF STAT 11/16/2022 9:47 AM EDT Malignant neoplasm of ileocecal valve (HCC) COMPREHENSIVE METABOLIC PANEL STAT 10/26/2022 10:20 AM EDT Malignant neoplasm of ileocecal valve (HCC) CBC WITH DIFF STAT 10/26/2022 10:20 AM EDT Malignant neoplasm of ileocecal valve (HCC) COMPREHENSIVE METABOLIC PANEL STAT 10/05/2022 9:51 AM EDT Malignant neoplasm of ileocecal valve (HCC) CBC WITH DIFF STAT 10/05/2022 9:51 AM EDT Malignant neoplasm of ileocecal valve (HCC) MAGNESIUM LEVEL Routine 09/21/2022 10:58 AM EDT Prostate cancer (HCC) COMPREHENSIVE METABOLIC PANEL Routine 09/21/2022 10:58 AM EDT Prostate cancer (HCC) CBC WITH DIFF STAT 09/21/2022 10:58 AM EDT Prostate cancer (HCC) MAGNESIUM LEVEL STAT 09/14/2022 9:27 AM EDT Malignant neoplasm of ileocecal valve (HCC) COMPREHENSIVE METABOLIC PANEL STAT 09/14/2022 9:27 AM EDT Malignant neoplasm of ileocecal valve (HCC) CBC WITH DIFF STAT 09/14/2022 9:27 AM EDT Malignant neoplasm of ileocecal valve (HCC) IR ULTRASOUND GUIDED VASCULAR ACCESS Routine 09/07/2022 10:44 AM EDT Prostate cancer (HCC) Malignant neoplasm of ileocecal valve (HCC) IR PORT PLACEMENT EQUAL OR > 5 YEARS Routine 09/07/2022 10:44 AM EDT Prostate cancer (HCC) Malignant neoplasm of ileocecal valve (HCC) CBC WITH DIFF STAT 09/06/2022 9:34 AM EDT Prostate cancer (HCC) PT / INR STAT 09/06/2022 9:34 AM EDT Prostate cancer (HCC) Neoplasm PHARMACOGENOMIC PANEL Routine 09/01/2022 8:53 AM EDT Prostate cancer (HCC) PROSTATE SPECIFIC ANTIGEN (TUMOR MARKER) Routine 08/27/2022 12:37 PM EDT Prostate cancer (HCC) CARCINOEMBRYONIC ANTIGEN Routine 08/27/2022 12:37 PM EDT Malignant neoplasm of ileocecal valve (HCC) COMPREHENSIVE METABOLIC PANEL Routine 08/27/2022 12:37 PM EDT Malignant neoplasm of ileocecal valve (HCC) CBC WITH DIFF Routine 08/27/2022 12:37 PM EDT Malignant neoplasm of ileocecal valve (HCC) PATHOLOGY TISSUE ADD-ON ORDER Routine 08/26/2022 4:32 PM EDT Malignant neoplasm of ileocecal valve (HCC) PET CT PSMA SKULL BASE TO MID THIGH Routine 07/15/2022 1:39 PM EST Prostate cancer (HCC) PROSTATE SPECIFIC ANTIGEN (TUMOR MARKER) Routine 07/15/2022 10:19 AM EST Prostate cancer (HCC) VA US CAROTID DUPLEX BILATERAL Routine 03/18/2022 10:58 AM EDT Asymptomatic bilateral carotid artery stenosis PROSTATE SPECIFIC ANTIGEN (TUMOR MARKER) Routine 01/04/2022 11:10 AM EDT Encounter for follow-up examination after radiotherapy for malignant neoplasm Personal history of prostate cancer PROSTATE SPECIFIC ANTIGEN (TUMOR MARKER) Routine 06/29/2021 8:43 AM EST Prostate cancer (HCC) PROSTATE SPECIFIC ANTIGEN (TUMOR MARKER) Routine 11/12/2020 8:21 AM EDT Prostate cancer (HCC) Rising PSA level PROSTATE SPECIFIC ANTIGEN (TUMOR MARKER) Routine 05/06/2020 8:17 AM EST Prostate cancer (HCC) PROSTATE SPECIFIC ANTIGEN (TUMOR MARKER) Routine 10/19/2019 7:58 AM EDT Encounter for follow-up examination after radiotherapy for malignant neoplasm Personal history of prostate cancer Rising PSA following treatment for malignant neoplasm of prostate PROSTATE SPECIFIC ANTIGEN (TUMOR MARKER) Routine 04/13/2019 8:47 AM EST 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) PROSTATE SPECIFIC ANTIGEN (TUMOR MARKER) Routine 10/06/2018 8:25 AM EDT Encounter for follow-up examination after radiotherapy for malignant neoplasm Personal history of prostate cancer PROSTATE SPECIFIC ANTIGEN (TUMOR MARKER) Routine 04/10/2018 8:49 AM EST Encounter for follow-up examination after radiotherapy for malignant neoplasm Personal history of prostate cancer PROSTATE SPECIFIC ANTIGEN (TUMOR MARKER) Routine 10/04/2017 1:17 PM EDT Encounter for follow-up examination after radiotherapy for malignant neoplasm Personal history of malignant neoplasm of prostate PROSTATE SPECIFIC ANTIGEN (TUMOR MARKER) Routine 02/28/2017 8:08 AM EDT 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) GMED COLONOSCOPY Routine 11/30/2016 7:00 AM EDT PROSTATE SPECIFIC ANTIGEN (TUMOR MARKER) Routine 07/19/2016 8:25 AM EST 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) PROSTATE SPECIFIC ANTIGEN (TUMOR MARKER) Routine 01/27/2016 8:35 AM EDT History of prostate cancer PROSTATE SPECIFIC ANTIGEN (TUMOR MARKER) Routine 07/17/2015 9:20 AM EST 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) CT SIMULATION FOR TREATMENT PLANNING Routine 04/16/2015 9:55 AM EST Prostate cancer (HCC) SCANNED RADIOLOGY REPORT 12/22/2011 12:27 PM EDT NM MYOCARDIAL PERFUSION SPECT STRESS AND REST Routine 12/22/2011 11:55 AM EDT Chest pain Chest discomfort Dizziness ST STRESS TEST EXERCISE Routine 12/22/19 12 10:49 AM EDT Chest pain Chest discomfort Dizziness EC ECHOCARDIOGRAM COMPLETE W DOPPLER AND COLOR FLOW MAPPING Routine 12/22/2011 8:34 AM EDT Chest pain Chest discomfort Dizziness VA US CAROTID DUPLEX BILATERAL Routine 12/22/2011 7:59 AM EDT Chest pain Chest discomfort Dizziness Results * MISCELLANEOUS LAB (10/23/2024 10:18 AM EDT) MISC COMMENT Diann 10/24/2024 7:04 AM EDT [facility] Blood VASCULAR PORT AND CATHETER / Unknown Port / Unknown 10/23/2024 10:18 AM EDT 10/24/2024 7:03 AM EDT us Praneeth Fay MD HEMATOLOGY ORDERABLES Final Result [facility] [address] [place] [id number] * (ABNORMAL) CBC WITH DIFF (10/18/2024 8:28 AM EDT) Only the most recent of16 resultswithin the time period is included. WBC 5.6 3.7 - 10.3 x10(3)/mcL 10/18/2024 11:02 AM EDT [facility] RBC 5.36 4.60 - 6.10 x10(6)/mcL 10/18/2024 11:02 AM EDT [facility] Hgb 16.3 13.7 - 17.5 g/dL 10/18/2024 11:02 AM EDT [facility] Hct 51.0 40.0 - 51.0 % 10/18/2024 11:02 AM EDT [facility] MCV 95.1 80.0 - 100.0 fL 10/18/2024 11:02 AM EDT [facility] MCH 30.4 26.0 - 34.0 pg 10/18/2024 11:02 AM EDT [facility] MCHC 32.0 30.7 - 35.5 g/dL 10/18/2024 11:02 AM EDT [facility] RDW 12.0 <=14.9 % 10/18/2024 11:02 AM EDT [facility] Platelet 240 155 - 369 x10(3)/mcL 10/18/2024 11:02 AM EDT [facility] MPV 9.6 8.8 - 12.5 fL 10/18/2024 11:02 AM EDT [facility] Neut Percent 65.6 % 10/18/2024 11:02 AM EDT [facility] Comment:Neutrophils equals s egs plus bands Imm Gran% 0.7 % 10/18/2024 11:02 AM EDT [facility] Comment:Automated count of m etamyelocytes, myelocytes and promyelocytes. Lymph Percent 20.2 % 10/18/2024 11:02 AM EDT [facility] [place] Percent 10.6 % 10/18/2024 11:02 AM EDT [facility] Eos Percent 2.0 % 10/18/2024 11:02 AM EDT [facility] Baso Percent 0.9 % 10/18/2024 11:02 AM EDT [facility] Neut # 3.7 1.6 - 6.1 x10(3)/mcL 10/18/2024 11:02 AM EDT [facility] Comment:Neutrophils equals s egs plus bands IMMGRAN# 0.0 0.0 - 0.1 x10(3)/mcL 10/18/2024 11:02 AM EDT [facility] Comment:Automated count of m etamyelocytes, myelocytes and promyelocytes. An absolute IG <0.1 is reported as 0.0. Lymph # 1.1(L) 1.2 - 3.9 x10(3)/[facility] 10/18/2024 11:02 AM EDT [facility], [facility] [place] # 0.6 0.3 - 0.9 x10(3)/[facility] 10/18/2024 11:02 AM EDT [facility], [facility] Eos# 0.1 0.0 - 0.5 x10(3)/[facility] 10/18/2024 11:02 AM EDT [facility], [facility] Baso # 0.1 0.0 - 0.1 x10(3)/[facility] 10/18/2024 11:02 AM EDT [facility] [email or web address] [facility] Blood VENOUS BLOOD / Unknown Venipuncture / Unknown 10/18/2024 8:28 AM EDT 10/18/2024 8:28 AM EDT us Praneeth Fay MD HEMATOLOGY ORDERABLES Final Result [facility], [facility] [address] , [place] [address] * (ABNORMAL) PROSTATE SPECIFIC ANTIGEN (TUMOR MARKER) (10/18/2024 8:28 AM EDT) Only the most recent of24 resultswithin the time period is included. Total Psa 6.52(H) <=4.00 ng/mL 10/18/2024 11:28 AM EDT [facility] [email or web address] [facility] Blood VENOUS BLOOD / Unknown Venipuncture / Unknown 10/18/2024 8:28 AM EDT 10/18/2024 8:28 AM EDT Narrative [facility] [email or web address] [facility] - 10/18/2024 11:28 AM EDT The Maggie Elecsys total PSA electrochemiluminescence (ECLIA) immunoassay is used. Results obtained with different test methods or kits cannot be used interchangeably. The Maggie method is approved for use as an aid in the detection of prostate cancer when used in conjunction with a digital rectal exam in individuals with a prostate aged 50 years or older. The assay is also indicated for the serial measurement of PSA to aid in the prognosis and management of prostate cancer patients. Elevated tPSA concentrations can only suggest the presence of prostate cancer until biopsy is performed. Levels may also be elevated in benign prostatic hyperplasia or inflammatory conditions of the prostate. Praneeth Fay MD CHEMISTRY ORDERABLES Final Result Performing Organization Address [facility] de Phone Number [facility] [address] , [place] [address] * CARCINOEMBRYONIC ANTIGEN (10/18/2024 8:28 AM EDT) Only the most recent of9 resultswithin the time period is included. Pathologist [facility] CEA 4.24 ng/mL 10/18/2024 12:18 PM EDT [employer] Comment: Non-Smokers: <= 5.0 ng/mL Smokers: <= 10.0 ng/mL [employer] uses the [employer] CEA assay, which is intended to be used as an aid in the prognosis and management of cancer patients. CEA can have significant value in the monitoring of patients with diagnosed malignancies in whom changing concentrations of CEA are observed. CEA testing is not recommended as a screening test for the general population. Values obtained with different assay methods should not be used interchangeably. Blood VENOUS BLOOD / Unknown Venipuncture / Unknown 10/18/2024 8:28 AM EDT 10/18/2024 8:28 AM EDT Praneeth Fay MD CHEMISTRY ORDERABLES Final Result Performing Organization Address [facility] Phone Number [employer] [address] , [place] [address] * (ABNORMAL) COMPREHENSIVE METABOLIC PANEL (10/18/2024 8:28 AM EDT) Only the most recent of15 resultswithin the time period is included. [facility] Sodium 139 136 - 145 mmol/L 10/18/2024 11:23 AM EDT [facility] Potassium 4.1 3.5 - 5.0 mmol/L 10/18/2024 11:23 AM EDT [facility] Chloride 98 98 - 107 mmol/L 10/18/2024 11:23 AM EDT [facility] Total CO2 32(H) 22 - 29 mmol/L 10/18/2024 11:23 AM EDT [facility] Anion Gap 9 7 - 16 mmol/L 10/18/2024 11:23 AM EDT [facility] Calcium 9.9 8.8 - 10.4 mg/dL 10/18/2024 11:23 AM EDT [facility] Glucose Lvl 171(H) 70 - 99 mg/dL 10/18/2024 11:23 AM EDT [facility] BUN 18 8 - 23 mg/dL 10/18/2024 11:23 AM EDT [facility] Creatinine 0.66(L) 0.67 - 1.30 mg/dL 10/18/2024 11:23 AM EDT [facility] Albumin 4.4 3.2 - 4.6 gm/dL 10/18/2024 11:23 AM EDT [facility] Total Protein 7.3 6.4 - 8.3 gm/dL 10/18/2024 11:23 AM EDT [facility] Bili Total 0.4 0.2 - 1.4 mg/dL 10/18/2024 11:23 AM EDT [facility] ALT 18 <=41 U/L 10/18/2024 11:23 AM EDT [facility] AST 10 <=40 U/L 10/18/2024 11:23 AM EDT [facility] Alk Phos 83 40 - 129 U/L 10/18/2024 11:23 AM EDT [facility] eGFR (CKD-EPIcr 2020) 98 >=60 mL/min/1.7 3 m2 10/18/2024 11:23 AM EDT [facility] Comment:Estimated GFR was ca lculated using the CKD-EPIcr (2020) equation refit without race. The equation is recommended by the National Kidney Foundation - [place] [employer] Nephrology Task Force. Blood VENOUS BLOOD / Unknown Venipuncture / Unknown 10/18/2024 8:28 AM EDT 10/18/2024 8:28 AM EDT Praneeth Fay MD CHEMISTRY ORDERABLES Final Result Performing Organization Address City/[facility]/ZIP Co de Phone Number [facility] [address] [facility], [place] [address] * GENETIC SCANNING (07/27/2024 8:14 AM EST) Blood Historical Provider HEMATOLOGY ORDERABLES Final Result NILESH [address] [facility] [address] [phone] * MISCELLANEOUS GENETIC TEST (07/17/2024 10:27 AM EST) [facility] COMMENT [facility] blood + RNA 07/18/2024 8:27 AM EST [facility] Blood VENOUS STRUCTURE / Unknown Port / Unknown 07/17/2024 10:27 AM EST 07/18/2024 8:27 AM EST Lillie Montejo MD HEMATOLOGY ORDERABLE S Final Result Performing Organization Address [facility] de Phone Number [facility] [address] [place] [id number] * CT ABDOMEN PELVIS W CONTRAST (07/16/2024 8:21 AM EST) Only the most recent of2 resultswithin the time period is included. Anatomical Region Laterality Modality Abdomen, Chest, Pelvis, Hip Comp uted Tomography 07/16/2024 8:21 AM EST Impressions 07/16/2024 11:59 AM EST Stable right iliac lymph node. No new or enlarging adenopathy or clear progressive malignancy/metastatic disease. Narrative 07/16/2024 11:[address] ABDOMEN AND PELVIS WITH CONTRAST, 07/16/2024 8:21 AM CLINICAL HISTORY: [id number] neoplasm of prostate (HCC)-ICD-10-CM Z85.038-Personal history of other malignant neoplasm of large [id number] COMPARISON: 2023 PROCEDURE COMMENTS: Multi-detector volumetric scanning of the abdomen and pelvis with multiplanar reformatting. 100 mL Isovue 370 IV contrast given along with radiodense GI contrast. FINDINGS: The lung bases are clear. The liver, gallbladder, pancreas, spleen and adrenals are unremarkable. The kidneys enhance symmetrically without obstruction. The bladder is moderately distended, grossly normal. The prostate gland has been resected. The small and large bowel are normal in caliber without obstruction or wall thickening. Scattered colonic diverticula. No new or enlarging adenopathy. Right iliac lymph node not substantially changed measuring approximately 1 x 1.3 cm. Mild plaque involving abdominal aorta and branch vessels. No suspicious osseous lesion. Procedure Note Murali Wood MD - 07/16/2024 CT ABDOMEN AND PELVIS WITH CONTRAST, 07/16/2024 8:21 AM CLINICAL HISTORY: [id number]-[id number] neoplasm of prostate (HCC)-ICD-10-CM Z85.038-Personal history of other malignant neoplasm of large [id number] COMPARISON: 2023 PROCEDURE COMMENTS: Multi-detector volumetric scanning of the abdomenand pelvis with multiplanar reformatting. 100 mL Isovue 370 IV contrast givenalong with radiodense GI contrast. FINDINGS: The lung bases are clear. The liver, gallbladder, pancreas, spleen and adrenals are unremarkable. The kidneys enhance symmetrically without obstruction. The bladder ismoderately distended, grossly normal. The prostate gland has been resected. The small and large bowel are normal in caliber without obstruction orwall thickening. Scattered colonic diverticula. No new or enlarging adenopathy. Right iliac lymph node not substantiallychanged measuring approximately 1 x 1.3 cm. Mild plaque involving abdominal aorta and branch vessels. No suspicious osseous lesion. IMPRESSION: Stable right iliac lymph node. No new or enlarging adenopathy or clear progressive malignancy/metastatic disease. us Praneeth Fay MD IM CT ORDERABLES Final Res ult * CREATININE ISTAT (07/16/2024 8:19 AM EST) Only the most recent of4 resultswithin the time period is included. Creatinine-iST AT 0.7 0.6 - 1.3 mg/dL 07/16/2024 8:22 AM EST [facility] Blood BLOOD SPECIMEN / Unknown 07/16/2024 8:19 AM EST 07/16/2024 8:22 AM EST us Praneeth Fay MD POINT OF CARE TEST ORDERABL ES Final Result [facility] [address] [place] [id number] * COLONOSCOPY (03/15/2024 2:16 PM EDT) Anatomical Region Laterality Modality Endoscopy Narrative 03/15/2024 2:38 PM EDT Table formatting from the original result was not included. Findings Healthy end-to-side ileocolonic anastomosis in the proximal transverse colon; no bleeding was identified; performed cold forceps biopsy Multiple medium, scattered diverticula of mild severity in the descending colon and sigmoid colon One sessile and adenomatous-appearing polyp measuring 5-9 mm in the descending colon; performed cold snare with complete en bloc removal and retrieved specimen Recommendation Await pathology results - Findings on imaging likely an artifact and no evidence of malignancy or recurrence - Some mild erythema at the anastomosis which is non specific s/p biopsy Pre-Procedure Diagnosis / Indication Abnormal finding on imaging, Screening for colon cancer Post-Procedure Diagnosis Abnormal finding on imaging, Screening for colon cancer Staff Staff Role Braden Hartley MD Performing Provider Gela Nuno RN Hand I Blocker Ban Kee MD Anesthesiologist Medications See Anesthesia Record. Preprocedure A history and physical has been performed, and patient medication allergies have been reviewed. The patient's tolerance of previous anesthesia has been reviewed. The risks and benefits of the procedure and the sedation options and risks were discussed with the patient. All questions were answered and informed consent obtained. ASA 3 - Patient with severe systemic disease Details of the Procedure The patient underwent monitored anesthesia care, which was administered by an anesthesia professional. The patient's blood pressure, heart rate, level of consciousness, oxygen, respirations, ECG and ETCO2 were monitored throughout the procedure. A digital rectal exam was performed. The scope was introduced through the anus and advanced to the cecum. Retroflexion was performed in the rectum. Bowel prep was adequate. The patient experienced no blood loss. The procedure was not difficult. The patient tolerated the procedure well. There were no apparent adverse events. Patient provided education and educated on specific discharge instructions. Patient educated on medications given during the procedure and new medications for discharge. Patient verbalizes understanding of discharge education. Patient stable and awaiting transport for discharge. Events Procedure Events Event Event Time ENDO SCOPE IN TIME 03/15/2024 1:58 PM ENDO CECUM REACHED 03/15/2024 2:02 PM ENDO SCOPE OUT TIME 03/15/2024 2:11 PM Specimens ID Type Source Tests Collected by Time 1 : Colon anastomosis biopsy Tissue Colon PATHOLOGY TISSUE REQUEST Braden Hartley MD 03/15/2024 1404 2 : Descending colon polyp via cold snare Tissue Large Intestine, Left/Descending Colon PATHOLOGY TISSUE REQUEST Braden Hartley MD 03/15/2024 1410 Anesthesia Event Time In Patient In - Proc. Room 01:45 PM Patient Out - Proc. Room 02:16 PM Braden Hartley MD ENDOSCOPY PROCEDURE ORDERABL ES Final Result * PATHOLOGY TISSUE REQUEST (03/15/2024 2:04 PM EDT) CASE REPORT Surgical Pathology Case: [id number] Authorizing Provider: Braden Hartley MD Collected: 03/15/2024 1404 Ordering Location: [facility] Received: 03/15/2024 1604 Pathologist: Tung Tom MD Specimens: A) - Colon, Colon anastomosis biopsy B) - Large Intestine, Left/Descending Colon, Descending colon polyp via cold snare 03/16/2024 3:25 PM EDT [facility] FINAL DIAGNOSIS A. Colon, anastomosis, biopsy: - Fragment of colonic mucosa with no histopathologic change B. Colon, descending, polyp, biopsy: - Tubular adenoma 03/16/2024 3:25 PM EDT [facility] at 1525 EDT GROSS DESCRIPTION A. Received in formalin and labeled with the patient's name, medical record number, and colon anastomosis biopsy are four fragments of serrano tissue ranging from 0.2 to 0.5 cm in greatest dimension. Entirely submitted in one cassette labeled A1. ZN 03/16/2024 6:40 AM B. Received in formalin and labeled with the patient's name, medical record number, and descending colon polyp is a fragment of serrano tissue, 0.7 cm in greatest dimension. Entirely submitted in one cassette labeled B1. ZN 03/16/2024 6:40 AM 03/16/2024 3:[address] [facility] MICROSCOPIC DESCRIPTION Microscopic examination is performed and the findings corroborate the diagnosis. 03/16/2024 3:25 PM EDT [facility] EMBEDDED IMAGES 03/16/2024 3:[address] [facility] Tissue COLON STRUCTURE / Unknown 03/15/2024 2:04 PM EDT 03/15/2024 4:04 PM EDT Tissue specimen (specimen) DESCENDING COLON STRUCTURE / Unknown 03/15/2024 2:10 PM EDT 03/15/2024 4:04 PM EDT Braden Hartley MD PATHOLOGY ORDERABLES Final R esult Performing Organization Address [facility]/ZIP Co de Phone Number [facility] [address] [place] [address] * INTRAOP AIRWAY PLACEMENT (03/15/2024 1:48 PM EDT) Narrative [facility] - 03/15/2024 1:48 PM EDT Ban Kee MD 03/15/2024 2:08 PM Intraop Airway Placement: Date/Time: 03/15/2024 1:48 PM Airway type: Nasal cannula salter Ban Kee MD RI ANESTHESIA Edited Resul t - Final Performing Organization Address [facility] Co de Phone Number [facility] [address] [place] [address] * (ABNORMAL) GLUCOSE METER POC (03/15/2024 12:46 PM EDT) Only the most recent of2 resultswithin the time period is included. Glucose Meter POC 124(H) 70 - 100 mg/dL 03/15/2024 1:02 PM EDT [facility] Sample Type Capillary 03/15/2024 1:[address] [facility] Patient Status Non-Critical Patient 03/15/2024 1:02 PM EDT [facility] Blood BLOOD SPECIMEN / Unknown 03/15/2024 12:46 PM EDT 03/15/2024 1:02 PM EDT Braden Hartley MD POINT OF CARE TEST ORDERABLE S Final Result [facility] [address] [place] [address] * COLONOSCOPY (09/05/2023 3:28 PM EDT) Anatomical Region Laterality Modality Endoscopy Addenda Addendum by Braden Hartley MD on 09/13/2023 2:20 PM EDT Table formatting from the original result was not included. Findings Healthy end-to-side colocolonic anastomosis in the hepatic flexure Recommendation Repeat colonoscopy in 3 years, due: 09/04/2026 Personal history of colon cancer Family history of colon cancer Indication Personal history of colon cancer, family history of colon cancer Staff Staff Role Braden Hartley MD Performing Provider Rickey Lemus MD Anesthesiologist Mimi Ann, rag washer Nurse Thong Corona MD Anesthesiologist Jesus Celis, THOMAS Michaels RN Hand I Blocker Medications See Anesthesia Record. Preprocedure A history and physical has been performed, and patient medication allergies have been reviewed. The patient's tolerance of previous anesthesia has been reviewed. The risks and benefits of the procedure and the sedation options and risks were discussed with the patient. All questions were answered and informed consent obtained. ASA 3 - Patient with severe systemic disease Details of the Procedure The patient underwent monitored anesthesia care, which was administered by an anesthesia professional. The patient's blood pressure, heart rate, level of consciousness, oxygen, respirations, ECG and ETCO2 were monitored throughout the procedure. A digital rectal exam was performed. The scope was introduced through the anus and advanced to the cecum. Retroflexion was performed in the rectum. Bowel prep was adequate. The patient experienced no blood loss. The procedure was not difficult. The patient tolerated the procedure well. There were no apparent adverse events. Patient provided education and educated on specific discharge instructions. Patient educated on medications given during the procedure and new medications for discharge. Patient verbalizes understanding of discharge education. Patient stable and awaiting transport for discharge. Events Procedure Events Event Event Time ENDO SCOPE IN TIME 09/05/2023 3:17 PM ENDO CECUM REACHED 09/05/2023 3:19 PM ENDO SCOPE OUT TIME 09/05/2023 3:27 PM Specimens No specimens collected Anesthesia Event Time In Patient In - Proc. Room 03:12 PM Patient Out - Proc. Room 03:28 PM us Armen Vinson MD ENDOSCOPY PROCEDURE ORDERAB LES Edited Result - Final * CT CHEST ABDOMEN PELVIS W CONTRAST (07/18/2023 9:47 AM EST) Only the most recent of2 resultswithin the time period is included. Anatomical Region Laterality Modality Abdomen, Chest, Pelvis Computed Tomography 07/18/2023 9:47 AM EST Impressions 07/18/2023 12:13 PM EST CHEST: No evidence of intrathoracic metastatic disease. ABDOMEN/PELVIS: Stable exam including subcentimeter right external iliac chain lymph nodes. Otherwise, no evidence of metastatic disease in the abdomen or pelvis. 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 PROCEDURE COMMENTS: Multidetector volumetric CT with multiplanar reconstructions from the thoracic inlet through the lung bases and from the lung bases through the pubic symphysis with IV administration of 100 mL Isovue 370. Automated exposure control for dose reduction was used. FINDINGS: CHEST: There is no suspicious pulmonary nodule, consolidation, or pleural effusion. Sequela of healed granulomatous disease is again noted. The central airways are patent. A right IJ port catheter terminates at the cavoatrial junction. There are no pathologically enlarged lymph nodes. No osteolytic or osteoblastic lesion is noted. ABDOMEN & PELVIS: The liver, gallbladder, spleen, pancreas, and adrenal glands are unremarkable. The kidneys enhance symmetrically. Mild left caliectasis or parapelvic cysts are unchanged. The bladder is incompletely distended. The prostate is surgically absent. Changes of right hemicolectomy are redemonstrated. The remaining bowel is normal in caliber without evidence of obstruction or an acute inflammatory process. Significant diverticulosis is again noted. Subcentimeter right external iliac chain lymph nodes are unchanged. The largest again measures 9 x 7 mm and is hyperattenuating. No osteolytic or osteoblastic lesion is noted. 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 PROCEDURE COMMENTS: Multidetector volumetric CT with multiplanarreconstructions from the thoracic inlet through the lung bases and from the lung basesthrough the pubic symphysis with IV administration of 100 mL Isovue 370.Automated exposure control for dose reduction was used. FINDINGS: CHEST: There is no suspicious pulmonary nodule, consolidation, or pleuraleffusion. Sequela of healed granulomatous disease is again noted. The centralairways are patent. A right IJ port catheter terminates at the cavoatrial junction. There areno pathologically enlarged lymph nodes. No osteolytic or osteoblastic lesionis noted. ABDOMEN & PELVIS: The liver, gallbladder, spleen, pancreas, and adrenal glands areunremarkable. The kidneys enhance symmetrically. Mild left caliectasis or parapelviccysts are unchanged. The bladder is incompletely distended. The prostate issurgically absent. Changes of right hemicolectomy are redemonstrated. The remaining bowel isnormal in caliber without evidence of obstruction or an acute inflammatoryprocess. Significant diverticulosis is again noted. Subcentimeter right external iliac chain lymph nodes are unchanged. Thelargest again measures 9 x 7 mm and is hyperattenuating. No osteolytic orosteoblastic lesion is noted. IMPRESSION: CHEST: No evidence of intrathoracic metastatic disease. ABDOMEN/PELVIS: Stable exam including subcentimeter right external iliac chain lymphnodes. Otherwise, no evidence of metastatic disease in the abdomen or pelvis. Praneeth Fay MD IMG CT ORDERABLES Final Res ult * MAGNESIUM LEVEL (12/28/2022 9:01 AM EDT) Only the most recent of3 resultswithin the time period is included. Magnesium 2.0 1.6 - 2.4 mg/dL 12/28/2022 9:23 AM EDT [facility] Blood BLOOD SAMPLE TAKEN FROM CENTRAL LINE / Unknown Port / Unknown 12/28/2022 9:01 AM EDT 12/28/2022 9:03 AM EDT Praneeth Fay MD CHEMISTRY ORDERABLES Final Result [facility] [address] [place] [address] * IR ULTRASOUND GUIDED VASCULAR ACCESS (09/07/2022 10:44 AM EDT) Anatomical Region Laterality Modality Interventional R adiology Impressions 09/07/2022 2:02 PM EDT Successful and uncomplicated ultrasound and fluoroscopically guided chest port insertion. Port ready for immediate use. 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 Procedure performed by Dr. Cohn. Pre-procedure intravenous antibiotics administered. After establishing pulse oximetry, BP and EKG monitoring by the Radiology nurse, moderate sedation with Versed and Fentanyl was administered. Physician intra-service time was 30 minutes Ultrasound interrogation performed of the right internal jugular vein. The vein is patent and compressible. This was documented with a permanent image. Catheter was placed utilizing all elements of maximal sterile barrier technique, as well as all elements of sterile ultrasound technique. Following sterile skin preparation and local anesthesia under direct ultrasound guidance the vein was punctured. This allowed placement of a peel away sheath. Attention then turned to the upper chest wall. Using blunt and sharp dissection subcutaneous pocket and tunnel was created. A Power Port was positioned within the pocket and tubing brought through the tunnel to the venous entry site. Catheter cut to length and advanced through the peel away sheath with tip positioned at the caval atrial junction. This was documented with fluoroscopic spot film. The port pocket was closed with absorbable sutures and glue. The neck incision was closed with glue. The port was accessed and aspirated and flushed freely. A sterile dressing was applied. The patient tolerated the procedure well and left the Radiology Department in stable condition. No immediate complications incurred. FLUOROSCOPY TIME: 0.1 minutes, 0 exposures us Praneeth Fay MD IMG IR ORDERABLES Final Res ult * IR PORT PLACEMENT EQUAL OR > 5 YEARS (09/07/2022 10:44 AM EDT) Anatomical Region Laterality Modality Interventional R adiology 09/07/2022 10:4 4 AM EDT Impressions 09/07/2022 2:02 PM EDT Successful and uncomplicated ultrasound and fluoroscopically guided chest port insertion. Port ready for immediate use. 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 Procedure performed by Dr. Cohn. Pre-procedure intravenous antibiotics administered. After establishing pulse oximetry, BP and EKG monitoring by the Radiology nurse, moderate sedation with Versed and Fentanyl was administered. Physician intra-service time was 30 minutes Ultrasound interrogation performed of the right internal jugular vein. The vein is patent and compressible. This was documented with a permanent image. Catheter was placed utilizing all elements of maximal sterile barrier technique, as well as all elements of sterile ultrasound technique. Following sterile skin preparation and local anesthesia under direct ultrasound guidance the vein was punctured. This allowed placement of a peel away sheath. Attention then turned to the upper chest wall. Using blunt and sharp dissection subcutaneous pocket and tunnel was created. A Power Port was positioned within the pocket and tubing brought through the tunnel to the venous entry site. Catheter cut to length and advanced through the peel away sheath with tip positioned at the caval atrial junction. This was documented with fluoroscopic spot film. The port pocket was closed with absorbable sutures and glue. The neck incision was closed with glue. The port was accessed and aspirated and flushed freely. A sterile dressing was applied. The patient tolerated the procedure well and left the Radiology Department in stable condition. No immediate complications incurred. FLUOROSCOPY TIME: 0.1 minutes, 0 exposures us Praneeth Fay MD IMG IR ORDERABLES Final Res ult * PT / INR (09/06/2022 9:34 AM EDT) PT 11.3 10.0 - 13.1 second(s) 09/06/2022 11:19 AM EDT [facility] INR 0.97 0.86 - 1.12 (ratio) 09/06/2022 11:19 AM EDT [facility] Comment: Level of Therapy Indications Target INR Range Standard Dose Treatment and prophylaxis of venous 2.0 - 3.0 thrombosis, pulmonary embolism High Dose High risk patients with mechanical 2.5 - 3.5 heart valves Blood VENOUS BLOOD / Unknown Venipuncture / Unknown 09/06/2022 9:34 AM EDT 09/06/2022 9:34 AM EDT us Yariel Wood MD HEMATOLOGY ORDERABLES Final Resu lt [facility] [address] [facility] , [address] [place] [id number] * PHARMACOGENOMIC PANEL (09/01/2022 8:53 AM EDT) Saliva 09/01/2022 8:53 AM EDT Narrative [facility] - 09/01/2022 8:53 AM EDT You have patient [facility]) to review Praneeth Fay MD [facility] - ORDERABLES Final R esult [facility] * PATHOLOGY TISSUE ADD-ON ORDER (08/26/2022 4:32 PM EDT) Tissue 08/26/2022 4:32 PM EDT 08/26/2022 4:32 PM EDT Praneeth Fay MD PATHOLOGY ORDERABLES Final Result Performing Organization Address [facility]/ZIP [place] [address] * PET CT PSMA SKULL BASE TO MID THIGH (07/15/2022 1:39 PM EST) Anatomical Region Laterality Modality Positron Emissio n Tomography (PET) 07/15/2022 1:39 PM EST Impressions 07/15/2022 2:48 PM EST 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 Please see above detailed report. - Note: Radiology results need to be interpreted within a comprehensive clinical context. If you have questions about the radiology report, please contact the office of the ordering clinician. Reference article: [email or web address]://jnm.[email or web address]/content/[email or web address] Narrative 07/15/2022 2:[address] PSMA SKULL BASE TO MID-THIGH, 07/15/2022 1:39 PM CLINICAL HISTORY: Rising PSA. M20-Zurgvqugs neoplasm of prostate (HCC)-ICD-10-CM. COMPARISON: No comparison imaging studies. PROCEDURE COMMENTS: 18F-Pylarify 9.0 mCi via right antecubital vein was administered per protocol with dose as recorded in EPIC. CT for attenuation correction and anatomic correlation was performed. PET data acquisition was begun at approximately 60 min following injection. PET data was acquired from the midthighs to the skull base. FINDINGS: Normal intense physiologic uptake noted in the salivary glands, lacrimal glands, kidneys, ureters, and bladder, as well as moderate physiologic uptake in the liver, spleen, and bowel. Reference blood pool activity, max SUV,(1.86). Prior prostatectomy. No dominant focus of activity regional to the postsurgical prostate bed. Abnormal bilateral metastatic pelvic floridalma uptake demonstrated, greater on the right. Focal activity within left mid pelvis node, max SUV,(6.63). Small adjacent metastatic nodes within the upper/mid right hemipelvis anterior to the iliac vasculature. Adjacent max SUV values,(12.85) and (19.70). Small scattered sub-5 mm metastatic nodes suspected within the presacral region. No retroperitoneal lymphadenopathy. The lungs are clear. No intrathoracic lymphadenopathy. No dominant lung nodule or pleural effusions. No visualized bony metastatic process. Procedure Note Yassine Lucas, DO - 07/15/[address] PSMA SKULL BASE TO MID-THIGH, 07/15/2022 1:39 PM CLINICAL HISTORY: Rising PSA. H83-Kpkioiiye neoplasm of prostate (HCC)-ICD-10-CM. COMPARISON: No comparison imaging studies. PROCEDURE COMMENTS: 18F-Pylarify 9.0 mCi via right antecubital vein was administered per protocol with dose as recorded in EPIC. CT forattenuation correction and anatomic correlation was performed. PET data acquisitionwas begun at approximately 60 min following injection. PET data was acquiredfrom the midthighs to the skull base. FINDINGS: Normal intense physiologic uptake noted in the salivary glands, lacrimalglands, kidneys, ureters, and bladder, as well as moderate physiologic uptake inthe liver, spleen, and bowel. Reference blood pool activity, max SUV,(1.86). Prior prostatectomy. No dominant focus of activity regional to thepostsurgical prostate bed. Abnormal bilateral metastatic pelvic floridalma uptakedemonstrated, greater on the right. Focal activity within left mid pelvis node, max SUV,(6.63). Small adjacent metastatic nodes within the upper/mid right hemipelvis anterior to the iliac vasculature. Adjacent max SUVvalues,(12.85) and (19.70). Small scattered sub-5 mm metastatic nodes suspected withinthe presacral region. No retroperitoneal lymphadenopathy. The lungs are clear. No intrathoracic lymphadenopathy. No dominant lungnodule or pleural effusions. No visualized bony metastatic process. 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 Please see above detailed report. - Note: Radiology results need to be interpreted within a comprehensiveclinical context. If you have questions about the radiology report, please contactthe office of the ordering clinician. Reference article: [email or web address]://jnm.snmjournals.org/content/[email or web address] [email or web address] Diana Metcalf MD IMG PET ORDERABLES Final Resul t * MO US CAROTID DUPLEX BILATERAL (03/18/2022 10:58 AM EDT) Only the most recent of2 resultswithin the time period is included. Anatomical Region Laterality Modality Vascular, Head, Neck Vascular Im aging 03/18/2022 10:0 1 AM EDT Impressions 03/19/2022 4:30 PM EDT Conclusions * Right: * The MAKAYLA has a 1-39% stenosis. * The right vertebral artery is patent with antegrade flow. * Left: * The LICA has a 60-79% stenosis (low end). * The left vertebral artery is patent with antegrade flow. * There has been no significant change noted on the right side and a progression of disease on the left side since the previous study of 12/22/11. The ratios cause the higher stenosis but that is not seen on the B Mode. * [place] [facility] [place]. * previous [facility] documented results in office notes: * right ICA/CCA ratio-2.1. * left ICA/CCA ratio-2.6. * left PSV-125 cm/sec. Narrative Procedure Note Antonio Herrera MD - 03/19/2022 IMPRESSION Conclusions * Right: * The MAKAYLA has a 1-39% stenosis. * The right vertebral artery is patent with antegrade flow. * Left: * The LICA has a 60-79% stenosis (low end). * The left vertebral artery is patent with antegrade flow. * There has been no significant change noted on the right side and a progression of disease on the left side since the previous study of12/22/11. The ratios cause the higher stenosis but that is not seen on the B Mode. * [place] [facility] [place]. * previous [facility] documented results in officenotes: * right ICA/CCA ratio-2.1. * left ICA/CCA ratio-2.6. * left PSV-125 cm/sec. Kumar Wilhelm MD IMG VASCULAR ORDERABLES Final Result * GMED COLONOSCOPY (11/30/2016 7:00 AM EDT) 11/30/2016 7:00 AM EDT Impressions [facility] - 11/30/2016 7:19 AM EDT The examination was negative from a standpoint of screening. . Diverticulosis of the ascending colon, descending colon and sigmoid colon. Internal hemorrhoids. Plan: Colonoscopy in 5 years due to previous history of polyps. This section is an excerpt of the full report. Michelle Roper MD GI PROCEDURE ORDERABLES Final R esult Performing Organization Address City/State/[facility] Co de Phone Number [facility] [address] [place] [address] * CT SIMULATION FOR TREATMENT PLANNING (04/16/2015 9:55 AM EST) Anatomical Region Laterality Modality Computed Tomogra phy 04/16/2015 9:55 AM EST Impressions 04/16/2015 12:20 PM EST Impression: Study done for radiation therapy planning. Narrative 04/16/2015 12:[address] SIMULATION FOR TREATMENT PLANNING 04/16/2015 9:55 AM HISTORY: E15-Yqknbiuih neoplasm of oocatmbg-MLN-58-CM Findings: Study done for radiation therapy planning. There is contrast in the urinary bladder. Small bilateral inguinal and iliac lymph nodes are of questionable clinical significance. Prostate is not grossly enlarged. No sclerotic bony metastases. Procedure Note Yariel Wood MD - 04/16/2015 CT SIMULATION FOR TREATMENT PLANNING 04/16/2015 9:55 AM HISTORY: K08-Qraqwjbhs neoplasm of ynyrnlcu-ZJP-94-CM Findings: Study done for radiation therapy planning. There is contrast inthe urinary bladder. Small bilateral inguinal and iliac lymph nodes are of questionable clinical significance. Prostate is not grossly enlarged. No sclerotic bony metastases. Impression: Study done for radiation therapy planning. us Diana Metcalf MD IM CT ORDERABLES Final Result * SCANNED RADIOLOGY REPORT (12/22/2011 12:27 PM EDT) Anatomical Region Laterality Modality Other Narrative Transcriptions Unknown, Unknown - 12/22/2011 12:27 PM EDT us Unknown Unknown IM DIAGNOSTIC IMAGING ORDERABLE S Final Result * NM MYOCARDIAL PERFUSION SPECT STRESS AND REST (12/22/2011 11:55 AM EDT) Anatomical Region Laterality Modality Nuclear Medicine 12/22/2011 9:42 AM EDT Impressions 12/22/2011 5:01 PM EDT SPECT RESULTS Technical Quality: Technically adequate study Raw Data Analysis: No clinically relevant artifact Perfusion: Homogeneous uptake of isotope throughout the left ventricle on both stress and rest images. No evidence of myocardial ischemia or prior myocardial infarction. FUNCTION (calculated via Gated SPECT) Post Stress LV EF:66 % TID: 0.89 EDV: 99 ml (70-100 ml) ESV: 34 ml (30-50 ml) EDVI: 48 ml/m? (30-50 ml/m?) ESVI: 16 ml/m? (15-30 ml/m?) Technical Quality: Gated SPECT appears to be visually accurate LV Size & Function: Normal left ventricular size and function. LV Regional Function: No wall motion abnormalities. Right Ventricle: Normal right ventricular size and function. IMPRESSIONS No evidence of myocardial ischemia or prior myocardial infarction. Normal left ventricular size and function. No wall motion abnormalities. Narrative Procedure Note Antonio Olmstead MD - 12/22/2011 IMPRESSION SPECT RESULTS Technical Quality: Technically adequate study Raw Data Analysis: No clinically relevant artifact Perfusion: Homogeneous uptake of isotope throughout the leftventricle on both stress and rest images. No evidence of myocardial ischemia or priormyocardial infarction. FUNCTION (calculated via Gated SPECT) Post Stress LV EF:66 %TID: 0.89 EDV: 99 ml (70-100 ml) ESV: 34 ml(30-50 ml) EDVI: 48 ml/m? (30-50 ml/m?) ESVI: 16ml/m? (15-30 ml/m?) Technical Quality: Gated SPECT appears to be visually accurate LV Size & Function: Normal left ventricular size and function. LV Regional Function: No wall motion abnormalities. Right Ventricle: Normal right ventricular size and function. IMPRESSIONS No evidence of myocardial ischemia or prior myocardial infarction. Normal left ventricular size and function. No wall motion abnormalities. Ismael Collins MD [facility] [place] CARDIAC ORDERABLES Final Result * ST STRESS TEST EXERCISE (12/22/2011 10:49 AM EDT) Anatomical Region Laterality Modality Cardiac Stress T esting 12/22/2011 10:2 3 AM EDT Ismael Collins MD [facility] STRESS ORDERABLES Fin al Result * EC ECHOCARDIOGRAM COMPLETE W DOPPLER AND COLOR FLOW MAPPING (12/22/2011 8:34 AM EDT) Anatomical Region Laterality Modality Electrocardiogra phy 12/22/2011 8:09 AM EDT Impressions 12/22/2011 12:20 PM EDT FINDINGS Left Ventricle Borderline concentric left ventricular hypertrophy. Left ventricular cavity size normal. No obvious regional wall motion abnormalities. Normal left ventricular ejection fraction estimated at 50-55%. Right Ventricle Right ventricle at upper limits of normal versus mildly dilated. Right Atrium Normal right atrial size. Left Atrium Mild left atrial dilatation. LA Volume Index = 29 ml/ m squared. Mitral Valve Mitral valve thickened. Mild mitral annular calcification. No mitral stenosis or prolapse. Mild mitral regurgitation. Aortic Valve Trileaflet aortic valve. MIld thickening of the aortic valve cusps. No aortic valve stenosis or regurgitation. Tricuspid Valve Structurally normal tricuspid valve. No tricuspid stenosis or prolapse. Trace tricuspid regurgitation. Right ventricular systolic pressure estimated at 22 mmHg. Pulmonic Valve Structurally normal pulmonic valve. No pulmonic stenosis. Trivial pulmonic regurgitation. Pericardium Normal pericardium without effusion. Aorta Normal aortic root dimension. CONCLUSIONS Preserved left Ventricular systolic function. Mild mitral regurgitation. Narrative Procedure Note Jeovanny Montgomery MD - 12/22/2011 IMPRESSION FINDINGS Left Ventricle Borderline concentric left ventricular hypertrophy.Left ventricular cavity size normal. No obvious regional wall motion abnormalities. Normal left ventricularejection fraction estimated at 50- 55%. Right Ventricle Right ventricle at upper limits of normal versusmildly dilated. Right Atrium Normal right atrial size. Left Atrium Mild left atrial dilatation. LA Volume Index = 29 ml/m squared. Mitral Valve Mitral valve thickened. Mild mitral annularcalcification. No mitral stenosis or prolapse. Mild mitral regurgitation. Aortic Valve Trileaflet aortic valve. MIld thickening of theaortic valve cusps. No aortic valve stenosis or regurgitation. Tricuspid Valve Structurally normal tricuspid valve. No tricuspidstenosis or prolapse. Trace tricuspid regurgitation. Right ventricular systolic pressure estimated at 22 mmHg. Pulmonic Valve Structurally normal pulmonic valve. No pulmonicstenosis. Trivial pulmonic regurgitation. Pericardium Normal pericardium without effusion. Aorta Normal aortic root dimension. CONCLUSIONS Preserved left Ventricular systolic function. Mild mitral regurgitation. Ismael Collins MD IMG ECHO ORDERABLES Final Result Visit Diagnoses Diagnosis Start Date Chest pain Chest pain, unspecified 12/22/2011 Chest discomfort Other chest pain 12/22/2011 Dizziness Dizziness and giddiness 12/22/2011 Chest pain Chest pain, unspecified 12/22/2011 Chest discomfort Other chest pain 12/22/2011 Dizziness Dizziness and giddiness 12/22/2011 Chest pain Chest pain, unspecified 12/22/2011 Chest discomfort Other chest pain 12/22/2011 Dizziness Dizziness and giddiness 12/22/2011 Chest pain Chest pain, unspecified 12/22/2011 Chest discomfort Other chest pain 12/22/2011 Dizziness Dizziness and giddiness 12/22/2011 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) Malignant neoplasm of prostate 04/08/2015 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) Malignant neoplasm of prostate 2015 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) Malignant neoplasm of prostate 05/19/2015 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) Malignant neoplasm of prostate 05/26/2015 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) Malignant neoplasm of prostate 06/02/2015 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) Malignant neoplasm of prostate 06/16/2015 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) Malignant neoplasm of prostate 06/23/2015 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) Malignant neoplasm of prostate 07/17/2015 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) Malignant neoplasm of prostate 07/17/2015 Prostate cancer (HCC) Malignant neoplasm of prostate 07/22/2015 History of prostate cancer Personal history of malignant neoplasm of prostate 01/16/2016 Prostate cancer (HCC) Malignant neoplasm of prostate 01/16/2016 History of prostate cancer Personal history of malignant neoplasm of prostate 01/27/2016 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) Malignant neoplasm of prostate 01/29/2016 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) Malignant neoplasm of prostate 07/19/2016 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) Malignant neoplasm of prostate 07/19/2016 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) Malignant neoplasm of prostate 07/23/2016 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) Malignant neoplasm of prostate 02/28/2017 Encounter for follow-up examination after radiotherapy for malignant neoplasm 03/16/2017 Personal history of malignant neoplasm of prostate 03/16/2017 Encounter for follow-up examination after radiotherapy for malignant neoplasm 10/04/2017 Personal history of malignant neoplasm of prostate 10/04/2017 Encounter for follow-up examination after radiotherapy for malignant neoplasm 10/07/2017 Personal history of prostate cancer Personal history of malignant neoplasm of prostate 10/07/2017 Encounter for follow-up examination after radiotherapy for malignant neoplasm 04/10/2018 Personal history of prostate cancer Personal history of malignant neoplasm of prostate 04/10/2018 Encounter for follow-up examination after radiotherapy for malignant neoplasm 04/12/2018 Personal history of prostate cancer Personal history of malignant neoplasm of prostate 04/12/2018 Encounter for follow-up examination after radiotherapy for malignant neoplasm 10/06/2018 Personal history of prostate cancer Personal history of malignant neoplasm of prostate 10/06/2018 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) Malignant neoplasm of prostate 10/10/2018 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) Malignant neoplasm of prostate 04/13/2019 Encounter for follow-up examination after radiotherapy for malignant neoplasm 04/17/2019 Personal history of prostate cancer Personal history of malignant neoplasm of prostate 04/17/2019 Rising PSA following treatment for malignant neoplasm of prostate 04/17/2019 Encounter for follow-up examination after radiotherapy for malignant neoplasm 10/19/2019 Personal history of prostate cancer Personal history of malignant neoplasm of prostate 10/19/2019 Rising PSA following treatment for malignant neoplasm of prostate 10/19/2019 Prostate cancer (HCC) Malignant neoplasm of prostate 10/25/2019 Prostate cancer (HCC) Malignant neoplasm of prostate 05/06/2020 Prostate cancer (HCC) Malignant neoplasm of prostate 05/08/2020 Rising PSA level Elevated prostate specific antigen (PSA) 05/08/2020 Prostate cancer (HCC) Malignant neoplasm of prostate 11/12/2020 Rising PSA level Elevated prostate specific antigen (PSA) 11/12/2020 Prostate cancer (HCC) Malignant neoplasm of prostate 11/26/2020 Asymptomatic bilateral carotid artery stenosis Occlusion and stenosis of multiple and bilateral precerebral arteries without mention of cerebral infarction 03/12/2021 Essential hypertension Unspecified essential hypertension 03/12/2021 Type 2 diabetes mellitus with other circulatory complication, 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/2021 Personal history of prostate cancer Personal history of malignant neoplasm of prostate 03/12/2021 Stenosis of right subclavian artery Atherosclerosis of other specified arteries 03/12/2021 Prostate cancer (HCC) Malignant neoplasm of prostate 06/29/2021 Encounter for follow-up examination after radiotherapy for malignant neoplasm 07/03/2021 Personal history of prostate cancer Personal history of malignant neoplasm of prostate 07/03/2021 Lumbar radiculopathy Thoracic or lumbosacral neuritis or radiculitis, unspecified 10/28/2021 Lumbar radiculopathy Thoracic or lumbosacral neuritis or radiculitis, unspecified 11/03/2021 Lumbar radiculopathy Thoracic or lumbosacral neuritis or radiculitis, unspecified 11/13/2021 Encounter for follow-up examination after radiotherapy for malignant neoplasm 01/04/2022 Personal history of prostate cancer Personal history of malignant neoplasm of prostate 01/04/2022 Prostate cancer (HCC) Malignant neoplasm of prostate 01/06/2022 Asymptomatic bilateral carotid artery stenosis Occlusion and stenosis of multiple and bilateral precerebral arteries without mention of cerebral infarction 03/18/2022 Essential hypertension Unspecified essential hypertension 03/18/2022 Type 2 diabetes mellitus with other circulatory complication, without long-term current use of insulin (HCC) 03/18/2022 Asymptomatic bilateral carotid artery stenosis Occlusion and stenosis of multiple and bilateral precerebral arteries without mention of cerebral infarction 03/18/2022 Prostate cancer (HCC) Malignant neoplasm of prostate 07/15/2022 Prostate cancer (HCC) Malignant neoplasm of prostate 07/15/2022 Prostate cancer (HCC) Malignant neoplasm of prostate 07/19/2022 Rising PSA level Elevated prostate specific antigen (PSA) 07/19/2022 Prostate cancer (HCC) Malignant neoplasm of prostate 08/11/2022 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/11/2022 Prostate cancer (HCC) Malignant neoplasm of prostate 08/12/2022 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/12/2022 Prostate cancer (HCC) Malignant neoplasm of prostate 08/19/2022 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/19/2022 Prostate cancer (HCC) Malignant neoplasm of prostate 08/20/2022 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/20/2022 Asymptomatic bilateral carotid artery stenosis Occlusion and stenosis of multiple and bilateral precerebral arteries without mention of cerebral infarction 08/23/2022 Prostate cancer (HCC) Malignant neoplasm of prostate 08/23/2022 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/24/2022 Prostate cancer (HCC) Malignant neoplasm of prostate 08/24/2022 Poor venous access Other specified circulatory system disorders 08/24/2022 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/24/2022 Prostate cancer (HCC) Malignant neoplasm of prostate 08/24/2022 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) 08/24/2022 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/26/2022 Prostate cancer (HCC) Malignant neoplasm of prostate 08/26/2022 Neoplasm Neoplasm of unspecified nature, site unspecified 08/26/2022 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/27/2022 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/27/2022 Prostate cancer (HCC) Malignant neoplasm of prostate 08/27/2022 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) 08/31/2022 Prostate cancer (HCC) Malignant neoplasm of prostate 08/31/2022 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 09/06/2022 Prostate cancer (HCC) Malignant neoplasm of prostate 09/06/2022 Neoplasm Neoplasm of unspecified nature, site unspecified 09/06/2022 Neoplasm Neoplasm of unspecified nature, site unspecified 09/07/2022 Prostate cancer (HCC) Malignant neoplasm of prostate 09/07/2022 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 09/07/2022 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 09/08/2022 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 09/08/2022 Prostate cancer (HCC) Malignant neoplasm of prostate 09/09/2022 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 09/14/2022 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 09/14/2022 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 09/14/2022 Encounter for antineoplastic chemotherapy 09/14/2022 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) 09/14/2022 Prostate cancer (HCC) Malignant neoplasm of prostate 09/14/2022 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 09/21/2022 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) 09/21/2022 Prostate cancer (HCC) Malignant neoplasm of prostate 09/21/2022 Encounter for antineoplastic chemotherapy 09/21/2022 CINV (chemotherapy-induced nausea and vomiting) Nausea with vomiting 09/21/2022 Chemotherapy induced diarrhea Diarrhea 09/21/2022 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 09/28/2022 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 10/05/2022 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 10/05/2022 Prostate cancer (HCC) Malignant neoplasm of prostate 10/05/2022 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) 10/05/2022 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 10/05/2022 Encounter for antineoplastic chemotherapy 10/05/2022 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 10/19/2022 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 10/26/2022 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) 10/26/2022 Prostate cancer (HCC) Malignant neoplasm of prostate 10/26/2022 Encounter for antineoplastic chemotherapy 10/26/2022 Maculopapular rash Rash and other nonspecific skin eruption 10/26/2022 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 10/26/2022 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 10/26/2022 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 11/04/2022 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 11/16/2022 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 11/16/2022 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) 11/16/2022 Prostate cancer (HCC) Malignant neoplasm of prostate 11/16/2022 Encounter for antineoplastic chemotherapy 11/16/2022 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 11/16/2022 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 11/16/2022 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 11/25/2022 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 12/22/2022 Prostate cancer (HCC) Malignant neoplasm of prostate 12/22/2022 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 12/27/2022 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 12/28/2022 Prostate cancer (HCC) Malignant neoplasm of prostate 12/28/2022 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 12/28/2022 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) 12/28/2022 Prostate cancer (HCC) Malignant neoplasm of prostate 12/28/2022 Prostate cancer (HCC) Malignant neoplasm of prostate 02/04/2023 Prostate cancer (HCC) Malignant neoplasm of prostate 02/07/2023 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 02/07/2023 Prostate cancer (HCC) Malignant neoplasm of prostate 02/08/2023 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 02/08/2023 History of colon cancer Personal history of malignant neoplasm of large intestine 02/08/2023 Prostate cancer (HCC) Malignant neoplasm of prostate 02/08/2023 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) 02/08/2023 Prostate cancer (HCC) Malignant neoplasm of prostate 03/14/2023 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 03/14/2023 History of colon cancer Personal history of malignant neoplasm of large intestine 05/10/2023 Prostate cancer (HCC) Malignant neoplasm of prostate 05/10/2023 Prostate cancer (HCC) Malignant neoplasm of prostate 05/10/2023 History of colon cancer Personal history of malignant neoplasm of large intestine 05/10/2023 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) 05/10/2023 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 05/10/2023 Port-A-Cath in place Other postprocedural status 05/10/2023 History of colon cancer Personal history of malignant neoplasm of large intestine 07/18/2023 Prostate cancer (HCC) Malignant neoplasm of prostate 07/18/2023 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) 07/18/2023 Prostate cancer (HCC) Malignant neoplasm of prostate 07/19/2023 History of colon cancer Personal history of malignant neoplasm of large intestine 07/19/2023 Prostate cancer (HCC) Malignant neoplasm of prostate 07/19/2023 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) 07/19/2023 History of colon cancer Personal history of malignant neoplasm of large intestine 07/19/2023 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 07/22/2023 History of colon resection Other postprocedural status 07/22/2023 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 09/05/2023 History of colon resection Other postprocedural status 09/05/2023 Prostate cancer (HCC) Malignant neoplasm of prostate 09/27/2023 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 09/27/2023 Prostate cancer (HCC) Malignant neoplasm of prostate 10/07/2023 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) 10/07/2023 Prostate cancer (HCC) Malignant neoplasm of prostate 10/07/2023 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) 10/07/2023 History of colon cancer Personal history of malignant neoplasm of large intestine 10/07/2023 History of chemotherapy Personal history of antineoplastic chemotherapy 10/07/2023 Port-A-Cath in place Other postprocedural status 10/07/2023 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) 02/01/2024 History of colon cancer Personal history of malignant neoplasm of large intestine 02/01/2024 Abnormal finding on imaging Other nonspecific (abnormal) findings on radiological and other examinations of body structure 02/06/2024 Screening for colon cancer Special screening for malignant neoplasms, colon 02/06/2024 Prostate cancer (HCC) Malignant neoplasm of prostate 02/06/2024 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) 02/06/2024 History of colon cancer Personal history of malignant neoplasm of large intestine 02/06/2024 Prostate cancer (HCC) Malignant neoplasm of prostate 02/06/2024 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) 02/06/2024 History of colon cancer Personal history of malignant neoplasm of large intestine 02/06/2024 History of chemotherapy Personal history of antineoplastic chemotherapy 02/06/2024 Abnormal finding on imaging Other nonspecific (abnormal) findings on radiological and other examinations of body structure 03/15/2024 Screening for colon cancer Special screening for malignant neoplasms, colon 03/15/2024 Prostate cancer (HCC) Malignant neoplasm of prostate 03/27/2024 History of colon cancer Personal history of malignant neoplasm of large intestine 03/27/2024 Prostate cancer (HCC) Malignant neoplasm of prostate 03/27/2024 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) 03/27/2024 History of colon cancer Personal history of malignant neoplasm of large intestine 03/27/2024 History of chemotherapy Personal history of antineoplastic chemotherapy 03/27/2024 Prostate cancer (HCC) Malignant neoplasm of prostate 03/29/2024 Encounter for genetic screening Other genetic screening 04/17/2024 Prostate cancer (HCC) Malignant neoplasm of prostate 04/17/2024 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) 07/13/2024 History of colon cancer Personal history of malignant neoplasm of large intestine 07/13/2024 Prostate cancer (HCC) Malignant neoplasm of prostate 07/16/2024 History of colon cancer Personal history of malignant neoplasm of large intestine 07/16/2024 Encounter for genetic screening Other genetic screening 07/17/2024 Prostate cancer (HCC) Malignant neoplasm of prostate 07/17/2024 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) 07/17/2024 History of colon cancer Personal history of malignant neoplasm of large intestine 07/17/2024 Prostate cancer (HCC) Malignant neoplasm of prostate 07/17/2024 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) 07/17/2024 History of colon cancer Personal history of malignant neoplasm of large intestine 07/17/2024 History of chemotherapy Personal history of antineoplastic chemotherapy 07/17/2024 Prostate cancer (HCC) Malignant neoplasm of prostate 10/16/2024 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) 10/16/2024 History of colon cancer Personal history of malignant neoplasm of large intestine 10/16/2024 Prostate cancer (HCC) Malignant neoplasm of prostate 10/18/2024 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) 10/18/2024 History of colon cancer Personal history of malignant neoplasm of large intestine 10/18/2024 Prostate cancer (HCC) Malignant neoplasm of prostate 10/23/2024 Prostate cancer (HCC) Malignant neoplasm of prostate 10/23/2024 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) 10/23/2024 History of colon cancer Personal history of malignant neoplasm of large intestine 10/23/2024 Prostate cancer (HCC) Malignant neoplasm of prostate 10/23/2024 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) 10/23/2024 History of colon cancer Personal history of malignant neoplasm of large intestine 10/23/2024 History of chemotherapy Personal history of antineoplastic chemotherapy 10/23/2024 Care Teams Manager Architecture Relationship Specialty Start Date End Date Jim Collins MD [address] [facility] [address] [place] [address] PCP - General Psychiatry & Neurology-Neurology 12/21/11 Diana Metcalf MD [address] [place] [address] [address] [place] [address] Consulting Physician Radiology-Radiation Oncology 04/02/15 Praneeth Fay MD [address] [place] [address] Medical Oncologist Internal Medicine-Hematology and Oncology 09/14/22
--- OUTSIDE RECORDS SUMMARY | 2024-11-22 11:45 | XMS_ITS | Clinical Summary ---
Author Organization [employer] ([place], [place], [place], [place]) Address [address] [place] [address] Care Team Providers Care Seaport Planning Manager Name Role Phone Unavailable Primary Care Provider Unavailabl e Allergies No known active allergies Medications aspirin 81 MG EC tablet Take 81 mg by mouth daily . Active losartan-hydroch lorothiazide (HYZAAR) 100-12.5 mg per tablet Take 1 tablet by mouth daily. Active rosuvastatin (CRESTOR) 5 MG tablet Take 5 mg by mouth daily . Active metFORMIN (GLUCOPHAGE-XR) 500 MG 24 hr tablet Take 500 mg by mouth daily. 05/06/2022 Active coenzyme Q10 200 mg capsule Take 400 mg by mouth daily . Active metoprolol succinate (TOPROL-XL) 25 MG 24 hr tablet Take 25 mg by mouth daily. Active Active Problems Problem Noted Date Diagnosed Date Small bowel obstruction 07/06/2022 HTN (hypertension) 07/06/2022 DM (diabetes mellitus) 07/06/2022 HLD (hyperlipidemia) 07/06/2022 Suspected malignant neoplasm of gastrointestinal tract 07/06/2022 SOB (shortness of breath) 07/05/[address] of the abdomen 07/05/2022 Overview (07/06/2022): Added automatically from request for surgery [id number] Resolved Problems Problem Noted Date Diagnosed Date Resolved Date GI malignancy 07/06/2022 07/06/2022 Social History Tobacco Use Types Packs/Day Years Used Date Smoking Tobacco: Never Smokeless Tobacco: Never Alcohol Use Standard Drinks/Week Comments Yes 0 (1 standard drink = 0.6 oz pur e alcohol) weekly PRAPARE - Transportation Answer Date Re corded In the past 12 months, has l ack of transportation kept you from medical appointments or from getting medications? No 07/05/2022 Lack of Transportation (Non-Medical) Not on file 07/05/2022 Food Insecurity Answer Date Recorded Food run out past 12 months Not on file 05/23 Food did not last past 12 months Not on file 06/05/2023 Employment Answer Date Recorded Help finding and keeping a job Not on file 0 06/05/2023 Family and Community Support Answer Kashif e Recorded Help with Day to Day Activities Not on file 06/05/2023 Feeling Lonely or Isolated Not on file 06/05 Educational Attainment Answer Date Cesar rded Speak language other than Lebanese at home Not on file 06/05/2023 Want help with school or training Not on file 06/05/2023 Substance Use Answer Date Recorded Used prescription meds for non-medical reasons N ot on file 06/05/2023 Used illegal drugs past 12 months Not on file 06/05/2023 Sex and Gender Information Value Date Recorded Sex Assigned at Not on file Legal Sex Male 6:34 PM CDT Gender Identity Not on file Sexual Orientation Not on file Last Filed Vital Signs Vital Sign Reading Time Taken Comments Blood Pressure 113/69 07/08/2022 2:25 PM EST Pulse 72 07/08/2022 2:25 PM EST Temperature 36.8 C (98.2 F) 07/08/2022 2:25 PM EST Respiratory Rate 16 07/08/2022 2:25 PM EST Oxygen Saturation 99% 07/08/2022 2:25 PM EST Inhaled Oxygen Concentration - - Weight 83 kg (183 lb) 07/05/2022 7:49 PM EST Height 172.7 cm (5' 8 ) 07/05/2022 7:49 PM EST Body Mass Index 27.83 07/05/2022 7:49 PM EST Plan of Treatment Health Maintenance Due Date Last Done Comments Medicare Initial AWV G0438 CT Colonography 1950 Diabetic Kidney Health Evalu ation (KED) 1950 FOBT/FIT 1950 Fit-DNA (Cologuard) 1950 Sigmoidoscopy 1950 Diabetic Eye Exam 1960 Depression Screening (12+) 1962 Hepatitis C Screening 1968 Shingles Vaccine (Zoster) (1 of 2) 2000 Hemoglobin A1C 01/03/2023 07/06/2022 Tobacco Cessation Counseling and Screening (12+) 07/05/2023 07/05/2022 COVID-19 VACCINE (5 - 2023-2 5 season) 2024 09/28/2021, 03/16/2021, 06/24/2020, Additional history exists Falls Risk Screening 05/23/2024 Influenza Vaccine (Season Ended) 2025 03/22/2022, 04/06/2021, 02/20/2020 Respiratory Syncytial Virus (RSV) Adult or (1 - 1-dose 75+ series) 2025 DTAP/TDAP/TD VACCINES (3 - T d or Tdap) 07/23/2027 07/22/2017, 07/26/1996 Colonoscopy 03/15/2034 03/15/2024, 07/07/2022 Colorectal Cancer Screening 03/15/2034 Pneumococcal 50+ years Completed , 10/15/2016, 02/20/2015 Procedures Procedure Name Priority Date/Time Associated Diagnosis Comments HEMOGLOBIN A1C Routine 07/06/2022 6:58 AM EST from Last 3 Months or Most Recently Relevant to Health Maintenance Results * Hemoglobin A1c (07/06/2022 6:58 AM EST) Hemoglobin A1C 6.7 % 07/06/2022 11:49 AM EST [facility] Comment: Hemoglobin A1C levels are related to mean glucose during the preceding 2-3 months. Less than 7% demonstrates glycemic control in diabetic patients. Hemoglobin AlC % Suggested Diagnosis > or = 6.5 Diabetic 5.7 - 6.4 Prediabetic <5.7 Non-diabetic eAVG Glucose 145.59 mg/dL 07/06/2022 11:49 AM EST [facility] Blood Venipuncture / Unknown 07/06/2022 6:58 AM EST 07/06/2022 7:05 AM EST Hank Kirk PA-C LAB BLOOD ORDERABLES Final Result [facility] [address] [place] [address], [facility] [phone] from Last 3 Months or Most Recently Relevant to Health Maintenance Insurance [employer] MEDICARE PPO Advance Directives For more information, please contact: [phone] * Full Code (Latest Code Status on File) Date Activated Date Inactivated Comments 07/05/2022 7:59 PM 07/08/2022 6:39 PM
--- OUTSIDE RECORDS SUMMARY | 2024-11-22 11:45 | XMS_ITS ---
Author Organization [facility] Address 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 This can lead to higher drug levels of medications impacted by CYP2B6 such as efavirenz and sertraline. See Pharmacogenomics profile in Miscellaneous Reports tab (Chart Review > Misc Reports). [id number] ultrarapid metabolizer 08/31/2022 Overview (08/31/2022): [id number] PROB: Patient is predicted to have PNS0P24 Ultra-rapid Metabolizer activity (AEC5J33 *17/*17), and therefore, patient is predicted to have increased CBZ7Q15 metabolism of medications impacted by LJT6Y32 such as SSRI's (citalopram, escitalopram and sertraline), [...] prostatectomy and pelvic radiation 10 years ago Current Treatment and Therapy Plans ONC leuprolide (22.5) + abiraterone (1000) + prednisone (5 QD)* Plan Start Date: 01/10/2023 Plan Provider:Praneeth Fay MD Linked Problems Prostate cancer (HCC) Treatment Medications Current Day (Day 1 , Cycle 0 - Planned for 01/10/2023) Next Day (Day 1, Cycle 1 - Planned for 01/11/2023) No medications scheduled. No medications schedul ed. No medications scheduled. ONCSEH PORT/PICC FLUSH* Plan Start Date:12/28/2022 Linked Problems Prostate cancer (HCC) Treatment Medications No medications scheduled. Past Treatment and Therapy Plans ONCOLOGY TREATMENT Plan Name Start Date Discontinue Date Treatment Medications Discontinue Reason Plan Provider Cycles ONC CapeOx (850/100) Q21D x 4 09/14/2022 12/28/2022 oxaliplatin (ELOXATIN) chemo infusion Therapy Complete Praneeth Fay MD 4 of 4 cycles started
--- OUTSIDE RECORDS SUMMARY | 2024-11-22 11:45 | XMS_ITS | Referral Summary ---
Author Organization [employer] ([place], [place], [place], [place]) Address [address] [place] [address] Care Team Providers Care Drywall Worker Name Role Phone Unavailable Primary Care Provider [...] (07/06/2022): Added automatically from request for surgery [id number] Resolved Problems Problem Noted Date Diagnosed Date [...] Date Cesar rded Speak language other than Australian at home Not on file 06/05/2023 Want [...] 07/05/2022 7:49 PM EST Plan of Treatment Not on file Procedures Procedure Name Priority Date/Time Associated Diagnosis Comments HEMOGLOBIN A1C Routine 07/06/2022 6:58 AM EST from Last 3 Months or Most Recently Relevant to Health Maintenance Results * Hemoglobin A1c (07/06/2022 6:58 AM EST) Hemoglobin A1C 6.7 % 07/06/2022 11:49 AM EST [facility] Comment: Hemoglobin A1C levels are related to mean glucose during the preceding 2-3 months. Less than 7% demonstrates glycemic control in diabetic patients. Hemoglobin AlC % Suggested Diagnosis > or = 6.5 Diabetic 5.7 - 6.4 Prediabetic <5.7 Non-diabetic eAVG Glucose 145.59 mg/dL 07/06/2022 11:49 AM EST [facility] Blood Venipuncture / Unknown 07/06/2022 6:58 AM EST 07/06/2022 7:05 AM EST us Hank Kirk PA-C LAB BLOOD ORDERABLES Final Result [facility] [address] [phone] from Last 3 Months or Most Recently Relevant to Health Maintenance Insurance [facility] MEDICARE PPO Advance Directives For more information, please contact: [phone] * Full Code (Latest Code Status on File) Date Activated Date Inactivated Comments 07/05/2022 7:59 PM 07/08/2022 6:39 PM
--- OUTSIDE RECORDS SUMMARY | 2024-11-22 11:45 | XMS_ITS | Clinical Summary ---
Author Organization [facility] Address [facility] [place] [address] Care Team Providers Care Automobile Accessories Installer Name Role Phone Pcp, No Primary Care Provider [phone] Source Comments This information has been disclosed to you from confidential records protectedfrom disclosure by state law. You shall make no further disclosure of thisinformation without the specific, written, and informed release of theindividual to whom it pertains, or as otherwise permitted by law. A generalauthorization for the release of medical or other information is not sufficientfor the purposes of therelease of HIV test results or diagnoses. [id number] Allergies No known active allergies Medications lisinopril (PRINIVIL,ZESTRI L) 10 MG tablet Take 10 mg by mouth daily. Active Active Problems No known active problems Family History Medical History Relation Comments Melanoma Neg Hx Social History Tobacco Use Types Packs/Day Years Used Date Smoking Tobacco: Never Alcohol Use Standard Drinks/Week Comments Yes 0 (1 standard drink = 0.6 oz pur e alcohol) Sex and Gender Information Value Date Recorded Sex Assigned at Not on file Legal Sex Male 11:16 AM EDT Gender Identity Not on file Sexual Orientation Not on file Plan of Treatment Not on file Care Teams Automobile Accessories Installer Relationship Specialty Start Date End Date Pcp, No No Address PCP - General 02/16/13
--- OUTSIDE RECORDS SUMMARY | 2024-11-22 11:46 | XMS_ITS | Encounter Summary ---
Author Organization [place] [address] Care Team Providers Care Pharmacy Laboratory Technician Name Role Phone Jim Collins MD Primary Care Provider [phone] Diana Metcalf MD Unavailable [phone] Praneeth Fay MD Unavailable [phone] Reason for Visit * Reason Onset Date Comments Medication Refill 10/23/2024 Encounter Details Date Type Department Care Team (Late st Contact Info) Description 10/23/2024 Refill [facility] [place], [place] [id number] Praneeth Fay MD [address] [place] [address] [id number] Medication Refill Social History Tobacco Use Types Packs/Day Years [...] 10:00 AM EDT Pascual Leblanc, VERNON * [place] Suicide Severity Rating Scale (Q shift for moderate and high) Question Answer Date of Assessment Author 1. In the past month, have y ou wished you were or wished you could go to sleep and not wake up? 0 10/23/2024 10:00 AM EDT Teresita Leblanc, WHIP OPERATOR 2. In the past month, have y ou actually had any thoughts of killing yourself? (If no, skip to question 6) 0 10/23/2024 10:00 AM ED T Regina Leblanc VERNON 6. Have you ever done anythi ng, started to do anything, or prepared to do anything to end your life? 0 10/23/2024 10:00 AM EDT Regina Gomez VERNON documented as of this encounter Ordered Prescriptions Prescription Sig Dispense Quantity Refills Last Filled Start Date End Date lidocaine-prilocai ne (EMLA) Top CreamIndications:P rostate cancer (HCC) Apply one nickel sized glob over port approx 30 minutes before appt. DO NOT RUB IN. Cover with plastic wrap 30 g 2 10/23/2024 documented in this encounter Miscellaneous Notes * Telephone Encounter - Rowena Scott RN - 10/23/2024 10:40 AM EDT EMLA refill. Refill is appropriate. documented in this encounter Plan of Treatment Upcoming Encounters Date Type Department Care Team (Late st Contact Info) Description 01/28/2025 9:00 AM EDT Appointment [facility] [place] [address] Praneeth Fay MD [address] [facility] [place] [address] 01/29/2025 10:00 AM EDT Appointment [facility] [place] [address] 01/29/2025 10:40 AM EDT [facility]ointment [facility] [place] [address] Praneeth Fay MD [address] [facility] [address] documented as of this encounter Visit Diagnoses Diagnosis Prostate cancer (HCC)- Primary Malignant neoplasm of prostate documented in this encounter Additional Health Concerns Assessment Noted Time A fall risk assessment has been complete d for the patient 03/18/2022 10:38 AM EDT documented as of this encounter Care Teams Pharmacy Laboratory Technician Relationship Specialty Start Date End Date Jim Collins MD [address] [facility] [address] [place] [phone] PCP - General Psychiatry & Neurology-Neurology 12/21/11 Diana Metcalf MD [address] [facility] [address] [place], [place] [id number] Consulting Physician Radiology-Radiation Oncology 04/02/15 Praneeth Fay MD [address] [facility] [place] [address] Medical Oncologist Internal Medicine-Hematology and Oncology 09/14/22 documented as of this encounter
--- OUTSIDE RECORDS SUMMARY | 2024-11-22 11:46 | XMS_ITS | Encounter Summary ---
Author Organization [place] [address] Care Team Providers Care Chief Green Officer Name Role Phone Jim Collins MD Primary Care Provider [phone] Diana Metcalf MD Unavailable [phone] Dania Zuniga RN Unavailable [phone] Praneeth Fay MD Unavailable [phone] Encounter Details Date Type Department Care Team (Late st Contact Info) Description 11/30/2016 Orders Only SEP Gastro CV [address] [facility] Building [address] [place] [phone] Michelle Roper MD Social History Tobacco Use Types Packs/Day Years Used Date Smoking Tobacco: Never Smokeless Tobacco: Never Alcohol Use Standard Drinks/Week Comments Yes 15 (1 standard drink = 0.6 oz pu re alcohol) Sexually Active Control Partners Comments Yes Female Sex and Gender Information Value Date Recorded Sex Assigned at Not on file Legal Sex Male 12:28 AM EDT Gender Identity Not on file Sexual Orientation Not on file documented as of this encounter Plan of Treatment Upcoming Encounters Date Type Department Care Team (Late Contact Info) Description 01/28/2025 9:00 AM EDT Appointment [facility] [place] [address] Praneeth Fay MD [address] [place] [address] 01/29/2025 10:00 AM EDT Appointment [facility] [place], [place] [id number] 01/29/2025 10:40 AM EDT [facility]ointment [facility] [place] [address] Praneeth Fay MD [address] [place] [address] documented as of this encounter Procedures Procedure Name Priority Date/Time Associated Diagnosis Comments GMED COLONOSCOPY Routine 11/30/2016 7:00 AM EDT documented in this encounter Results * GMED COLONOSCOPY (11/30/2016 7:00 AM EDT) 11/30/2016 7:00 AM EDT Impressions [facility] - 11/30/2016 7:19 AM EDT The examination was negative from a standpoint of screening. . Diverticulosis of the ascending colon, descending colon and sigmoid colon. Internal hemorrhoids. Plan: Colonoscopy in 5 years due to previous history of polyps. This section is an excerpt of the full report. us Michelle Roper MD GI PROCEDURE ORDERABLES Final R esult Performing Organization Address City/State/[facility] Co de Phone Number [facility] [address] [place] [address] documented in this encounter Visit Diagnoses Not on filedocumented in this encounter Care Teams Chief Green Officer Relationship Specialty Start Date End Date Jim Collins MD [address] [place] [address] [address] [place] [phone] PCP - General Psychiatry & Neurology-Neurology 12/21/11 Diana Metcalf MD [address] [facility] [facility] [place] [address] Consulting Physician Radiology-Radiation Oncology 04/02/15 Dania Zuniga, RN Oncology Nurse Navigator 08/24/22 02/15/23 Praneeth Fay MD [address] [place] [address] Medical Oncologist Internal Medicine-Hematology and Oncology 09/14/22 documented as of this encounter
--- OUTSIDE RECORDS SUMMARY | 2024-11-22 11:46 | XMS_ITS | Encounter Summary ---
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 In the past month, have y ou wished you were or wished you could go to sleep and not wake up? 0 10/23/2024 10:00 AM EDT Teresita Leblanc, MICROFILM MOUNTER 2. In the past month, have y ou actually had any thoughts of killing yourself? (If no, skip to question 6) 0 10/23/2024 10:00 AM ED T Regina LeblancVERNON 6. Have you ever done anythi ng, started to do anything, or prepared to do anything to end your life? 0 10/23/2024 10:00 AM EDT Terrell mckeon ReginaVERNON documented as of this encounter Plan of Treatment Upcoming Encounters Date Type Department Care Team (Late st Contact Info) Description 01/28/2025 9:00 AM EDT Appointment [facility] [place] [address] Praneeth Fay MD [address] [place] [address] 01/29/2025 10:00 AM EDT Appointment [facility] [place], [place] [id number] 01/29/2025 10:40 AM EDT [facility]ment [facility] [place] [address] Praneeth Fay MD [address] [place] [address] [place], [place] [id number] documented as of this encounter Procedures Procedure Name Priority Date/Time Associated Diagnosis Comments CBC WITH DIFF STAT 10/18/2024 8:28 AM EDT Prostate cancer (HCC) 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) History of colon cancer PROSTATE SPECIFIC ANTIGEN (TUMOR MARKER) STAT 10/18/2024 8:28 AM EDT Prostate cancer (HCC) 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) History of colon cancer CARCINOEMBRYONIC ANTIGEN STAT 025 8:28 AM EDT Prostate cancer (HCC) 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) History of colon cancer COMPREHENSIVE METABOLIC PANEL STAT 10/18/2024 8:28 AM EDT Prostate cancer (HCC) 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) History of colon cancer documented in this encounter Results * CARCINOEMBRYONIC ANTIGEN (10/18/2024 8:28 AM EDT) CEA 4.24 ng/mL 10/18/2024 12:18 PM EDT [facility] Comment: Non-Smokers: <= 5.0 ng/mL Smokers: <= 10.0 ng/mL [employer] uses the [employer] Contractor CEA assay, which is intended to be [...] 8:28 AM EDT us Praneeth Fay MD CHEMISTRY ORDERABLES Final Result [facility] [address] [place] [address] , [place] [address] * (ABNORMAL) PROSTATE SPECIFIC ANTIGEN (TUMOR MARKER) (10/18/2024 8:28 AM EDT) Total Psa 6.52(H) <=4.00 ng/mL 10/18/2024 11:28 AM EDT [facility] Blood VENOUS BLOOD / Unknown Venipuncture / Unknown 10/18/2024 8:28 AM EDT 10/18/2024 8:28 AM EDT Narrative [facility] - 10/18/2024 11:28 AM EDT The [...] hyperplasia or inflammatory conditions of the prostate. us Praneeth Fay MD CHEMISTRY ORDERABLES Final Result [facility] [address] [facility] , [address] [place] [id number] * (ABNORMAL) COMPREHENSIVE METABOLIC PANEL (10/18/2024 8:28 AM EDT) Sodium 139 136 - 145 mmol/L 10/18/2024 11:23 AM EDT [facility] Potassium 4.1 3.5 - 5.0 mmol/L 10/18/2024 11:23 AM EDT [facility] Chloride 98 98 - 107 mmol/L 10/18/2024 11:23 AM EDT [facility] Total CO2 32(H) 22 - 29 mmol/L 10/18/2024 11:23 AM EDT [facility] Anion Gap 9 7 - 16 mmol/L 10/18/2024 11:23 AM EDT [facility] Calcium 9.9 8.8 - 10.4 mg/dL 10/18/2024 11:23 AM EDT [facility] Glucose Lvl 171(H) 70 - 99 mg/dL 10/18/2024 11:23 AM EDT [facility] BUN 18 8 - 23 mg/dL 10/18/2024 11:23 AM EDT [facility] Creatinine 0.66(L) 0.67 - 1.30 mg/dL 10/18/2024 11:23 AM EDT [facility] Albumin 4.4 3.2 - 4.6 gm/dL 10/18/2024 11:23 AM EDT [facility] Total Protein 7.3 6.4 - 8.3 gm/dL 10/18/2024 11:23 AM EDT [facility] Bili Total 0.4 0.2 - 1.4 mg/dL 10/18/2024 11:23 AM EDT [facility] ALT 18 <=41 U/L 10/18/2024 11:23 AM EDT [facility] AST 10 <=40 U/L 10/18/2024 11:23 AM EDT [facility] Alk Phos 83 40 - 129 U/L 10/18/2024 11:23 AM EDT [facility] eGFR (CKD-EPIcr 2020) 98 >=60 mL/min/1.7 3 m2 10/18/2024 11:23 AM EDT [facility] Comment:Estimated GFR was ca lculated using the CKD-EPIcr (2020) equation refit without race. The equation is recommended by the National Kidney Foundation - [place] [employer] of Nephrology Task Force. Blood VENOUS BLOOD / Unknown Venipuncture / Unknown 10/18/2024 8:28 AM EDT 10/18/2024 8:28 AM EDT us Praneeth Fay MD CHEMISTRY ORDERABLES Final Result [facility] [address] [facility] , [place] [address] * (ABNORMAL) CBC WITH DIFF (10/18/2024 8:28 AM EDT) WBC 5.6 3.7 - 10.3 x10(3)/mcL 10/18/2024 11:02 AM EDT [facility] RBC 5.36 4.60 - 6.10 x10(6)/mcL 10/18/2024 11:02 AM EDT [facility] Hgb 16.3 13.7 - 17.5 g/dL 10/18/2024 11:02 AM EDT [facility] Hct 51.0 40.0 - 51.0 % 10/18/2024 11:02 AM EDT [facility] MCV 95.1 80.0 - 100.0 fL 10/18/2024 11:02 AM EDT [facility] MCH 30.4 26.0 - 34.0 pg 10/18/2024 11:02 AM EDT [facility] MCHC 32.0 30.7 - 35.5 g/dL 10/18/2024 11:02 AM EDT [facility] RDW 12.0 <=14.9 % 10/18/2024 11:02 AM EDT [facility] Platelet 240 155 - 369 x10(3)/mcL 10/18/2024 11:02 AM EDT [facility] MPV 9.6 8.8 - 12.5 fL 10/18/2024 11:02 AM EDT [facility] Neut Percent 65.6 % 10/18/2024 11:02 AM EDT [facility] Comment:Neutrophils equals s egs plus bands Imm Gran% 0.7 % 10/18/2024 11:02 AM EDT [facility] Comment:Automated count of m etamyelocytes, myelocytes and promyelocytes. Lymph Percent 20.2 % 10/18/2024 11:02 AM EDT [facility] [place] Percent 10.6 % 10/18/2024 11:02 AM EDT [facility] Eos Percent 2.0 % 10/18/2024 11:02 AM EDT [facility] Baso Percent 0.9 % 10/18/2024 11:02 AM EDT [facility] Neut # 3.7 1.6 - 6.1 x10(3)/[facility] 10/18/2024 11:02 AM EDT [facility] Comment:Neutrophils equals s egs plus bands IMMGRAN# 0.0 0.0 - 0.1 x10(3)/mcL 10/18/2024 11:02 AM EDT [facility] Comment:Automated count of m etamyelocytes, myelocytes and promyelocytes. An absolute IG <0.1 is reported as 0.0. Lymph # 1.1(L) 1.2 - 3.9 x10(3)/mcL 10/18/2024 11:02 AM EDT [facility] [place] # 0.6 0.3 - 0.9 x10(3)/mcL 10/18/2024 11:02 AM EDT [facility] Eos# 0.1 0.0 - 0.5 x10(3)/[facility] 10/18/2024 11:02 AM EDT [facility] Baso # 0.1 0.0 - 0.1 x10(3)/mcL 10/18/2024 11:02 AM EDT [facility] Blood VENOUS BLOOD / Unknown Venipuncture / Unknown 10/18/2024 8:28 AM EDT 10/18/2024 8:28 AM EDT us Praneeth Fay MD HEMATOLOGY ORDERABLES Final Result [facility] [address] [facility] , [address] [place], [place] [id number] documented in this encounter Visit Diagnoses Diagnosis Prostate cancer (HCC) Malignant neoplasm of prostate 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) History of colon cancer Personal history of malignant neoplasm of large intestine documented in this encounter Additional Health Concerns Assessment Noted Time A fall risk assessment has been complete d for the patient 03/18/2022 10:38 AM EDT documented as of this encounter Care Teams Shipwright Apprentice Relationship Specialty Start Date End Date Jim Collins MD [address] [facility] [address] [place] [address] PCP - General Psychiatry & Neurology-Neurology 12/21/11 Diana Metcalf MD [address] [facility] [address] [place] [address] Consulting Physician Radiology-Radiation Oncology 04/02/15 Praneeth Fay MD [address] [place] [address] Medical Oncologist Internal Medicine-Hematology and Oncology 09/14/22 documented as of this encounter
--- OUTSIDE RECORDS SUMMARY | 2024-11-22 11:46 | XMS_ITS | Encounter Summary ---
Author Organization [place] [address] Care Team Providers Care Meal Cook Name Role Phone Jim Collins MD Primary Care Provider [phone] Diana Metcalf MD Unavailable [phone] Praneeth Fay MD Unavailable [phone] Reason for Visit * Reason Onset Date Comments Information Only 10/16/2024 Confirming appo intment Encounter Details Date Type Department Care Team (Late st Contact Info) Description 10/16/2024 Telephone [facility] [place], [place] [phone] Praneeth Fay MD [address] [place] [phone] Information Only (Confirming appointment ) Social History Tobacco Use Types Packs/Day Years [...] on file documented as of this encounter Miscellaneous Notes * Telephone Encounter - Gilda Mendoza, Clerical Staff - 10/16/2024 9:26 AM EDT Patient called to Confirm 10/23/24 Appointment time confirmed time with patient documented in this encounter Plan of Treatment Upcoming Encounters Date Type Department Care Team (Late st Contact Info) Description 01/28/2025 9:00 AM EDT Appointment [facility] [place] [address] Praneeth Fay MD [address] [facility] [place] [address] 01/29/2025 10:00 AM EDT Appointment [place] [address] 01/29/2025 10:40 AM EDT Appointment [facility] [place], [place] [phone] Praneeth Fay MD [address] [facility] [place] [address] documented as of this encounter Visit Diagnoses Not on filedocumented in this encounter Additional Health Concerns Assessment Noted Time A fall risk assessment has been complete d for the patient 03/18/2022 10:38 AM EDT documented as of this encounter Care Teams Meal Cook Relationship Specialty Start Date End Date Jim Collins MD [address] [facility] [address] [place] [phone] PCP - General Psychiatry & Neurology-Neurology 12/21/11 Diana Metcalf MD [address] [facility] [address] [place] [address] Consulting Physician Radiology-Radiation Oncology 04/02/15 Praneeth Fay MD [address] [facility] [place], [place] [phone] Medical Oncologist Internal Medicine-Hematology and Oncology 09/14/22 documented as of this encounter
--- OUTSIDE RECORDS SUMMARY | 2024-11-22 11:46 | XMS_ITS | Encounter Summary ---
Author Organization [place] [address] Care Team Providers Care Food Technologist Name Role Phone Jim Collins MD Primary Care Provider [phone] Diana Metcalf MD Unavailable [phone] Praneeth Fay MD Unavailable [phone] Reason for Visit * Reason Onset Date Comments Lab Orders 10/16/2024 Needed labs for 10/23 follow up Encounter Details Date Type Department Care Team (Late st Contact Info) Description 10/16/2024 Telephone [facility] [place], [place] [phone] Praneeth Fay MD [address] [place] [phone] Lab Orders (Needed labs for 10/23 follow up) Social History Tobacco Use Types Packs/Day Years [...] Telephone Encounter - Rowena Scott RN - 10/16/2024 2:01 PM EDT Labs entered. Called [place] w/ update. * Telephone Encounter - Rebecca Steiner, Clerical Staff - 10/16/2024 1:05 PM EDT Reason for call: Spouse (Wilma) called to ask if needed labs for 10/23 could be placed. States they would like for PSA results to be back for follow up appt and will have labs drawn this or Tuesday. Wilma states that they will have Diann drawn on day of follow up. Preferred call back number:[phone] documented in this encounter Plan of Treatment Upcoming Encounters Date Type Department Care Team (Late st Contact Info) Description 01/28/2025 9:00 AM EDT Appointment [facility] [place] [address] Praneeth Fay MD [address] [place] [address] 01/29/2025 10:00 AM EDT Appointment [facility] [place] [phone] 01/29/2025 10:40 AM EDT Appointment [place] [address] Praneeth Fay MD [address] [place] [address] documented as of this encounter Results * MISCELLANEOUS LAB (10/23/2024 10:18 AM EDT) Pathologist [facility] COMMENT Diann 10/24/2024 7:04 AM EDT [facility] Blood VASCULAR PORT AND CATHETER / Unknown Port / Unknown 10/23/2024 10:18 AM EDT 10/24/2024 7:03 AM EDT us Praneeth Fay MD HEMATOLOGY ORDERABLES Final Result Performing Organization Address City/[facility]/ZIP Co de Phone Number [address] [address] * CARCINOEMBRYONIC ANTIGEN (10/18/2024 8:28 AM EDT) CEA 4.24 ng/mL 10/18/2024 12:18 PM EDT [facility] Comment: Non-Smokers: <= 5.0 ng/mL Smokers: <= 10.0 ng/mL [employer] uses the [employer] Maker Helper CEA assay, which is intended to be [...] CHEMISTRY ORDERABLES Final Result Performing Organization Address [facility] Co de Phone Number [facility] [address], [place] [address] * (ABNORMAL) PROSTATE SPECIFIC ANTIGEN (TUMOR MARKER) (10/18/2024 8:28 AM EDT) Total Psa 6.52(H) <=4.00 ng/mL 10/18/2024 11:28 AM EDT [facility] Blood VENOUS BLOOD / Unknown Venipuncture / Unknown 10/18/2024 8:28 AM EDT 10/18/2024 8:28 AM EDT Narrative [facility] [employer] [facility] - 10/18/2024 11:28 AM EDT The Maggie [...] CHEMISTRY ORDERABLES Final Result [facility] [address] , [address] [place] [phone] * (ABNORMAL) COMPREHENSIVE METABOLIC PANEL (10/18/2024 8:28 [...] 10/18/2024 11:23 AM EDT [facility] Alk Phos 83 40 - 129 U/L 10/18/2024 11:23 AM EDT [facility] eGFR (CKD-EPIcr 2020) 98 >=60 mL/min/1.7 3 m2 10/18/2024 11:23 AM EDT [facility] Comment:Estimated GFR was ca lculated using the CKD-EPIcr (2020) equation refit without race. The equation is recommended by the National Kidney Foundation - [place] Society of Nephrology Task Force. Blood VENOUS BLOOD / Unknown Venipuncture / Unknown 10/18/2024 8:28 AM EDT 10/18/2024 8:28 AM EDT us Praneeth Fay MD CHEMISTRY ORDERABLES Final Result [facility] [address] , [place] [address] * (ABNORMAL) CBC WITH DIFF (10/18/2024 8:28 [...] 10/18/2024 11:02 AM EDT [facility] MCHC 32.0 30.7 - 35.5 g/dL 10/18/2024 11:02 AM EDT [facility] RDW 12.0 <=14.9 % 10/18/2024 11:02 AM EDT [facility] Platelet 240 155 - 369 x10(3)/[facility] 10/18/2024 11:02 AM EDT [facility] MPV 9.6 8.8 - 12.5 fL 10/18/2024 11:02 AM EDT [facility] Neut Percent 65.6 % 10/18/2024 11:02 AM EDT [facility] Comment:Neutrophils equals s egs plus bands Imm Gran% 0.7 % 10/18/2024 11:02 AM EDT [facility] Comment:Automated count of m etamyelocytes, myelocytes and promyelocytes. Lymph Percent 20.2 % 10/18/2024 11:02 AM EDT [facility] [place] Percent 10.6 % 10/18/2024 11:02 AM EDT [facility] Eos Percent 2.0 % 10/18/2024 11:02 AM EDT [facility] Baso Percent 0.9 % 10/18/2024 11:02 AM EDT [facility] Neut # 3.7 1.6 - 6.1 x10(3)/[facility] 10/18/2024 11:02 AM EDT [facility] Comment:Neutrophils equals s egs plus bands IMMGRAN# 0.0 0.0 - 0.1 x10(3)/[facility] 10/18/2024 11:02 AM EDT [facility] Comment:Automated count of m etamyelocytes, myelocytes and promyelocytes. An absolute IG <0.1 is reported as 0.0. Lymph # 1.1(L) 1.2 - 3.9 x10(3)/[facility] 10/18/2024 11:02 AM EDT [facility] [place] # 0.6 0.3 - 0.9 x10(3)/[facility] 10/18/2024 11:02 AM EDT [facility] Eos# 0.1 0.0 - 0.5 x10(3)/[facility] 10/18/2024 11:02 AM EDT [facility] [employer] Baso # 0.1 0.0 - 0.1 x10(3)/mcL 10/18/2024 11:02 AM EDT [facility] Blood VENOUS BLOOD / Unknown Venipuncture / Unknown 10/18/2024 8:28 AM EDT 10/18/2024 8:28 AM EDT Praneeth Fay MD HEMATOLOGY ORDERABLES Final Result [facility] [address] , [address] [place], [place] [phone] documented in this encounter Visit Diagnoses Diagnosis [...] documented as of this encounter Care Teams Food Technologist Relationship Specialty Start Date End Date Jim Collins MD [address] [facility] [address] [place] [phone] PCP - General Psychiatry & Neurology-Neurology 12/21/11 Diana Metcalf MD [address] [place] [address] Consulting Physician Radiology-Radiation Oncology 04/02/15 Praneeth Fay MD [address] [place] [address] Medical Oncologist Internal Medicine-Hematology and Oncology 09/14/22 documented as of this encounter
--- OUTSIDE RECORDS SUMMARY | 2024-11-22 11:46 | XMS_ITS | Encounter Summary ---
Author Organization Healthcare Address [address] [place] [address] Care Team Providers Care Network Technical Analyst Name Role Phone Unavailable Primary Care Provider Unavailabl e Encounter Details Date Type Department Care Team (Late st Contact Info) Description 10/15/2015 Orders Only External Location [address] [place] [address] Provider, External Social History Tobacco Use Types Packs/Day Years Used Date Smoking Tobacco: Never Assessed Sex and Gender Information Value Date Recorded Sex Assigned at Not on file Legal Sex Male 8:10 PM EDT Gender Identity Not on file Sexual Orientation Not on file documented as of this encounter Plan of Treatment Not on file documented as of this encounter Procedures Procedure Name Priority Date/Time Associated Diagnosis Comments XR CHEST 2 VIEWS 10/15/2015 1:58 PM EDT documented in this encounter Results * XR Chest 2 Views (10/15/2015 1:58 PM EDT) Anatomical Region Laterality Modality Chest Digital Radiogra phy 10/15/2015 1:58 PM EDT us External Provider IMG XR PROCEDURES Final Result documented in this encounter Visit Diagnoses Not on filedocumented in this encounter
--- OUTSIDE RECORDS SUMMARY | 2024-11-22 11:46 | XMS_ITS | Clinical Summary ---
Author Organization Healthcare Address [address] [place] [address] Care Team Providers Care Pre Press Proofer Name Role Phone Unavailable Primary Care Provider Unavailabl e Family History Medical History Relation Name Comments Hypertension Brother 1 Other cancer Brother 2 Hypertension Father Other cancer Father Cardiac disorder Other Hypertension Sister 1 Other cancer Sister 2 Relation Name Status Comments Brother 1 Brother 2 Father Other Sister 1 Sister 2 Social History Tobacco Use Types Packs/Day Years [...] Sign Reading Time Taken Comments Blood Pressure - - Pulse - - Temperature - - Respiratory Rate - - Oxygen Saturation - - Inhaled Oxygen Concentration - - Weight 87.5 kg (192 lb 15.9 oz) 02/28/2015 2:16 PM EDT Height 172.7 cm (5' 8 ) 10/22/2013 2:15 PM EDT Body Mass Index 29.34 10/22/2013 2:15 PM EDT Plan of Treatment Not on file
== END 2024-11-20 23:59 | disposition home or self-care (01) ==
LOC: LAB.DROPOF 11-22 11:44
PROVIDERS: PCP Family Medicine; Visit Provider Family Medicine
DX: E11.9 Type 2 diabetes mellitus without complications (principal)
CPT/HCPCS: 80053

== ENCOUNTER 2025-02-26 12:00 | Outpatient (CLI) | payer MEDICARE, SELFPAY ==
--- OUTSIDE RECORDS SUMMARY | 2025-01-25 08:16 | XMS_ITS | Encounter Summary ---
Author Organization [place] [address] Care Team Providers Care Casting Agent Name Role Phone Jim Collins MD Primary Care Provider [phone] Diana Metcalf MD Unavailable [phone] Praneeth Fay MD Unavailable [phone] Encounter Details Date Type Department Care Team (Latest Contact Info) Description 01/25/2025 8:16 AM EDT - 01/25/2025 11:59 PM EDT Hospital Encounter [facility] [address], [place] [id number] Prostate cancer (HCC) Discharge Disposition: Home or Self Care Social [...] Top Cream Apply topically 2 times daily. lidocaine-priloc luis (EMLA) Top CreamIndications :Prostate cancer (HCC) Apply one nickel sized glob over port approx 30 minutes before appt. DO NOT RUB IN. Cover with plastic wrap 30 g 2 10/23/2024 losartan-hydroch lorothiazide (HYZAAR) 100-12.5 mg Oral Tablet Take 1 Tab by mouth daily. metFORMIN (GLUCOPHAGE) 500 mg Oral Tablet Take 500 mg by mouth daily. metoprolol (LOPRESSOR) 25 mg Oral Tablet Take 25 mg by mouth daily. rosuvastatin (CRESTOR) 5 mg Oral Tablet Take 5 mg by mouth every other day. empagliflozin (JARDIANCE) 10 mg Oral Tablet Take 10 mg by mouth daily. documented as of this encounter Discharge Disposition Disposition Code Departure Means Destination Home or Self Care documented in this encounter Plan of Treatment Upcoming Encounters Date Type Department Care Team (Late st Contact Info) Description 04/23/2025 8:30 AM EST Appointment [place] [address] 04/30/2025 10:40 AM EST [facility]ointment [facility] [place] [address] Praneeth Fay MD [address] [place] [address] documented as of this encounter Procedures Procedure Name Priority Date/Time Associated Diagnosis Comments CBC WITH DIFF STAT 01/25/2025 8:32 AM EDT Prostate cancer (HCC) PROSTATE SPECIFIC ANTIGEN (TUMOR MARKER) Routine 01/25/2025 8:32 AM EDT Prostate cancer (HCC) COMPREHENSIVE METABOLIC PANEL STAT 01/25/2025 8:32 AM EDT Prostate cancer (HCC) documented in this encounter Results * (ABNORMAL) PROSTATE SPECIFIC ANTIGEN (TUMOR MARKER) (01/25/2025 8:32 AM EDT) Total Psa 6.54(H) <=4.00 ng/mL 01/25/2025 4:31 PM EDT [facility] [employer] Blood VENOUS BLOOD / Unknown Venipuncture / Unknown 01/25/2025 8:32 AM EDT 01/25/2025 8:32 AM EDT Narrative [facility] - 01/25/2025 4:31 PM EDT [employer] total PSA electrochemiluminescence [...] CHEMISTRY ORDERABLES Final Result [facility] [address] [facility] [address] , [place] [address] * (ABNORMAL) COMPREHENSIVE METABOLIC PANEL (01/25/2025 8:32 AM EDT) Sodium 139 136 - 145 mmol/L 01/25/2025 10:42 AM EDT [facility] Potassium 4.1 3.5 - 5.0 mmol/L 01/25/2025 10:42 AM EDT [facility] Chloride 102 98 - 107 mmol/L 01/25/2025 10:42 AM EDT [facility] Total CO2 28 22 - 29 mmol/L 01/25/2025 10:42 AM EDT [facility] Anion Gap 9 7 - 16 mmol/L 01/25/2025 10:42 AM EDT [facility] Calcium 9.0 8.8 - 10.4 mg/dL 01/25/2025 10:42 AM EDT [facility] Glucose Lvl 193(H) 70 - 99 mg/dL 01/25/2025 10:42 AM EDT [facility] BUN 20 8 - 23 mg/dL 01/25/2025 10:42 AM EDT [facility] Creatinine 0.68 0.67 - 1.30 mg/dL 01/25/2025 10:42 AM EDT [facility] Albumin 4.0 3.2 - 4.6 gm/dL 01/25/2025 10:42 AM EDT [facility] Total Protein 6.9 6.4 - 8.3 gm/dL 01/25/2025 10:42 AM EDT [facility], [facility] Bili Total 0.4 0.2 - 1.4 mg/dL 01/25/2025 10:42 AM EDT [facility] ALT 20 <=41 U/L 01/25/2025 10:42 AM EDT [facility], [facility] AST 15 <=40 U/L 01/25/2025 10:42 AM EDT [facility] Alk Phos 70 40 - 129 U/L 01/25/2025 10:42 AM EDT [facility], [facility] eGFR (CKD-EPIcr 2020) 98 >=60 mL/min/1.7 3 m2 01/25/2025 10:42 AM EDT [facility], [facility] Comment:Estimated GFR was ca lculated using the CKD-EPIcr (2020) equation refit without race. The equation is recommended by the National Kidney Foundation - [place] [employer] of Nephrology Task Force. Blood VENOUS BLOOD / Unknown Venipuncture / Unknown 01/25/2025 8:32 AM EDT 01/25/2025 8:32 AM EDT us Praneeth Fay MD CHEMISTRY ORDERABLES Final Result [facility] [address] [facility] [address] , [address] [place] [phone] * (ABNORMAL) CBC WITH DIFF (01/25/2025 8:32 AM EDT) WBC 4.2 3.7 - 10.3 x10(3)/mcL 01/25/2025 10:27 AM EDT [facility], [facility] RBC 4.79 4.60 - 6.10 x10(6)/mcL 01/25/2025 10:27 AM EDT [facility], [facility] Hgb 14.7 13.7 - 17.5 g/dL 01/25/2025 10:27 AM EDT [facility] Hct 45.8 40.0 - 51.0 % 01/25/2025 10:27 AM EDT [facility] MCV 95.6 80.0 - 100.0 fL 01/25/2025 10:27 AM EDT [facility] MCH 30.7 26.0 - 34.0 pg 01/25/2025 10:27 AM EDT [facility] MCHC 32.1 30.7 - 35.5 g/dL 01/25/2025 10:27 AM EDT [facility] RDW 12.1 <=14.9 % 01/25/2025 10:27 AM EDT [facility] Platelet 238 155 - 369 x10(3)/mcL 01/25/2025 10:27 AM EDT [facility] MPV 10.2 8.8 - 12.5 fL 01/25/2025 10:27 AM EDT [facility] Neut Percent 61.9 % 01/25/2025 10:27 AM EDT [facility] Comment:Neutrophils equals s egs plus bands Imm Gran% 0.2 % 01/25/2025 10:27 AM EDT [facility] Comment:Automated count of m etamyelocytes, myelocytes and promyelocytes. Lymph Percent 20.6 % 01/25/2025 10:27 AM EDT [facility] [place] Percent 13.7 % 01/25/2025 10:27 AM EDT [facility] Eos Percent 2.9 % 01/25/2025 10:27 AM EDT [facility] Baso Percent 0.7 % 01/25/2025 10:27 AM EDT [facility] Neut # 2.6 1.6 - 6.1 x10(3)/mcL 01/25/2025 10:27 AM EDT [facility] Comment:Neutrophils equals s egs plus bands IMMGRAN# 0.0 0.0 - 0.1 x10(3)/mcL 01/25/2025 10:27 AM EDT [facility] Comment:Automated count of m etamyelocytes, myelocytes and promyelocytes. An absolute IG <0.1 is reported as 0.0. Lymph # 0.9(L) 1.2 - 3.9 x10(3)/[facility] 01/25/2025 10:27 AM EDT [facility] [place] # 0.6 0.3 - 0.9 x10(3)/[facility] 01/25/2025 10:27 AM EDT [facility] Eos# 0.1 0.0 - 0.5 x10(3)/[facility] 01/25/2025 10:27 AM EDT [facility] Bas[place] # 0.0 0.0 - 0.1 x10(3)/[facility] 01/25/2025 10:27 AM EDT [facility] Blood VENOUS BLOOD / Unknown Venipuncture / Unknown 01/25/2025 8:32 AM EDT 01/25/2025 8:32 AM EDT us Praneeth Fay MD HEMATOLOGY ORDERABLES Final Result [facility] [address] [facility] [address] , [address] [place] [phone] documented in this encounter Visit Diagnoses Diagnosis Prostate cancer (HCC) Malignant neoplasm of prostate documented in this encounter Additional Health Concerns Assessment Noted Time A fall risk assessment has been complete d for the patient 03/18/2022 10:38 AM EDT documented as of this encounter Care Teams Casting Agent Relationship Specialty Start Date End Date Jim Collins MD [address] [place] [address] [address] [place] [id number] PCP - General Psychiatry & Neurology-Neurology 12/21/11 Diana Metcalf MD [address] [facility] [place] [address] Consulting Physician Radiology-Radiation Oncology 04/02/15 Praneeth Fay MD [address] [place] [address] Medical Oncologist Internal Medicine-Hematology and Oncology 09/14/22 documented as of this encounter
--- OUTSIDE RECORDS SUMMARY | 2025-01-28 08:49 | XMS_ITS | Encounter Summary ---
Author Organization [place] [address] Care Team Providers Care Freight Traffic Consultant Name Role Phone Jim Collins MD Primary Care Provider [phone] Diana Metcalf MD Unavailable [phone] Praneeth Fay MD Unavailable Reason for Referral * MRI/CAT Scan (Routine) - Closed Specialty Diagnoses / Procedures Referred By Contac t Referred To Contact Radiology Diagnoses Prostate cancer (HCC) Procedures CT CHEST ABDOMEN PELVIS W CONTRAST Praneeth Fay MD [address] [place] [address] Phone: tel: fax: [place] [address] Phone: tel: fax: Referral ID Status Reason Start Date Expiration Date Visits Re quested Visits Authorized [id number] Closed 10/23/2024 10/23/2025 1 1 Reason for Visit * MRI/CAT Scan (Routine) - Closed Specialty Diagnoses / Procedures Referred By Contac t Referred To Contact Radiology Diagnoses Prostate cancer (HCC) Procedures CT CHEST ABDOMEN PELVIS W CONTRAST Praneeth Fay MD [address] [place] [address] Phone: tel: fax: [facility] [place] [address] Phone: tel: fax: Referral ID Status Reason Start Date Expiration Date Visits Re quested Visits Authorized [id number] Closed 10/23/2024 10/23/2025 1 1 Encounter Details Date Type Department Care Team (Latest Contact Info) Description 01/28/2025 8:49 AM EDT - 01/28/2025 11:59 PM EDT Hospital Encounter [facility] [address] Praneeth Fay MD [address] [place] [address] Prostate cancer (HCC) Discharge Disposition: Home or [...] AM EST Appointment [place] [address] 04/30/2025 10:40 AM EST Appointment [facility] [place] [address] Praneeth Fay MD [address] [place] [address] documented as of this encounter Procedures Procedure Name Priority Date/Time Associated Diagnosis Comments CT CHEST ABDOMEN PELVIS W CONTRAST Routine 01/28/2025 9:19 AM EDT Prostate cancer (HCC) documented in this encounter Results * CT CHEST ABDOMEN PELVIS W CONTRAST (01/28/2025 9:19 AM EDT) Anatomical Region Laterality Modality Abdomen, Chest, Pelvis Computed Tomography 01/28/2025 9:19 AM EDT Impressions 01/28/2025 11:40 AM EDT Stable right iliac chain lymph node. No evidence of new/enlarging adenopathy or progressive malignancy/metastatic disease. - Note: Radiology results need to be interpreted within a comprehensive clinical context. If you have questions about the radiology report, please contact the office of the ordering clinician. Narrative 01/28/2025 11:[address] CHEST, ABDOMEN, AND PELVIS WITH CONTRAST, 01/28/2025 9:19 AM CLINICAL HISTORY: [id number] neoplasm of prostate (HCC)-ICD-10-CM. COMPARISON: CT 07/16/2024; the 07/18/2023 PROCEDURE COMMENTS: Multidetector CT chest abdomen and pelvis with multiplanar reconstructions. Isovue 370 IV contrast given as recorded in EPIC. Dose 1 : CT DLP Total : 1032.09 mGycm DLP Spiral Max : 781.65 mGycm Maximum CTDI Vol : 15.26 mGy FINDINGS: CHEST: Heart size normal. No pericardial effusion. Coronary artery atherosclerosis redemonstrated. No thoracic aortic aneurysm. No pulmonary arterial filling defect. No evidence of adenopathy. The trachea and central airways are patent. ABDOMEN AND PELVIS: Visible solid and hollow viscera unremarkable. No mass or acute inflammatory process. No bowel obstruction or free air. Unchanged borderline/mildly enlarged right iliac chain lymph node. No new or progressive adenopathy. MUSCULOSKELETAL: No acute or worrisome osseous abnormality. DISH. Degenerative changes spine with severe central canal narrowing at L4-5. Procedure Note Anthony Lee MD - 01/28/2025 CT CHEST, ABDOMEN, AND PELVIS WITH CONTRAST, 01/28/2025 9:19 AM CLINICAL HISTORY: [id number] neoplasm of prostate (HCC)-ICD-10-CM. COMPARISON: CT 07/16/2024; the 07/18/2023 PROCEDURE COMMENTS: Multidetector CT chest abdomen and pelvis withmultiplanar reconstructions. Isovue 370 IV contrast given as recorded in EPIC. Dose 1 : CT DLP Total : 1032.09 mGycm DLP Spiral Max : 781.65 mGycm Maximum CTDI Vol : 15.26 mGy FINDINGS: CHEST: Heart size normal. No pericardial effusion. Coronary artery atherosclerosis redemonstrated. No thoracic aortic aneurysm. Nopulmonary arterial filling defect. No evidence of adenopathy. The trachea andcentral airways are patent. ABDOMEN AND PELVIS: Visible solid and hollow viscera unremarkable. [place] or acute inflammatory process. No bowel obstruction or free air. Unchanged borderline/mildly enlarged right iliac chain lymph node. No newor progressive adenopathy. MUSCULOSKELETAL: No acute or worrisome osseous abnormality. DISH.Degenerative changes spine with severe central canal narrowing at L4-5. IMPRESSION: Stable right iliac chain lymph node. No evidence of new/enlargingadenopathy or progressive malignancy/metastatic disease. - Note: Radiology results need to be interpreted within a comprehensiveclinical context. If you have questions about the radiology report, please contactthe office of the ordering clinician. us Praneeth Fay MD IMG CT ORDERABLES Final Res ult documented in this encounter Visit Diagnoses Diagnosis Prostate cancer (HCC) Malignant neoplasm of prostate documented in this encounter Administered Medications Inactive Administered Medications - up to 1 most recent administrations Medication Order MAR Action Action Date Dose Rate Site heparin flush 100 unit/mL injection 500 Units 500 Units, Intravenous, ONCE PRN, 1 dose, Starting on Tue01/28/25 at 0858, Until Tue01/28/25 at 0919, Line Care, CT (Contrasts) Given 01/28/2025 9:19 AM EDT 500 Units iopamidoL (ISOVUE-370) 370 mg iodine /mL (76 %) injection (LOW) 100 mL 100 mL, Intravenous, ONCE PRN, 1 dose, Starting on Tue01/28/25 at 0858, Until Tue01/28/25 at 0919, Radiography/Imaging, Radiology Procedure, VESICANT , CT (Contrasts) Given 01/28/2025 9:19 AM EDT 100 mL sodium chloride 0.9% syringe Intravenous, ONCE PRN, 1 dose, Starting on Tue01/28/25 at 0858, Until Tue01/28/25 at 0919, Line Care, Flush peripheral lines every 12 hours, central lines every 8 hours, and after IV medication, CT (Contrasts) Given 01/28/2025 9:19 AM EDT 20 mL documented in this encounter Additional Health Concerns Assessment Noted Time A fall risk assessment has been complete d for the patient 03/18/2022 10:38 AM EDT documented as of this encounter Care Teams Freight Traffic Consultant Relationship Specialty Start Date End Date Jim Collins MD [address] [place] [address] [address] [place] [phone] PCP - General Psychiatry & Neurology-Neurology 12/21/11 Diana Metcalf MD [address] [facility] [address] [place] [address] Consulting Physician Radiology-Radiation Oncology 04/02/15 Praneeth Fay MD [address] [place] [address] Medical Oncologist Internal Medicine-Hematology and Oncology 09/14/22 documented as of this encounter
--- OUTSIDE RECORDS SUMMARY | 2025-01-29 09:57 | XMS_ITS | Encounter Summary ---
Author Organization [place] [address] Care Team Providers Care Spa Director/Finance Name Role Phone Jim Collins MD Primary Care Provider [phone] Diana Metcalf MD Unavailable [phone] Praneeth Fay MD Unavailable [phone] Encounter Details Date Type Department Care Team (Latest Contact Info) Description 01/29/2025 9:57 AM EDT - 01/29/2025 10:11 AM EDT Hospital Encounter [facility] [place] [id number] Praneeth Fay MD [address] [place], [place] [id number] Prostate cancer (HCC) (Primary Dx); Malignant neoplasm [...] AM EST Appointment [place] [place] [address] 04/30/2025 10:40 AM EST Appointment [facility] [place] [address] Praneeth Fay MD [address] [place] [address] documented as of this encounter Procedures Procedure Name Priority Date/Time Associated Diagnosis Comments MISCELLANEOUS LAB Routine 01/29/2025 10: 10 AM EDT Prostate cancer (HCC) 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) History of colon cancer documented in this encounter Results * MISCELLANEOUS LAB (01/29/2025 10:10 AM EDT) Pathologist [facility] COMMENT Diann 01/30/2025 7:05 AM EDT [facility] Blood VENOUS BLOOD / Unknown Port / Unknown 01/29/2025 10:10 AM EDT 01/30/2025 7:04 AM EDT us Praneeth Fay MD HEMATOLOGY ORDERABLES Final Result [facility] [address] [place] [address] documented in this encounter Visit Diagnoses Diagnosis [...] Units 500 Units, Intravenous, PRN, Starting on Tue01/29/25 at 1000, Until Tue01/30/25 at 0406, Line Care, For Venous Access Device care and maintenance., Dx: 1. Prostate cancer (HCC)Indications:Prostate cancer (HCC) Given 01/29/2025 10:19 AM EDT 500 Units sodium chloride 0.9 % sterile syringe Intravenous, PRN, Starting on Tue01/29/25 at 1000, Until Tue01/30/25 at 0406, Line Care, For initial access of Venous Access Device., Dx: 1. Prostate cancer (HCC)Indications:Prostate cancer (HCC) Given 01/29/2025 10:19 AM EDT 10 mL documented in this encounter Orders Medications Ordered That Cody ht Not Have Been Administered Count Last Ordered Date First Ordered Date heparin flush 100 unit/mL in jection 500 Units 1 01/29/2025 sodium chloride 0.9 % sterile syringe 1 01/2025 sodium chloride 0.9% syringe 2 01/29/2025 documented in this encounter Additional Health Concerns Assessment Noted Time A fall risk assessment has been complete d for the patient 03/18/2022 10:38 AM EDT documented as of this encounter Care Teams Spa Director/Finance Relationship Specialty Start Date End Date Jim Collins MD [address] [place] [address] [address] [place] [phone] PCP - General Psychiatry & Neurology-Neurology 12/21/11 Diana Metcalf MD [address] [facility] [place] [address] Consulting Physician Radiology-Radiation Oncology 04/02/15 Praneeth Fay MD [address] [facility] [place], [place] [address] Medical Oncologist Internal Medicine-Hematology and Oncology 09/14/22 documented as of this encounter
--- OUTSIDE RECORDS SUMMARY | 2025-01-29 10:12 | XMS_ITS | Encounter Summary ---
Author Organization [place] [address] Care Team Providers Care Marketing Summer Intern Name Role Phone Jim Collins MD Primary Care Provider [phone] Diana Metcalf MD Unavailable [phone] Praneeth Fay MD Unavailable [phone] Reason for Visit * Reason Comments Follow-up Prostate cancer Encounter Details Date Type Department Care Team (Latest Contact Info) Description 01/29/2025 10:12 AM EDT - 01/29/2025 11:42 AM EDT Hospital Encounter [facility] [place] [address] Praneeth Fay MD [address] [place] [address] [phone] Prostate cancer (HCC) (Primary Dx); 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); History of colon cancer; History of chemotherapy; Chemotherapy-induce d neuropathy Discharge Disposition: Home or Self Care Social [...] Sign Reading Time Taken Comments Blood Pressure 194/98 01/29/2025 10:07 AM EDT Pulse 56 01/29/2025 10:07 AM EDT Temperature 36.3 C (97.4 F) 01/29/2025 10:07 AM EDT Respiratory Rate 17 01/29/2025 10:07 AM EDT Oxygen Saturation 98% 01/29/2025 10:07 AM EDT Inhaled Oxygen Concentration - - Weight 86.2 kg (190 lb) 01/29/2025 10:07 AM EDT Height 172.7 cm (5' 8 ) 01/29/2025 10:07 AM EDT Body Mass Index 28.89 01/29/2025 10:07 AM EDT documented in this encounter Medications at Time of Discharge [...] Tablet Take 25 mg by mouth daily. pregabalin (LYRICA) 75 mg Oral Capsule Take 75 mg by mouth 3 times daily. rosuvastatin (CRESTOR) 5 mg Oral Tablet Take 5 mg by mouth every other day. empagliflozin (JARDIANCE) 10 mg Oral Tablet Take 10 mg by mouth daily. documented as of this encounter Discharge Disposition Disposition Code Departure Means Destination Home or Self Care documented in this encounter Progress Notes * Praneeth Fay MD - 01/29/2025 10:40 AM EDT Images from the original note were not included. Patient: Emiliano Mcclain [facility]: [id number] Date of : 1950 Age: 74 y.o. Date of Service: 01/29/2025 HEMATOLOGY/ONCOLOGY FOLLOW UP VISIT Primary Associate Software Application Engineer & Oncologist: Praneeth Fay MD DIAGNOSIS & TREATMENT HISTORY: Oncology History Overview Note Colonic adenocarcinoma, stage III ([id number]) Dx 07/2022. P/w abd pain, admitted w/ [...] today for follow-up with prostate cancer. Feeling ok. Some ongoing neuropathy, recently started on lyrica w/ mild improvement. Chronic loose stool stable, no s/s of bleeding. No urinary complaints. REVIEW OF SYSTEMS: Review of Systems Constitutional: Negative for chills, fatigue and fever. Respiratory: Negative for cough and shortness of breath. Cardiovascular: Negative for chest pain and leg swelling. Gastrointestinal: Positive for diarrhea. Negative for abdominal pain, blood in stool, nausea and vomiting. Genitourinary: Negative for difficulty urinating, frequency and hematuria. Musculoskeletal: Positive for arthralgias. Psychiatric/Behavioral: The patient is nervous/anxious. MEDICATIONS: Medications and allergies reviewed PHYSICAL EXAM: Vitals: 01/29/25 1007 BP: (!) 194/98 Pulse: 56 Resp: 17 Temp: 97.4 ??F (36.3 ??C) SpO2: 98% Wt Readings from Last 2 Encounters: 01/29/25 190 lb (86.2 kg) 10/23/24 180 lb 4.8 oz (81.8 kg) ECO Physical Exam Cardiovascular: Rate and Rhythm: Normal rate. 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 P/w abd pain, admitted w/ SBO. iCEA 3.5 (07/07/22). CT imaging w/o distant dz. S/p RIGHT partial colectomy 08/04/22 @ OSH ([facility]) which confirmed invasive moderately diff adenocarcinoma w/ invasion into pericolonic fat (pT3) and 7/12 LNs positive for metastatic ca (pN2b). Two tumor deposits identified. Surgical margins negative. MSI-intact. -- completed adjuvant CAPOX x 3 months (4 cycles) 10/2022. -- germline testing completed (07/27/24), negative -- completed colonoscopy (03/15/24) with no evidence of recurrence, polyp removed. Planning repeat ~2026 -- no clinical changes. Reviewed follow-up CT CAP (01/28/25) which appears stable, mild R iliac chain LAD stable. CEA pending. Last c-tumor DNA was negative (10/2024), also repeating today. Will continue to monitor, RTC in 3 months w/ H&P, labs Prostatic adenocarcinoma Dx 2009. iPSA 5.3. s/p radical prostatectomy 10/2009 (pT2c, G7(3+4)). Completed salvage XRT 06/2015given biochemical recurrence. Slowly rising PSA over several yrs and PSMA PET/CT 06/2022 +avid metastatic pelvic LNs. -- no clinical changes, symptoms. PSA remains overall stable (6.54 ng/mL last wk). Will therefore continue to monitor. -- continue follow-up with Rad/Onc (Dr. Metcalf) HTN Elevated today, no associated symptoms. Will recheck at home, no associated symptoms. On BB, losartan/HCTZ. Continue to monitor. Chemotherapy induced neuropathy G2, worsened, a/w ?DM. Recently placed on lyrica, continue to monitor IV access PAC placed via IR 09/07/22 Advance Directives: Advance Directives and Living Will: Not Received Power of Marketing And Promotions Manager: Not Received ADVANCE DIRECTIVE: Not Received Code Status: Not on file Dispo: Return in about 3 months (around 04/30/2025) for MD ANN. Thank you for the opportunity to assist in the care of this patient, please feel free to contact meif I can be of any assistance. Time-Based Billing Statement I spent 37 minutes in the care of this patient on this calendar day. Activities performed during this time include: Reviewing labs, Reviewing imaging, Counseling and educating, Ordering tests, Documenting clinical information in the EHR, and Independent review and interpretation of imaging The total time documented above did not include the following activities which were also performed on this calendar day: None Praneeth Fay MD Hematology and Medical Oncology [facility] documented in this encounter Plan of Treatment Upcoming Encounters Date Type Department Care Team (Late st Contact Info) Description 04/23/2025 8:30 AM EST Appointment [place] [address] 04/30/2025 10:40 AM EST Appointment [facility] [place] [address] Praneeth Fay MD [address] [place] [address] documented as of this encounter Results * CARCINOEMBRYONIC ANTIGEN (01/29/2025 11:45 AM EDT) CEA 3.78 ng/mL 01/29/2025 4:26 PM EDT [employer] Comment: Non-Smokers: <= 5.0 ng/mL Smokers: <= 10.0 ng/mL [facility] uses the Leo Artificial Limb Fitter CEA assay, which is intended to be [...] VENOUS BLOOD / Unknown Venipuncture / Unknown 01/29/2025 11:45 AM EDT 01/29/2025 11:45 AM EDT Praneeth Fay MD CHEMISTRY ORDERABLES Final Result Performing Organization Address City/[facility]/ZIP Co de Phone Number [employer] [address] [facility], [place] [address] * MISCELLANEOUS LAB (01/29/2025 10:10 AM EDT) [facility] MISC COMMENT Diann 01/30/2025 7:05 AM EDT [facility] Blood VENOUS BLOOD / Unknown Port / Unknown 01/29/2025 10:10 AM EDT 01/30/2025 7:04 AM EDT Praneeth Fay MD HEMATOLOGY ORDERABLES Final Result Performing Organization Address City/[facility] Co de Phone Number [place] [phone] * (ABNORMAL) PROSTATE SPECIFIC ANTIGEN (TUMOR MARKER) (01/25/2025 8:32 AM EDT) [facility] Total Psa 6.54(H) <=4.00 ng/mL 01/25/2025 4:31 PM EDT [employer] Blood VENOUS BLOOD / Unknown Venipuncture / Unknown 01/25/2025 8:32 AM EDT 01/25/2025 8:32 AM EDT Narrative [facility] - 01/25/2025 4:31 PM EDT The Maggie [...] CHEMISTRY ORDERABLES Final Result [facility] [address] [facility] , [address] [place] [phone] * (ABNORMAL) COMPREHENSIVE METABOLIC PANEL (01/25/2025 8:32 AM EDT) Sodium 139 136 - 145 mmol/L 01/25/2025 10:42 AM EDT [facility] Potassium 4.1 3.5 - 5.0 mmol/L 01/25/2025 10:42 AM EDT [facility] Chloride 102 98 - 107 mmol/L 01/25/2025 10:42 AM EDT [facility] Total CO2 28 22 - 29 mmol/L 01/25/2025 10:42 AM EDT [facility] Anion Gap 9 7 - 16 mmol/L 01/25/2025 10:42 AM EDT [facility] Calcium 9.0 8.8 - 10.4 mg/dL 01/25/2025 10:42 AM EDT [facility] Glucose Lvl 193(H) 70 - 99 mg/dL 01/25/2025 10:42 AM EDT [facility] BUN 20 8 - 23 mg/dL 01/25/2025 10:42 AM EDT [facility] Creatinine 0.68 0.67 - 1.30 mg/dL 01/25/2025 10:42 AM EDT [facility] Albumin 4.0 3.2 - 4.6 gm/dL 01/25/2025 10:42 AM EDT [facility] Total Protein 6.9 6.4 - 8.3 gm/dL 01/25/2025 10:42 AM EDT [facility] Bili Total 0.4 0.2 - 1.4 mg/dL 01/25/2025 10:42 AM EDT [facility] ALT 20 <=41 U/L 01/25/2025 10:42 AM EDT [facility] AST 15 <=40 U/L 01/25/2025 10:42 AM EDT [facility] Alk Phos 70 40 - 129 U/L 01/25/2025 10:42 AM EDT [facility] eGFR (CKD-EPIcr 2020) 98 >=60 mL/min/1.7 3 m2 01/25/2025 10:42 AM EDT [facility] Comment:Estimated GFR was ca lculated using the CKD-EPIcr (2020) equation refit without race. The equation is recommended by the National Kidney Foundation - [place] Society of Nephrology Task Force. Blood VENOUS BLOOD / Unknown Venipuncture / Unknown 01/25/2025 8:32 AM EDT 01/25/2025 8:32 AM EDT us Praneeth Fay MD CHEMISTRY ORDERABLES Final Result [facility] [address] [facility] , [place] [address] * (ABNORMAL) CBC WITH DIFF (01/25/2025 8:32 AM EDT) WBC 4.2 3.7 - 10.3 x10(3)/mcL 01/25/2025 10:27 AM EDT [facility] RBC 4.79 4.60 - 6.10 x10(6)/mcL 01/25/2025 10:27 AM EDT [facility] Hgb 14.7 13.7 - 17.5 g/dL 01/25/2025 10:27 AM EDT [facility] Hct 45.8 40.0 - 51.0 % 01/25/2025 10:27 AM EDT [facility] MCV 95.6 80.0 - 100.0 fL 01/25/2025 10:27 AM EDT [facility] MCH 30.7 26.0 - 34.0 pg 01/25/2025 10:27 AM EDT [facility] MCHC 32.1 30.7 - 35.5 g/dL 01/25/2025 10:27 AM EDT [facility] RDW 12.1 <=14.9 % 01/25/2025 10:27 AM EDT [facility] Platelet 238 155 - 369 x10(3)/mcL 01/25/2025 10:27 AM EDT [facility] MPV 10.2 8.8 - 12.5 fL 01/25/2025 10:27 AM EDT [facility] Neut Percent 61.9 % 01/25/2025 10:27 AM EDT [facility] Comment:Neutrophils equals s egs plus bands Imm Gran% 0.2 % 01/25/2025 10:27 AM EDT [facility] Comment:Automated count of m etamyelocytes, myelocytes and promyelocytes. Lymph Percent 20.6 % 01/25/2025 10:27 AM EDT [facility] Percent 13.7 % 01/25/2025 10:27 AM EDT [facility] Eos Percent 2.9 % 01/25/2025 10:27 AM EDT [facility] Baso Percent 0.7 % 01/25/2025 10:27 AM EDT [facility] Neut # 2.6 1.6 - 6.1 x10(3)/mcL 01/25/2025 10:27 AM EDT [facility] Comment:Neutrophils equals s egs plus bands IMMGRAN# 0.0 0.0 - 0.1 x10(3)/mcL 01/25/2025 10:27 AM EDT [facility] Comment:Automated count of m etamyelocytes, myelocytes and promyelocytes. An absolute IG <0.1 is reported as 0.0. Lymph # 0.9(L) 1.2 - 3.9 x10(3)/mcL 01/25/2025 10:27 AM EDT [facility] # 0.6 0.3 - 0.9 x10(3)/mcL 01/25/2025 10:27 AM EDT [facility] Eos# 0.1 0.0 - 0.5 x10(3)/mcL 01/25/2025 10:27 AM EDT [facility] # 0.0 0.0 - 0.1 x10(3)/mcL 01/25/2025 10:27 AM EDT [facility] Blood VENOUS BLOOD / Unknown Venipuncture / Unknown 01/25/2025 8:32 AM EDT 01/25/2025 8:32 AM EDT us Praneeth Fay MD HEMATOLOGY ORDERABLES Final Result [facility] [address] [facility] , [place] [address] documented in this encounter Visit Diagnoses Diagnosis Prostate cancer (HCC)- Primary Malignant neoplasm of prostate 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 pregabalin (LYRICA) 75 mg Oral Capsule Take 75 mg by mouth 3 times daily. added in this encounter Additional Health Concerns Assessment Noted Time A fall risk assessment has been complete d for the patient 03/18/2022 10:38 AM EDT documented as of this encounter Care Teams Marketing Summer Intern Relationship Specialty Start Date End Date Jim Collins MD [address] [place] [address] [address] [place] [address] PCP - General Psychiatry & Neurology-Neurology 12/21/11 Diana Metcalf MD [address] [facility] [address] [place] [address] Consulting Physician Radiology-Radiation Oncology 04/02/15 Praneeth Fay MD [address] [place] [address] Medical Oncologist Internal Medicine-Hematology and Oncology 09/14/22 documented as of this encounter
--- OUTSIDE RECORDS SUMMARY | 2025-01-29 11:43 | XMS_ITS | Encounter Summary ---
Author Organization [place] [address] Care Team Providers Care Parcel Post Truck Driver Name Role Phone Jim Collins MD Primary Care Provider [phone] Diana Metcalf MD Unavailable [phone] Praneeth Fay MD Unavailable [phone] Encounter Details Date Type Department Care Team (Latest Contact Info) Description 01/29/2025 11:43 AM EDT - 01/29/2025 11:59 PM EDT Hospital Encounter [facility] [address] [place], [place] [id number] History of colon cancer Discharge Disposition: Home [...] AM EST Appointment [place] [address] 04/30/2025 10:40 AM EST Appointment [facility] [place] [address] Praneeth Fay MD [address] [place] [address] documented as of this encounter Procedures Procedure Name Priority Date/Time Associated Diagnosis Comments CARCINOEMBRYONIC ANTIGEN Routine 025 11:45 AM EDT History of colon cancer documented in this encounter Results * CARCINOEMBRYONIC ANTIGEN (01/29/2025 11:45 AM EDT) CEA 3.78 ng/mL 01/29/2025 4:26 PM EDT [facility] Comment: Non-Smokers: <= 5.0 ng/mL Smokers: <= 10.0 ng/mL [facility] uses the Leo Eyelet Punch Operator CEA assay, which is intended to be [...] 11:45 AM EDT 01/29/2025 11:45 AM EDT us Praneeth Fay MD CHEMISTRY ORDERABLES Final Result [facility] [address] [facility] , [address] [place], [place] [id number] documented in this encounter Visit Diagnoses Diagnosis History of colon cancer Personal history of malignant neoplasm of large intestine documented in this encounter Additional Health Concerns Assessment Noted Time A fall risk assessment has been complete d for the patient 03/18/2022 10:38 AM EDT documented as of this encounter Care Teams Parcel Post Truck Driver Relationship Specialty Start Date End Date Jim Collins MD [address] [place] [address] [address] [place] [id number] PCP - General Psychiatry & Neurology-Neurology 12/21/11 Diana Metcalf MD [address] [facility] [address] [place] [address] Consulting Physician Radiology-Radiation Oncology 04/02/15 Praneeth Fay MD [address] [facility] [place], [place] [id number] Medical Oncologist Internal Medicine-Hematology and Oncology 09/14/22 documented as of this encounter
[2025-02-26 18:18] LABS: Anion Gap 12.7 mEq/L (5-15); Blood Urea Nitrogen 15 mg/dl (9-20); Calcium 9.1 mg/dl (8.4-10.2); Carbon Dioxide 30 mmol/L (22.0-30.0); Chloride 99 mmol/L (98-107); Creatinine,Serum 0.60 mg/dl (0.66-1.25); Estimated Glomerular Filt Rate 132 ml/min (>60); GFR (African American) 159 ML/MIN (>60); Glucose 85 mg/dl (74-100); Potassium 4.7 mmoL/L (3.5-5.1); Sodium 137 mmol/L (136-145)
[2025-02-26 20:55] LABS: Hepatitis C Ab Qual. W/ RFX NEGATIVE (Negative)
--- OUTSIDE RECORDS SUMMARY | 2025-02-26 23:04 | XMS_ITS | Clinical Summary ---
Author Organization [facility] Address [facility] [place] [address] Care Team Providers Care Hoop Punch Operator Helper Name Role Phone Pcp, No Primary Care Provider [phone] Source Comments This information has been disclosed [...] therelease of HIV test results or diagnoses. [id number] Allergies No known active allergies Medications [...] of Treatment Not on file Care Teams Hoop Punch Operator Helper Relationship Specialty Start Date End Date Pcp, No No Address PCP - General 02/16/13
--- OUTSIDE RECORDS SUMMARY | 2025-02-26 23:04 | XMS_ITS | Clinical Summary ---
Author Organization [email or web address] ([place], [place], [place], [place]) Address [address] [place] [address] Care Team Providers Care Automobile Body Customizer Name Role Phone Unavailable Primary Care Provider [...] (07/06/2022): Added automatically from request for surgery [id number] Resolved Problems Problem Noted Date Diagnosed Date [...] Date Cesar rded Speak language other than Monegasque at home Not on file 06/05/2023 Want [...] Cessation Counseling and Screening (12+) 07/05/2023 07/05/2022 Falls Risk Screening 05/23/2024 COVID-19 VACCINE (5 - 2024-2 6 season) 2025 09/28/2021, 03/16/2021, 06/24/2020, Additional history exists Influenza Vaccine (#1) 2025 , 04/06/2021, 02/20/2020 Respiratory Syncytial Virus (RSV) Adult [...] A1C 6.7 % 07/06/2022 11:49 AM EST [facility] Comment: Hemoglobin A1C levels are related to mean glucose during the preceding 2-3 months. Less than 7% demonstrates glycemic control in diabetic patients. Hemoglobin AlC % Suggested Diagnosis > or = 6.5 Diabetic 5.7 - 6.4 Prediabetic <5.7 Non-diabetic eAVG Glucose 145.59 mg/dL 07/06/2022 11:49 AM EST [facility] Blood Venipuncture / Unknown 07/06/2022 6:58 AM EST 07/06/2022 7:05 AM EST Hank Kirk PA-C LAB BLOOD ORDERABLES Final Result [facility] [address] [place] [address], [facility] [phone] from Last 3 Months or Most Recently Relevant to Health Maintenance Insurance [employer] MEDICARE PPO Advance Directives For more information, please contact: [phone] * Full Code (Latest Code Status on File) Date Activated Date Inactivated Comments 07/05/2022 7:59 PM 07/08/2022 6:39 PM
--- OUTSIDE RECORDS SUMMARY | 2025-02-26 23:07 | XMS_ITS | Encounter Summary ---
Author [place] [address] Care Team Providers Care Materials Research Engineer Name Role Phone Jim Collins MD Primary Care Provider [phone] Diana Metcalf MD Unavailable [phone] Praneeth Fay MD Unavailable [phone] Reason for Visit * Reason Onset Date Comments Schedule Appointment 01/28/2025 Encounter Details Date Type Department Care Team (Late st Contact Info) Description 01/28/2025 Telephone [facility] [place], [place] [phone] Praneeth Fay MD [address] [place], [place] [phone] Schedule Appointment Social History Tobacco Use Types Packs/Day Years [...] encounter Miscellaneous Notes * Telephone Encounter - Cindy Bradshaw CNA - 01/28/2025 2:52 PM EDT Scheduled * Telephone Encounter - Rowena Scott RN - 01/28/2025 2:43 PM EDT Please add lab apt prior to MD ANN tomorrow, needs Diann drawn. agreeable, will look on mychart for lab appointment time, no need to call. documented in this encounter Plan of Treatment Upcoming Encounters Date Type Department Care Team (Late st Contact Info) Description 04/23/2025 8:30 AM EST Appointment [place] [address] 04/30/2025 10:40 AM EST [facility]ointment [facility] [place] [address] Praneeth Fay MD [address] [place] [address] documented as of this encounter Visit Diagnoses Not on filedocumented in this encounter Additional Health Concerns Assessment Noted Time A fall risk assessment has been complete d for the patient 03/18/2022 10:38 AM EDT documented as of this encounter Care Teams Materials Research Engineer Relationship Specialty Start Date End Date Jim Collins MD [address] [place] [address] [address] [place] [phone] PCP - General Psychiatry & Neurology-Neurology 12/21/11 Diana Metcalf MD [address] [facility] [address] [place] [address] Consulting Physician Radiology-Radiation Oncology 04/02/15 Praneeth Fay MD 1 [place] [address] Medical Oncologist Internal Medicine-Hematology and Oncology 09/14/22 documented as of this encounter
--- OUTSIDE RECORDS SUMMARY | 2025-02-26 23:08 | XMS_ITS | Referral Summary ---
Author Organization [employer] ([place], [place], [place], [place]) Address [address] [place] [address] Care Team Providers Care Lead Java Programmer Name Role Phone Unavailable Primary Care Provider [...] (07/06/2022): Added automatically from request for surgery [id number] Resolved Problems Problem Noted Date Diagnosed Date [...] Date Cesar rded Speak language other than Bruneian at home Not on file 06/05/2023 Want [...] A1C 6.7 % 07/06/2022 11:49 AM EST [facility] Comment: Hemoglobin A1C levels are related to mean glucose during the preceding 2-3 months. Less than 7% demonstrates glycemic control in diabetic patients. Hemoglobin AlC % Suggested Diagnosis > or = 6.5 Diabetic 5.7 - 6.4 Prediabetic <5.7 Non-diabetic eAVG Glucose 145.59 mg/dL 07/06/2022 11:49 AM EST [facility] Blood Venipuncture / Unknown 07/06/2022 6:58 AM EST 07/06/2022 7:05 AM EST us Hank Kirk PA-C LAB BLOOD ORDERABLES Final Result [facility] [address] [phone] from Last 3 Months or Most Recently Relevant to Health Maintenance Insurance [facility] MEDICARE PPO Advance Directives For more information, please contact: [phone] * Full Code (Latest Code Status on File) Date Activated Date Inactivated Comments 07/05/2022 7:59 PM 07/08/2022 6:39 PM
--- OUTSIDE RECORDS SUMMARY | 2025-02-26 23:09 | XMS_ITS | Clinical Summary ---
Author Organization [facility] Address [address] [place] [address] Care Team Providers Care Medical Numerical Control Operator Name Role Phone Unavailable Primary Care Provider [...]
--- OUTSIDE RECORDS SUMMARY | 2025-02-26 23:09 | XMS_ITS ---
Author Organization [facility] Address 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 This can lead to higher drug levels of medications impacted by CYP2B6 such as efavirenz and sertraline. See Pharmacogenomics profile in Miscellaneous Reports tab (Chart Review > Misc Reports). 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
--- OUTSIDE RECORDS SUMMARY | 2025-02-26 23:09 | XMS_ITS | Continuity of Care Document ---
Author Organization [facility] Address [address] [place] [address] Phone Care Team Providers Care Cream Hauler Name Role Phone Jim Collins MD Primary Care Provider [phone] Diana Metcalf MD Unavailable [phone] Praneeth Fay MD Unavailable [phone] Encounters Date Type Department Care Team Description 01/29/2025 11:43 AM EDT - 01/29/2025 11:59 PM EDT Hospital Encounter [facility] [address] [place] [address] History of colon cancer Discharge Disposition: Home or Self Care 01/29/2025 9:57 AM EDT - 01/29/2025 10:11 AM EDT Hospital Encounter [facility] [place], [place] [id number] Praneeth Fay MD Prostate cancer (HCC) (Primary Dx); 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); History of colon cancer Discharge Disposition: Home or Self Care 01/29/2025 10:12 AM EDT - 01/29/2025 11:42 AM EDT [facility] [place] [place] [address] Praneeth Fay MD Prostate cancer (HCC) (Primary Dx); 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); History of colon cancer; History of chemotherapy; Chemotherapy-induced neuropathy Discharge Disposition: Home or Self Care 01/28/2025 Telephone [facility] [place] [address] Praneeth Fay MD Schedule Appointment 01/28/2025 8:49 AM EDT - 01/28/2025 11:59 [place] [address] Praneeth Fay MD Prostate cancer (HCC) Discharge Disposition: Home or Self Care 01/25/2025 8:16 AM EDT - 01/25/2025 11:59 PM EDT Hospital Encounter [facility] [address] [address] Prostate cancer (HCC) Discharge Disposition: Home or Self Care 12/11/2024 Orders Only [facility] [place] [address] Praneeth Fay MD 10/23/2024 Refill [facility] [place] [id number] Praneeth Fay MD Medication Refill 10/23/2024 10:00 AM EDT - 10/23/2024 10:15 AM EDT Hospital Encounter [place] [address] Prostate cancer (HCC) (Primary Dx); 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); History of colon cancer Discharge Disposition: Home or Self Care 10/23/2024 10:16 AM EDT - 10/23/2024 11:59 PM EDT Hospital Encounter [facility] [place] [address] Praneeth Fay MD Prostate cancer (HCC) (Primary Dx); 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); History of colon cancer; History of chemotherapy Discharge Disposition: Home or Self Care 10/18/2024 Orders Only [facility] [address] [place], [place] [address] Tisha Palacios Prostate cancer (HCC); 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); History of colon cancer 10/18/2024 8:21 AM EDT - 10/18/2024 11:59 PM EDT Hospital Encounter [facility] [address] [place] [address] Discharge Disposition: Home or Self Care 10/16/2024 Telephone [facility] [place] [address] Praneeth Fay MD Lab Orders (Needed labs for 10/23 follow up) 10/16/2024 Telephone [facility] [place] [address] Praneeth Fay MD Information Only (Confirming appointment ) 07/31/2024 Telephone [facility] [address] [place] [address] Shyam Mckeon CGC Results 07/30/2024 Telephone [facility] [address] [place] [address] Shyam Mckeon CGC Results 07/30/2024 Telephone [facility] [address] [place] [address] Shyam Mckeon CGC Results 07/27/2024 Orders Only [facility] [address] [place] [address] Provider, Historical 07/18/2024 Telephone [facility] [place] [address] Praneeth Fay MD Schedule Appointment 07/18/2024 Telephone [facility] [place] [address] Praneeth Fay MD Results 07/17/2024 Orders Only [facility] [address] [place] [address] Shyam Mckeon CGC 07/17/2024 9:46 AM EST - 07/17/2024 10:19 AM EST Hospital Encounter [place] [address] Prostate cancer (HCC) (Primary Dx); Encounter for genetic screening; 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); History of colon cancer Discharge Disposition: Home or Self Care 07/17/2024 10:20 AM EST - 07/17/2024 11:59 PM EST Hospital Encounter [facility] [place] [address] Praneeth Fay MD Prostate cancer (HCC) (Primary Dx); 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); History of colon cancer; History of chemotherapy Discharge Disposition: Home or Self Care 07/16/2024 7:29 AM EST - 07/16/2024 11:59 PM [place] [address] Praneeth Fay MD Prostate cancer (HCC); History of colon cancer Discharge Disposition: Home or Self Care 07/13/2024 Orders Only [facility] [place] [address] Praneeth Fay MD 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) (Primary Dx); History of colon cancer 04/17/2024 10:00 AM EST - 04/17/2024 11:59 PM EST Hospital Encounter [facility] [address] [place] [address] Shyam Mckeon CGC Encounter for genetic screening (Primary Dx); Prostate cancer (HCC) Discharge Disposition: Home or Self Care 04/05/2024 Telephone [facility] [address] [place] [address] Idalia Stock, Clerical Staff Schedule Appointment (Cancer) 03/29/2024 Telephone [facility] [address] [place] [address] Idalia Stock, Clerical Staff Schedule Appointment (Cancer) 03/29/2024 7:42 AM EST - 03/29/2024 11:59 PM EST Hospital Encounter [facility] [place] [address] Vanesa Salas APRN Prostate cancer (HCC) (Primary Dx) Discharge Disposition: Home or Self Care 03/27/2024 11:15 AM EST - 03/27/2024 11:35 AM EST Hospital Encounter [place] [address] Prostate cancer (HCC); History of colon cancer Discharge Disposition: Home or Self Care 03/27/2024 11:36 AM EST - 03/27/2024 11:59 PM EST Hospital Encounter [facility] [place] [address] Praneeth Fay MD Prostate cancer (HCC) (Primary Dx); 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 [address] Ban Kee MD 03/15/2024 1:20 PM EDT - 03/15/2024 11:59 PM EDT Hospital Encounter [facility] [address] [place] [address] Braden Hartley MD Abnormal finding on imaging; Screening for colon cancer Discharge Disposition: Home or Self Care 02/09/2024 Telephone [facility] [place] [address] Praneeth Fay MD Patient Question (Dr. 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); History of colon cancer Discharge Disposition: Home or Self Care 02/06/2024 10:40 AM EDT - 02/06/2024 11:59 PM EDT Hospital Encounter [facility] [place] [address] Praneeth Fay MD Prostate cancer (HCC) (Primary Dx); 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); History of colon cancer; History of chemotherapy Discharge Disposition: Home or Self Care 02/01/2024 Travel 02/01/2024 8:58 AM EDT - 02/01/2024 11:59 PM EDT Hospital Encounter [facility] [place] [id number] Praneeth Fay MD 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); History of colon cancer Discharge Disposition: Home or Self Care 12/25/2023 Orders Only [facility] [place] [address] Praneeth Fay MD 10/07/2023 7:22 AM EDT - 10/07/2023 7:40 AM EDT Hospital Encounter [facility] [place] [address] Diana Metcalf MD Prostate cancer (HCC) (Primary Dx); 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) Discharge Disposition: Home or Self Care 10/07/2023 7:41 AM EDT - 10/07/2023 11:59 PM EDT Hospital Encounter [facility] [place] [address] Diana Metcalf MD Sullivan, Megan M, NP Prostate cancer (HCC) (Primary Dx); 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); History of colon cancer; History of chemotherapy; Port-A-Cath in place Discharge Disposition: Home or Self Care 09/27/2023 9:03 AM EDT - 09/27/2023 11:59 PM EDT Hospital Encounter [facility] [place] [address] Diana Metcalf MD Holtzapfel, Catherine Ann, APRN Prostate cancer (HCC) (Primary Dx); Malignant neoplasm of ileocecal valve (HCC) Discharge Disposition: Home or Self Care 09/05/2023 Travel 09/05/2023 1:56 PM EDT - 09/05/2023 11:59 PM EDT [facility] [place] [address] Armen Vinson MD Kalakonda, Aditya, MD Alam, Masroor, MD Bleser, Jennifer M, CRNA Malignant neoplasm of ileocecal valve (HCC); History of colon resection Discharge Disposition: Home or Self Care 09/05/2023 3:12 PM EDT Anesthesia Event [facility] [place] [address] Rickey Lemus MD Powell, Jeanne, AUTHORIZATION COORDINATOR 07/22/2023 Telephone [facility] [address], [address] [place] [address] Armen Vinson MD Colonoscopy 07/20/2023 Telephone [facility] [place] [address] Praneeth Fay MD Results 07/19/2023 9:13 AM EST - 07/19/2023 9:28 AM EST Hospital Encounter [facility] [address] Diana Metcalf MD Prostate cancer (HCC) (Primary Dx); History of colon cancer Discharge Disposition: Home or Self Care 07/19/2023 9:29 AM EST - 07/19/2023 11:59 PM EST Hospital Encounter [facility] [place] [address] Diana Metcalf MD Kotlove, Matthew J, MD Prostate cancer (HCC) (Primary Dx); 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); History of colon cancer Discharge Disposition: Home or Self Care 07/18/2023 9:27 AM EST - 07/18/2023 11:59 PM EST Hospital Encounter [facility] [place] [address] Praneeth Fay MD History of colon cancer; Prostate cancer (HCC); 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) Discharge Disposition: Home or Self Care 05/10/2023 11:07 AM EST - 05/10/2023 11:28 AM EST Hospital Encounter [facility] [place] [address] Diana Metcalf MD Prostate cancer (HCC) (Primary Dx); History of colon cancer Discharge Disposition: Home or Self Care 05/10/2023 11:29 AM EST - 05/10/2023 11:59 PM EST Hospital Encounter [facility] [place] [address] Diana Metcalf MD Ott, Emilee Ann, APRN Prostate cancer (HCC) (Primary Dx); History of colon cancer; 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); Chemotherapy-induced neuropathy; Port-A-Cath in place Discharge Disposition: Home or Self Care 03/14/2023 7:45 AM EDT - 03/14/2023 11:59 PM EDT Hospital Encounter [facility] [place] [address] Diana Metcalf MD Holtzapfel, Catherine Ann, APRN Prostate cancer (HCC) (Primary Dx); Malignant neoplasm of ileocecal valve (HCC) Discharge Disposition: Home or Self Care 02/16/2023 Patient Outreach [facility] [place] [address] Priscilla Coburn, patient support partner Nurse Navigation (Onc NN exit interview/close) 02/08/2023 1:36 PM EDT - 02/08/2023 1:48 PM EDT Hospital Encounter [facility] [place] [phone] Diana Metcalf MD Prostate cancer (HCC) (Primary Dx); Malignant neoplasm of ileocecal valve (HCC) Discharge Disposition: Home or Self Care 02/08/2023 1:49 PM EDT - 02/08/2023 11:59 PM EDT Hospital Encounter [facility] [place] [address] Diana Metcalf MD Kotlove, Matthew J, MD History of colon cancer (Primary Dx); Prostate cancer (HCC); 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) Discharge Disposition: Home or Self Care 02/07/2023 Orders Only [facility] [place], [place] [id number] Praneeth Fay MD Prostate cancer (HCC) (Primary Dx); Malignant neoplasm of ileocecal valve (HCC) 02/04/2023 Orders Only [facility] [place] [address] Praneeth Fay MD Prostate cancer (HCC) (Primary Dx) 12/30/2022 Telephone [facility] [place] [address] Praneeth Fay MD 12/28/2022 Patient Outreach [facility] [place] [phone] Dania Zuniga, patient support partner Nurse Navigation (outreach) 12/28/2022 Travel 12/28/2022 9:00 AM EDT - 12/28/2022 11:59 PM EDT Hospital Encounter [facility] [place] [address] Diana Metcalf MD Kotlove, Matthew J, MD 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); Prostate cancer (HCC) 11/25/2022 Specialty Pharmacy [facility] [address] [place] [address] [id number] [phone] Sienna Goncalves CPhT Pharmacy Oncology Management (Capecitabine) 11/25/2022 Refill [facility] [place] [address] Praneeth Fay MD Medication Refill 11/16/2022 Travel 11/16/2022 9:32 AM EDT - 11/16/2022 9:48 AM EDT Hospital Encounter [place] [address] Diana Metcalf MD 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) Discharge Disposition: Home or Self Care 11/16/2022 9:49 AM EDT - 11/16/2022 10:29 AM EDT Hospital Encounter [facility] [place] [address] Diana Metcalf MD Kotlove, Matthew J, MD 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); 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); Prostate cancer (HCC); Encounter for antineoplastic chemotherapy; Chemotherapy-induced neuropathy Discharge Disposition: Home or Self Care 11/16/2022 10:30 AM EDT - 11/16/2022 11:59 PM EDT Hospital Encounter [facility] [place] [address] Diana Metcalf MD 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) Discharge Disposition: Home or Self Care 11/04/2022 Specialty Pharmacy [facility] [address] [place] [address] Sienna Goncalves CPhT Pharmacy Oncology Management (Capecitabine) 11/04/2022 Refill [facility] [place] [address] Praneeth Fay MD Medication Refill 10/26/2022 Travel 10/26/2022 10:22 AM EDT - 10/26/2022 10:59 AM EDT Hospital Encounter [facility] [place] [address] Metcalf, Pratish H, MD Catherine, Flori Rowan, AUTHORIZATION COORDINATOR 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); 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); Prostate cancer (HCC); Encounter for antineoplastic chemotherapy; Maculopapular rash Discharge Disposition: Home or Self Care 10/26/2022 11:00 AM EDT - 10/26/2022 11:59 PM EDT [facility] [place] [address] Diana Metcalf MD 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) Discharge Disposition: Home or Self Care 10/26/2022 10:06 AM EDT - 10/26/2022 10:21 AM EDT Hospital Encounter [facility] [place] [phone] Diana Metcalf MD 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) Discharge Disposition: Home or Self Care 10/21/2022 Patient Outreach [facility] [place] [address] Praneeth Fay MD Oncology Nurse Navigation (Care coordination) 10/21/2022 Telephone [facility] [place] [address] Praneeth Fay MD Medication Refill (Xeloda) 10/19/2022 Specialty Pharmacy [facility] [address] [place], [place] [id number] Sienna Goncalves CPhT Pharmacy Oncology Management (Capecitabine) 10/19/2022 Refill [facility] [place] [phone] Praneeth Fay MD Medication Refill 10/07/2022 Telephone [facility] [place] [address] Praneeth Fay MD Patient Question (patient is asking for a call from the clinic nurse to see about getting a blood test) 10/05/2022 Travel 10/05/2022 10:00 AM EDT - 10/05/2022 11:59 PM EDT Hospital En[facility] [place] [address] Diana Metcalf MD 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) Discharge Disposition: Home or Self Care 10/05/2022 9:30 AM EDT - 10/05/2022 9:39 AM EDT Hospital Encounter [place] [address] Diana Metcalf MD 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) Discharge Disposition: Home or Self Care 10/05/2022 9:40 AM EDT - 10/05/2022 9:59 AM EDT Hospital Encounter [facility] [place] [address] Diana Metcalf MD Kotlove, Matthew J, MD Prostate cancer (HCC) (Primary Dx); 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); Malignant neoplasm of ileocecal valve (HCC); Encounter for antineoplastic chemotherapy Discharge Disposition: Home or Self Care 09/30/2022 Telephone [facility] [place] [address] Praneeth Fay MD Other (Calling with [employer] for Nurse) 09/29/2022 Specialty Pharmacy [facility] [address] [place] [address] Kelley Barakat, [facility] Pharmacy Oncology Management; Pharmacy Reassessment (capecitabine) 09/28/2022 Specialty Pharmacy [facility] [address] [place] [address] Kacey Cordova, [facility] Pharmacy Oncology Management (Xeloda ) 09/28/2022 Refill [facility] [place] [phone] Praneeth Fay MD Medication Refill 09/21/2022 Travel 09/21/2022 Telephone [facility] [place] [address] [place] [address] Selin Keller, RT Follow-up 09/21/2022 10:45 AM EDT - 09/21/2022 10:59 AM EDT Hospital Encounter [place] [address] Diana Metcalf MD Discharge Disposition: Home or Self Care 09/21/2022 11:00 AM EDT - 09/21/2022 11:59 PM EDT Hospital Encounter [facility] [place] [address] Diana Metcalf MD Ott, Emilee Ann, APRN 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); 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); Prostate cancer (HCC); Encounter for antineoplastic chemotherapy; CINV (chemotherapy-induce d nausea and vomiting); Chemotherapy induced diarrhea Discharge Disposition: Home or Self Care 09/17/2022 Telephone [facility] [place] [address] Rebecca Merritt RN Follow-up (First chemotherapy follow up call) 09/14/2022 Patient Outreach [facility] [place] [address] Dania Zuniga RN Oncology Nurse Navigation (Face to face) 09/14/2022 Travel 09/14/2022 10:00 AM EDT - 09/14/2022 11:59 PM EDT Hospital Encounter [facility] [place] [address] Diana Metcalf MD 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) Discharge Disposition: Home or Self Care 09/14/2022 9:13 AM EDT - 09/14/2022 9:29 AM EDT Hospital Encounter [place] [address] Diana Metcalf MD 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) Discharge Disposition: Home or Self Care 09/14/2022 9:30 AM EDT - 09/14/2022 9:59 AM EDT Hospital Encounter [facility] [place] [address] Diana Metcalf MD Kotlove, Matthew J, MD 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 He has his first tx tomorrow.) 09/09/2022 Orders Only [facility] [place] [address] Praneeth Fay MD Prostate cancer (HCC) (Primary Dx) 09/09/2022 Specialty Pharmacy [facility] [address] [place] [address] Kelley Barakat, [facility] Pharmacy Oncology Management; Pharmacy Initial Assessment (capecitabine) 09/08/2022 Specialty Pharmacy [facility] [address] [place], [place] [id number] Sabine Suresh [facility] Pharmacy Oncology Management (Xeloda) 09/08/2022 Orders Only [facility] [place] [address] Kelley Barakat, [facility] Malignant neoplasm of ileocecal valve (HCC) 09/08/2022 Patient Outreach [facility] [place] [address] Praneeth Fay MD Oncology Nurse Navigation (Results follow up) 09/07/2022 9:01 AM EDT - 09/07/2022 11:59 PM EDT [facility] [place] [address] Praneeth Fay MD Young, Van An, MD Neoplasm; Prostate cancer (HCC); Malignant neoplasm of ileocecal valve (HCC) Discharge Disposition: Home or Self Care 09/06/2022 Travel 09/06/2022 9:28 AM EDT - 09/06/2022 11:59 PM EDT Hospital Encounter [facility] [address] [place] [address] Malignant neoplasm of ileocecal valve (HCC); Prostate cancer (HCC); Neoplasm Discharge Disposition: Home or Self Care 08/31/2022 Abstract [facility] [address] [place] [address] Luke Dahl, PharmD CYP2B6 intermediate metabolizer (HCC); [id number] ultrarapid metabolizer (HCC) 08/31/2022 Orders Only [facility] [address] [place] [address] Savannah Olmstead, Clerical Staff Prostate cancer (HCC) (Primary Dx) 08/27/2022 Patient Outreach [facility] [place] [address] Dania Zuniga, patient support partner Nurse Navigation (Care coordination) 08/27/2022 Travel 08/27/2022 12:40 PM EDT - 08/27/2022 11:59 PM EDT Hospital Encounter [facility] [place] [address] Diana Metcalf MD 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) Discharge Disposition: Home or Self Care 08/27/2022 12:26 PM EDT - 08/27/2022 12:39 PM EDT Hospital Encounter [facility] [address] Diana Metcalf MD Malignant neoplasm of ileocecal valve (HCC); Prostate cancer (HCC) Discharge Disposition: Home or Self Care 08/26/2022 Orders Only [facility] [place] [address] Praneeth Fay MD 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) 08/26/2022 Orders Only [facility] [place] [address] [place] [address] Selin Keller, RT Prostate cancer (HCC) (Primary Dx); Neoplasm 08/26/2022 Telephone [facility] [place] [address] Praneeth Fay MD Schedule Appointment 08/26/2022 Telephone [facility] [place] [address] [place] [address] Regina Parisi, Clerical Staff Procedure (PAC Insert ) 08/26/2022 Telephone [facility] [place] [address] Praneeth Fay MD Schedule Appointment 08/25/2022 Telephone [facility] [place] [address] Praneeth Fay MD 08/24/2022 Patient Outreach [facility] [place] [address] Dania Zuniga, patient support partner Nurse Navigation (Face to face) 08/24/2022 Travel 08/24/2022 3:17 PM EDT - 08/24/2022 11:59 PM EDT Hospital Encounter [facility] [place] [address] Diana Metcalf MD Kotlove, Matthew J, MD 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); Prostate cancer (HCC); 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) Discharge Disposition: Home or Self Care 08/23/2022 Telephone [facility] [place] [address] Praneeth Fay MD New Patient 08/20/2022 Orders Only [facility] [place] [address] Vanesa Salas APRN Prostate cancer (HCC) (Primary Dx); Malignant neoplasm of ileocecal valve (HCC) 08/19/2022 7:41 AM EDT - 08/19/2022 11:59 PM EDT Hospital Encounter [facility] [place] [address] Diana Metcalf MD Holtzapfel, Catherine Ann, APRN Prostate cancer (HCC) (Primary Dx); Malignant neoplasm of ileocecal valve (HCC) Discharge Disposition: Home or Self Care 08/12/2022 7:46 AM EDT - 08/12/2022 11:59 PM EDT Hospital Encounter [facility] [place] [address] Diana Metcalf MD Holtzapfel, Catherine Ann, APRN Prostate cancer (HCC) (Primary Dx); Malignant neoplasm of ileocecal valve (HCC) Discharge Disposition: Home or Self Care 08/11/2022 8:46 AM EDT - 08/11/2022 11:59 PM EDT Hospital Encounter [facility] [place] [address] Diana Metcalf MD Holtzapfel, Catherine Ann, APRN Prostate cancer (HCC) (Primary Dx); Malignant neoplasm of ileocecal valve (HCC) Discharge Disposition: Home or Self Care 08/08/2022 Travel 07/19/2022 Travel 07/19/2022 9:57 AM EST - 07/19/2022 11:59 PM EST Hospital Encounter [facility] [place] [address] Diana Metcalf MD Holtzapfel, Catherine Ann, APRN Prostate cancer (HCC) (Primary Dx); Rising PSA level Discharge Disposition: Home or Self Care 07/15/2022 Travel 07/15/2022 10:12 AM EST - 07/15/2022 11:53 AM EST Hospital Encounter [facility] [address] [place] [address] Prostate cancer (HCC) Discharge Disposition: Home or Self Care 07/15/2022 11:54 AM EST - 07/15/2022 11:59 PM EST Hospital Encounter [facility] [place] [address] Diana Metcalf MD Prostate cancer (HCC) Discharge Disposition: Home or Self Care 07/12/2022 Travel 03/18/2022 Travel 03/18/2022 11:00 AM EDT Office Visit [facility] [address] [place] [address] [address] [place] [phone] Sarina Huynh APRN Asymptomatic bilateral carotid artery stenosis (Primary Dx); Essential hypertension; Type 2 diabetes mellitus with other circulatory complication, without long-term current use of insulin (HCC) 03/18/2022 9:56 AM EDT - 03/18/2022 11:59 PM EDT Hospital Encounter [facility] [address] [place] [address] [address] [place] [address] Kumar Wilhelm MD Asymptomatic bilateral carotid artery stenosis Discharge Disposition: Home or Self Care 01/06/2022 Travel 01/06/2022 9:53 AM EDT - 01/06/2022 11:59 PM EDT Hospital Encounter [facility] [place] [address] Diana Metcalf MD Prostate cancer (HCC) (Primary Dx) Discharge Disposition: Home or Self Care 01/04/2022 Travel 01/04/2022 11:05 AM EDT - 01/04/2022 11:59 PM EDT Hospital Encounter [facility] [place] Dorsey Marlin0 [place] [address] Encounter for follow-up examination after radiotherapy for malignant neoplasm; Personal history of prostate cancer Discharge Disposition: Home or Self Care 12/03/2021 Telephone [facility] [address] [facility] [address] [place] [phone] Kumar Wilhelm MD Reschedule 11/13/2021 Travel 11/13/2021 12:19 PM EDT - 11/13/2021 11:59 PM EDT Hospital Encounter [facility] Physical Therapy [place] [address] Nelson Ribera, PT Lumbar radiculopathy (Primary Dx) Discharge Disposition: Home or Self Care 11/03/2021 Travel 11/03/2021 9:19 AM EDT - 11/03/2021 11:59 PM EDT Hospital Encounter [facility] Physical Therapy RoslynCONNIE Hewitt [address] Nelson Ribera, PT Lumbar radiculopathy (Primary Dx) Discharge Disposition: Home or Self Care 10/28/2021 Plan of Care Documentation [facility] Physical Therapy [place] [address] 10/28/2021 Travel 10/28/2021 8:41 AM EDT - 10/28/2021 11:59 PM EDT Hospital Encounter [facility] Physical Therapy [place] [address] [place] [address] Nelson Ribera, LUCRECIA Lumbar radiculopathy Discharge Disposition: Home or Self Care 07/03/2021 Travel 07/03/2021 11:29 AM EST - 07/03/2021 11:59 PM EST Hospital Encounter [facility] [place] [address] Vanesa Salas APRN Encounter for follow-up examination after radiotherapy for malignant neoplasm (Primary Dx); Personal history of prostate cancer Discharge Disposition: Home or Self Care 06/29/2021 Travel 06/29/2021 8:22 AM EST - 06/29/2021 11:59 PM EST Hospital Encounter [facility] [address] [place] [address] Discharge Disposition: Home or Self Care 06/29/2021 Orders Only [facility] [address] [place], [place] [address] Amy Chang, RT Prostate cancer (HCC) 03/12/2021 Travel 03/12/2021 9:00 AM EDT Office Visit [facility] [address] [place] [address] [place] [phone] Kumar Wilhelm MD Asymptomatic bilateral carotid artery stenosis (Primary Dx); Essential hypertension; Type 2 diabetes mellitus with other circulatory complication, without long-term current use of insulin (HCC); Personal history of prostate cancer; Stenosis of right subclavian artery 11/26/2020 3:25 PM EDT - 11/26/2020 11:59 PM EDT Hospital Encounter [facility] [place] [address] Vanesa Salas APRN Prostate cancer (HCC) (Primary Dx) Discharge Disposition: Home or Self Care 11/13/2020 Telephone [facility] [place] [address] Diana Metcalf MD Other (Appointment to go over results) 11/12/2020 Travel 11/12/2020 8:05 AM EDT - 11/12/2020 11:59 PM EDT Hospital Encounter [facility] [place] [address] Prostate cancer (HCC); Rising PSA level Discharge Disposition: Home or Self Care 05/08/2020 2:24 PM EST - 05/08/2020 11:59 PM EST Hospital Encounter [facility] [address] [place] [address] Vanesa Salas APRN Prostate cancer (HCC) (Primary Dx); Rising PSA level Discharge Disposition: Home or Self Care 05/06/2020 8:17 AM EST - 05/06/2020 11:59 PM EST Hospital Encounter [facility] [place] [address] Prostate cancer (HCC) Discharge Disposition: Home or Self Care 05/06/2020 Travel 10/25/2019 11:25 AM EDT - 10/25/2019 11:59 PM EDT Hospital Encounter [facility] Cancer [facility] [place] [address] Diana Metcalf MD Prostate cancer (HCC) (Primary Dx) Discharge Disposition: Home or Self Care 10/19/2019 7:55 AM EDT - 10/19/2019 11:59 PM EDT Hospital Encounter [facility] [place] s[place]wald [address] Encounter for follow-up examination after radiotherapy for malignant neoplasm; Personal history of prostate cancer; Rising PSA following treatment for malignant neoplasm of prostate Discharge Disposition: Home or Self Care 10/19/2019 Travel 10/18/2019 Travel 09/20/2019 Telephone [facility] [place] [address] Lynne Cruz RN 04/17/2019 9:38 AM EST - 04/17/2019 11:59 PM EST Hospital Encounter [facility] [place] [address] HolVanesa wallace APRN Encounter for follow-up examination after radiotherapy for malignant neoplasm (Primary Dx); Personal history of prostate cancer; Rising PSA following treatment for malignant neoplasm of prostate Discharge Disposition: Home or Self Care 04/13/2019 8:47 AM EST - 04/13/2019 11:59 PM EST Hospital Encounter [facility] Mar[place]0 [place] [address] 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) Discharge Disposition: Home or Self Care 10/10/2018 10:20 AM EDT - 10/10/2018 11:59 PM EDT Hospital Encounter [facility] [place] [address] Diana Metcalf MD 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) (Primary Dx) Discharge Disposition: Home or Self Care 10/06/2018 8:25 AM EDT - 10/06/2018 11:59 PM EDT Hospital Encounter [facility] [place] [address] Encounter for follow-up examination after radiotherapy for malignant neoplasm; Personal history of prostate cancer Discharge Disposition: Home or Self Care 04/12/2018 8:20 AM EST - 04/12/2018 11:59 PM EST Hospital Encounter [facility] [place] [address] Vanesa Salas APRN Encounter for follow-up examination after radiotherapy for malignant neoplasm (Primary Dx); Personal history of prostate cancer Discharge Disposition: Home or Self Care 04/10/2018 8:47 AM EST - 04/10/2018 11:59 PM EST Hospital Encounter [facility] [place] [address] Encounter for follow-up examination after radiotherapy for malignant neoplasm; Personal history of prostate cancer Discharge Disposition: Home or Self Care 10/07/2017 9:33 AM EDT - 10/07/2017 11:59 PM EDT Hospital Encounter [facility] [place] [address] Vanesa Salas APRN Encounter for follow-up examination after radiotherapy for malignant neoplasm (Primary Dx); Personal history of prostate cancer Discharge Disposition: Home or Self Care 10/04/2017 1:17 PM EDT - 10/04/2017 11:59 PM EDT Hospital Encounter [facility] [address] [place] [address] Encounter for follow-up examination after radiotherapy for malignant neoplasm; Personal history of malignant neoplasm of prostate Discharge Disposition: Home or Self Care 03/16/2017 1:32 PM EDT - 03/16/2017 11:59 PM EDT Hospital Encounter [facility] [place] [address] Vanesa Salas APRN Encounter for follow-up examination after radiotherapy for malignant neoplasm (Primary Dx); Personal history of malignant neoplasm of prostate Discharge Disposition: Home or Self Care 02/28/2017 7:40 AM EDT - 02/28/2017 11:59 PM EDT Hospital Encounter [facility] [address] [place] [address] 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 [address] [place] [phone] Diana Metcalf MD Other 01/16/[address] [facility] [address] [place] [phone] Diana Metcalf MD History of prostate cancer (Primary Dx) 01/16/[address] [facility] [address] [place] [address] Diana Metcalf MD Prostate cancer (HCC) 01/09/[address] [facility] [address] [place] [address] Diana Metcalf MD Other 07/22/2015 10:15 AM EST Office Visit [facility] [address] [place] [phone] Diana Metcalf MD Prostate cancer (HCC) (Primary Dx) 07/17/2015 3:41 PM EST - 07/17/2015 11:59 PM EST Hospital Encounter [facility] 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 [address] [place] [address] Diana Metcalf MD Other (Medical Records requested) 04/02/[address] [facility] [address] [place] [phone] Diana Metcalf MD Other (Medical Records requested) 04/02/[address] [facility] [address] [place] [phone] Diana Metcalf MD Other (Medical Records request) 04/02/[address] [facility] [address] [place] [facility] [place] [place] [phone] Diana Metcalf MD Other (New patient appointment. pending sale to [facility]) 04/02/2015 Telephone [facility] Central Scheduling [facility] [place] [address] Diana Metcalf MD Other 12/22/2011 7:26 AM EDT - 12/22/2011 8:56 AM EDT Hospital Encounter [place] [facility] [place] [address] Ismael Collins MD Chest pain; Chest discomfort; Dizziness Discharge Disposition: Home or Self Care 12/22/2011 8:57 AM EDT - 12/22/2011 11:59 PM EDT Hospital Encounter [facility] [place] [address] Ismael Collins MD Chest pain; Chest discomfort; Dizziness Discharge Disposition: Home or Self Care 12/22/2011 7:25 AM EDT Hospital Encounter [facility] [address] [place] [address] Ismael Collins MD Chest pain; Chest discomfort; Dizziness Discharge Disposition: Home or Self Care 12/22/2011 7:25 AM EDT Hospital Encounter [facility] [place] [address] Ismael Collins MD Chest pain; Chest discomfort; [...] plastic wrap 30 g 2 5 Active pregabalin (LYRICA) 75 mg Oral Capsule Take 75 mg by mouth 3 times daily. 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 This can lead to higher drug levels of medications impacted by CYP2B6 such as efavirenz and sertraline. See Pharmacogenomics profile in Miscellaneous Reports tab (Chart Review > Misc Reports). 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 Overview (08/31/2022): [id number] PROB: Patient is predicted to have MDO4K69 Ultra-rapid Metabolizer activity (IEL8U07 *17/*17), and therefore, patient is predicted to have increased XRJ4Y69 metabolism of medications impacted by VWH9X05 such as SSRI's (citalopram, escitalopram and sertraline), [...] Paternal Grandmother (Age 99) Paternal Uncle 1 d.OK Paternal Uncle 2 d.OK Sister 1 (Age 58) d.cancer Sister 2 Alive Sister 3 d.infancy Sister 4 Alive Sister 5 Alive Son Alive Social History Smoking Status as of 02/26/2025 Tobacco Use Types Packs/Day Years Used Date [...] Mass Index 28.89 01/29/2025 10:07 AM EDT Plan of Treatment Upcoming Encounters Date Type Department Care Team (Late st Contact Info) Description 04/23/2025 8:30 AM EST Appointment [facility] [place] [address] 04/30/2025 10:40 AM EST Appointment [facility] [place] [address] Praneeth Fay MD [address] [place] [address] Medical Devices Implanted Type Area Firesetter Device Identifier Shelf Expiration Date Model / Serial / Lot Port Chuck Ti Vortex 8fr W/Attachable Bioflo Cath-09/07/2022 Implanted:Qty: 1 on 09/07/2022 by Yariel Wood MD Right: Chest Wall [employer] [id number] DVI0 / / [id number] Procedures Procedure Name Priority Date/Time Associated Diagnosis Comments CARCINOEMBRYONIC ANTIGEN Routine 01/29/2025 11:45 AM EDT History of colon cancer MISCELLANEOUS LAB Routine 01/29/2025 10: 10 AM EDT Prostate cancer (HCC) 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) History of colon cancer CT CHEST ABDOMEN PELVIS W CONTRAST Routine 01/28/2025 9:19 AM EDT Prostate cancer (HCC) PROSTATE SPECIFIC ANTIGEN (TUMOR MARKER) Routine 01/25/2025 8:32 AM EDT Prostate cancer (HCC) COMPREHENSIVE METABOLIC PANEL STAT 01/25/2025 8:32 AM EDT Prostate cancer (HCC) CBC WITH DIFF STAT 01/25/2025 8:32 AM EDT Prostate cancer (HCC) MISCELLANEOUS LAB Routine 10/23/2024 10: 18 AM [...] 07/15/2022 10:19 AM EST Prostate cancer (HCC) CT US CAROTID DUPLEX BILATERAL Routine 03/18/2022 10:58 [...] Chest pain Chest discomfort Dizziness Results * CARCINOEMBRYONIC ANTIGEN (01/29/2025 11:45 AM EDT) Only the most recent of10 resultswithin the time period is included. CEA 3.78 ng/mL 01/29/2025 4:26 PM EDT [employer] Comment: Non-Smokers: <= 5.0 ng/mL Smokers: <= 10.0 ng/mL [employer] uses the [employer] CEA assay, which is intended to be [...] CHEMISTRY ORDERABLES Final Result Performing Organization Address City/[facility]/ZIP Co de Phone Number [facility] [address] [facility], [place] [address] * MISCELLANEOUS LAB (01/29/2025 10:10 AM EDT) Only the most recent of2 resultswithin the time period is included. MISC COMMENT Diann 01/30/2025 7:05 AM EDT [facility] Blood VENOUS BLOOD / Unknown Port / Unknown 01/29/2025 10:10 AM EDT 01/30/2025 7:04 AM EDT Praneeth Fay MD HEMATOLOGY ORDERABLES Final Result Performing Organization Address [facility] Co de Phone Number [facility] [address] [place] [address] [phone] * CT CHEST ABDOMEN PELVIS W CONTRAST (01/28/2025 9:19 AM EDT) Only the most recent of3 resultswithin the time period is included. Anatomical [...] WITH CONTRAST, 01/28/2025 9:19 AM CLINICAL HISTORY: G37-Evkioawbm neoplasm of prostate (HCC)-ICD-10-CM. COMPARISON: CT 07/16/2024; [...] WITH CONTRAST, 01/28/2025 9:19 AM CLINICAL HISTORY: H16-Dqqtdhena neoplasm of prostate (HCC)-ICD-10-CM. COMPARISON: CT 07/16/2024; [...] IMG CT ORDERABLES Final Res ult * (ABNORMAL) CBC WITH DIFF (01/25/2025 8:32 AM EDT) Only the most recent of17 resultswithin the time period is included. WBC 4.2 3.7 - 10.3 x10(3)/mcL 01/25/2025 10:27 AM EDT [facility] RBC 4.79 4.60 - 6.10 x10(6)/mcL 01/25/2025 10:27 AM EDT [facility] Hgb 14.7 13.7 - 17.5 g/dL 01/25/2025 10:27 AM EDT [facility] Hct 45.8 40.0 - 51.0 % 01/25/2025 10:27 AM EDT [facility] MCV 95.6 80.0 - 100.0 fL 01/25/2025 10:27 AM EDT [facility] MCH 30.7 26.0 - 34.0 pg 01/25/2025 10:27 AM EDT [facility] MCHC 32.1 30.7 - 35.5 g/dL 01/25/2025 10:27 AM EDT [facility] RDW 12.1 <=14.9 % 01/25/2025 10:27 AM EDT [facility] Platelet 238 155 - 369 x10(3)/mcL 01/25/2025 10:27 AM EDT [facility] MPV 10.2 8.8 - 12.5 fL 01/25/2025 10:27 AM EDT [facility] Neut Percent 61.9 % 01/25/2025 10:27 AM EDT [facility] Comment:Neutrophils equals s egs plus bands Imm Gran% 0.2 % 01/25/2025 10:27 AM EDT [facility] Comment:Automated count of m etamyelocytes, myelocytes and promyelocytes. Lymph Percent 20.6 % 01/25/2025 10:27 AM EDT [facility] [place] Percent 13.7 % 01/25/2025 10:27 AM EDT [facility] Eos Percent 2.9 % 01/25/2025 10:27 AM EDT [facility], [facility] Baso Percent 0.7 % 01/25/2025 10:27 AM EDT [facility], [facility] Neut # 2.6 1.6 - 6.1 x10(3)/[facility] 01/25/2025 10:27 AM EDT [facility] Comment:Neutrophils equals s egs plus bands IMMGRAN# 0.0 0.0 - 0.1 x10(3)/[facility] 01/25/2025 10:27 AM EDT [facility] [employer], [facility] Comment:Automated count of m etamyelocytes, myelocytes and promyelocytes. An absolute IG <0.1 is reported as 0.0. Lymph # 0.9(L) 1.2 - 3.9 x10(3)/[facility] 01/25/2025 10:27 AM EDT [facility], [facility] [place] # 0.6 0.3 - 0.9 x10(3)/[facility] 01/25/2025 10:27 AM EDT [facility], [facility] Eos# 0.1 0.0 - 0.5 x10(3)/[facility] 01/25/2025 10:27 AM EDT [facility], [facility] Baso # 0.0 0.0 - 0.1 x10(3)/[facility] 01/25/2025 10:27 AM EDT [facility] Blood VENOUS BLOOD / Unknown Venipuncture / Unknown 01/25/2025 8:32 AM EDT 01/25/2025 8:32 AM EDT us Praneeth Fay MD HEMATOLOGY ORDERABLES Final Result [facility] [employer], [facility] [address] [facility] , [address] [place] [phone] * (ABNORMAL) PROSTATE SPECIFIC ANTIGEN (TUMOR MARKER) (01/25/2025 8:32 AM EDT) Only the most recent of25 resultswithin the time period is included. Total Psa 6.54(H) <=4.00 ng/mL 01/25/2025 4:31 PM EDT [facility] Blood VENOUS BLOOD / Unknown Venipuncture / Unknown 01/25/2025 8:32 AM EDT 01/25/2025 8:32 AM EDT Narrative [facility] [place], [facility] - 01/25/2025 4:31 PM EDT The [...] Praneeth Fay MD CHEMISTRY ORDERABLES Final Result [facility] [place], [address] , [place] [address] * (ABNORMAL) COMPREHENSIVE METABOLIC PANEL (01/25/2025 8:32 AM EDT) Only the most recent of16 resultswithin the time period is included. Sodium 139 136 - 145 mmol/L 01/25/2025 10:42 AM EDT [facility] [place], [facility] Potassium 4.1 3.5 - 5.0 mmol/L 01/25/2025 10:42 AM EDT [facility] [place], [facility] Chloride 102 98 - 107 mmol/L 01/25/2025 10:42 AM EDT [facility] [place], [facility] Total CO2 28 22 - 29 mmol/L 01/25/2025 10:42 AM EDT [facility] [place], [facility] Anion Gap 9 7 - 16 mmol/L 01/25/2025 10:42 AM EDT [facility] [place], [facility] Calcium 9.0 8.8 - 10.4 mg/dL 01/25/2025 10:42 AM EDT [facility] [place], [facility] Glucose Lvl 193(H) 70 - 99 mg/dL 01/25/2025 10:42 AM EDT [facility] [place], [facility] BUN 20 8 - 23 mg/dL 01/25/2025 10:42 AM EDT [facility] Creatinine 0.68 0.67 - 1.30 mg/dL 01/25/2025 10:42 AM EDT [facility] Albumin 4.0 3.2 - 4.6 gm/dL 01/25/2025 10:42 AM EDT [facility], [facility] Total Protein 6.9 6.4 - 8.3 gm/dL 01/25/2025 10:42 AM EDT [facility] Bili Total 0.4 0.2 - 1.4 mg/dL 01/25/2025 10:42 AM EDT [facility] ALT 20 <=41 U/L 01/25/2025 10:42 AM EDT [facility] AST 15 <=40 U/L 01/25/2025 10:42 AM EDT [facility], [facility] Alk Phos 70 40 - 129 U/L 01/25/2025 10:42 AM EDT [facility], [facility] eGFR (CKD-EPIcr 2020) 98 >=60 mL/min/1.7 3 m2 01/25/2025 10:42 AM EDT [facility], [facility] Comment:Estimated GFR was ca lculated using the CKD-EPIcr (2020) equation refit without race. The equation is recommended by the [employer] - [place] [employer] of Nephrology Task Force. Blood VENOUS BLOOD / Unknown Venipuncture / Unknown 01/25/2025 8:32 AM EDT 01/25/2025 8:32 AM EDT Praneeth Fay MD CHEMISTRY ORDERABLES Final Result [facility], [facility] [address] [facility] , [place] [address] * GENETIC SCANNING (07/27/2024 8:14 AM EST) Blood Historical Provider HEMATOLOGY ORDERABLES Final Result [facility] [address] [facility] [address] [phone] * MISCELLANEOUS GENETIC TEST (07/17/2024 10:27 AM EST) [facility] blood + RNA 07/18/2024 8:27 AM EST [facility] Blood VENOUS STRUCTURE / Unknown Port / Unknown 07/17/2024 10:27 AM EST 07/18/2024 8:27 AM EST us Lillie Montejo MD HEMATOLOGY ORDERABLE S Final Result [facility] [address] [place] [address] * CT ABDOMEN PELVIS W CONTRAST (07/16/2024 [...] WITH CONTRAST, 07/16/2024 8:21 AM CLINICAL HISTORY: U26-Qtcsloxae neoplasm of prostate (HCC)-ICD-10-CM Z85.038-Personal history of other malignant neoplasm of large endwfyybr-KPN-05-CM COMPARISON: 2023 PROCEDURE COMMENTS: Multi-detector volumetric scanning [...] WITH CONTRAST, 07/16/2024 8:21 AM CLINICAL HISTORY: X35-Hxfvutlgb neoplasm of prostate (HCC)-ICD-10-CM Z85.038-Personal history of other malignant neoplasm of large qfexwvufl-MBA-39-CM COMPARISON: 2023 PROCEDURE COMMENTS: Multi-detector volumetric scanning [...] enlarging adenopathy or clear progressive malignancy/metastatic disease. Praneeth Fay MD IMG CT ORDERABLES Final Res ult * CREATININE ISTAT (07/16/2024 8:19 AM EST) Only the most recent of4 resultswithin the time period is included. Creatinine-iST AT 0.7 0.6 - 1.3 mg/dL 07/16/2024 8:22 AM EST [facility] Blood BLOOD SPECIMEN / Unknown 07/16/2024 8:19 AM EST 07/16/2024 8:22 AM EST Praneeth Fay MD POINT OF CARE TEST ORDERABL ES Final Result [facility] [address] [place] [id number] * COLONOSCOPY (03/15/2024 2:16 PM EDT) Anatomical [...] Hartley MD Performing Provider Gela Nuno RN [employer]quette Machine Operator Ban Kee MD Anesthesiologist Medications See Anesthesia [...] PM EDT) CASE REPORT Surgical Pathology Case: [id number] Authorizing Provider: Braden Hartley MD Collected: 03/15/2024 1404 Ordering Location: [facility] Received: 03/15/2024 1604 Pathologist: Tung Tom MD Specimens: A) - Colon, Colon anastomosis biopsy B) - Large Intestine, Left/Descending Colon, Descending colon polyp via cold snare 03/16/2024 3:25 PM EDT [facility] FINAL DIAGNOSIS A. Colon, anastomosis, biopsy: - Fragment of colonic mucosa with no histopathologic change B. Colon, descending, polyp, biopsy: - Tubular adenoma 03/16/2024 3:25 PM EDT [facility] at 1525 EDT GROSS DESCRIPTION A. [...] 03/16/2024 6:40 AM 03/16/2024 3:25 PM EDT [facility] MICROSCOPIC DESCRIPTION Microscopic examination is performed and the findings corroborate the diagnosis. 03/16/2024 3:25 PM EDT [facility] EMBEDDED IMAGES 03/16/2024 3:25 PM EDT [facility] Tissue COLON STRUCTURE / Unknown 03/15/2024 2:04 PM EDT 03/15/2024 4:04 PM EDT Tissue specimen (specimen) DESCENDING COLON STRUCTURE / Unknown 03/15/2024 2:10 PM EDT 03/15/2024 4:04 PM EDT us Braden Hartley MD PATHOLOGY ORDERABLES Final R esult Performing Organization Address City/[facility]/[place] [address] * INTRAOP AIRWAY PLACEMENT (03/15/2024 1:48 PM EDT) Narrative [facility] - 03/15/2024 1:48 PM EDT Ban Kee MD 03/15/2024 2:08 PM Intraop Airway Placement: Date/Time: 03/15/2024 1:48 PM Airway type: Nasal cannula salter us Ban Kee MD [place] ANESTHESIA Edited Resul t - Final Performing Organization Address [facility] de Phone Number [address] [address] * (ABNORMAL) GLUCOSE METER POC (03/15/2024 12:46 PM EDT) Only the most recent of2 resultswithin the time period is included. Glucose Meter POC 124(H) 70 - 100 mg/dL 03/15/2024 1:02 PM EDT [facility] Sample Type Capillary 03/15/2024 1:02 PM EDT [facility] Patient Status Non-Critical Patient 03/15/2024 1:02 PM EDT [facility] Blood BLOOD SPECIMEN / Unknown 03/15/2024 12:46 PM EDT 03/15/2024 1:02 PM EDT us Braden Hartley MD POINT OF CARE TEST ORDERABLE S Final Result Performing Organization Address [facility]/ZIP Co de Phone Number [address] [address] * COLONOSCOPY (09/05/2023 3:28 PM EDT) Anatomical [...] Provider Rickey Lemus MD Anesthesiologist Mimi Ann, mobile engineer Nurse Thong Corona MD Anesthesiologist Jesus Celis CRNA BUSINESS EMPLOYMENT SPECIALIST Harini Michaels RN Briquette Machine Operator Medications See Anesthesia Record. Preprocedure A history [...] Patient Out - Proc. Room 03:28 PM Armen Vinson MD ENDOSCOPY PROCEDURE ORDERAB LES Edited Result - Final * MAGNESIUM LEVEL (12/28/2022 9:01 AM EDT) Only the most recent of3 resultswithin the time period is included. Magnesium 2.0 1.6 - 2.4 mg/dL 12/28/2022 9:23 AM EDT [facility] Blood BLOOD SAMPLE TAKEN FROM CENTRAL LINE / Unknown Port / Unknown 12/28/2022 9:01 AM EDT 12/28/2022 9:03 AM EDT us Praneeth Fay MD CHEMISTRY ORDERABLES Final Result [facility] [address] [place], [place] [id number] * IR ULTRASOUND GUIDED VASCULAR ACCESS (09/07/2022 10:44 AM EDT) Anatomical Region Laterality Modality Interventional R adiology Impressions 09/07/2022 2:02 PM EDT Successful and uncomplicated ultrasound and fluoroscopically guided chest port insertion. Port ready for immediate use. Narrative 09/07/2022 2:02 PM EDT ULTRASOUND AND FLUOROSCOPIC CHEST PORT PLACEMENT: [09/07/2022 10:44 AM] HISTORY: M47-Imjbnnnkn neoplasm of prostate (HCC)-ICD-10-CM C18.0-Malignant neoplasm of [...] CHEST PORT PLACEMENT: [09/07/2022 10:44 AM] HISTORY: V26-Nrvepdbsa neoplasm of prostate (HCC)-ICD-10-CM C18.0-Malignant neoplasm of [...] - 13.1 second(s) 09/06/2022 11:19 AM EDT [facility] INR 0.97 0.86 - 1.12 (ratio) 09/06/2022 11:19 AM EDT [facility] Comment: Level of Therapy Indications Target INR Range Standard Dose Treatment and prophylaxis of venous 2.0 - 3.0 thrombosis, pulmonary embolism High Dose High risk patients with mechanical 2.5 - 3.5 heart valves Blood VENOUS BLOOD / Unknown Venipuncture / Unknown 09/06/2022 9:34 AM EDT 09/06/2022 9:34 AM EDT Yariel Wood MD HEMATOLOGY ORDERABLES Final Resu lt Performing Organization Address City/[facility]/ZIP Co de Phone Number [facility] [address] [place] [address], [place] [address] * PHARMACOGENOMIC PANEL (09/01/2022 8:53 AM EDT) Saliva 09/01/2022 8:53 AM EDT Narrative [facility] - 09/01/2022 8:53 AM EDT You have patient [facility]) to review us Praneeth Fay MD [facility] - ORDERABLES Final R esult Performing Organization Address City/[facility]/ZIP Co de Phone Number [facility] * PATHOLOGY TISSUE ADD-ON ORDER (08/26/2022 4:32 PM EDT) Tissue 08/26/2022 4:32 PM EDT 08/26/2022 4:32 PM EDT us Praneeth Fay MD PATHOLOGY ORDERABLES Final Result [facility] [address] [address] * PET CT PSMA SKULL BASE TO [...] office of the ordering clinician. Reference article: https://jnm.snmjournals.org/content/jnumed///jnumed.121.260167.fu l.pdf Narrative 07/15/2022 2:[address] PSMA SKULL BASE TO MID-THIGH, 07/15/2022 1:39 PM CLINICAL HISTORY: Rising PSA. H57-Bwzcrxwqu neoplasm of prostate (HCC)-ICD-10-CM. COMPARISON: No comparison [...] visualized bony metastatic process. Procedure Note Yassine Lucas DO - 07/15/[address] PSMA SKULL BASE TO MID-THIGH, 07/15/2022 1:39 PM CLINICAL HISTORY: Rising PSA. J38-Dcpkxuvyz neoplasm of prostate (HCC)-ICD-10-CM. COMPARISON: No comparison [...] office of the ordering clinician. Reference article: https://jnm.snmjournals.org/content/jnumed/early//jnumed.121.898759.lamin l.pdf Diana Metcalf MD [facility] PET ORDERABLES Final Resul t * [facility] US CAROTID DUPLEX BILATERAL (03/18/2022 10:58 AM [...] Mode. * A scan in 02/2021 at [facility] was not available for comparison. * previous [facility] documented results in office notes: * right [...] Mode. * A scan in 02/2021 at [facility] was notavailable for comparison. * previous [facility] documented results in officenotes: * right ICA/CCA ratio-2.1. * left ICA/CCA ratio-2.6. * left PSV-125 cm/sec. Kumar Wilhelm MD [facility] VASCULAR ORDERABLES Final Result * [facility] COLONOSCOPY (11/30/2016 7:00 AM EDT) 11/30/2016 7:00 AM EDT Impressions [facility] - 11/30/2016 7:19 AM EDT The examination was negative from a standpoint of screening. . Diverticulosis of the ascending colon, descending colon and sigmoid colon. Internal hemorrhoids. Plan: Colonoscopy in 5 years due to previous history of polyps. This section is an excerpt of the full report. us Michelle Roper MD GI PROCEDURE ORDERABLES Final R esult [facility] [address] [place] [address] * CT SIMULATION FOR TREATMENT PLANNING (04/16/2015 9:55 AM EST) Anatomical Region Laterality Modality Computed Tomogra phy 04/16/2015 9:55 AM EST Impressions 04/16/2015 12:20 PM EST Impression: Study done for radiation therapy planning. Narrative 04/16/2015 12:[address] SIMULATION FOR TREATMENT PLANNING 04/16/2015 9:55 AM HISTORY: Z80-Xrfxrftzb neoplasm of idczhyyo-SHL-32-CM Findings: Study done for radiation therapy planning. There is contrast in the urinary bladder. Small bilateral inguinal and iliac lymph nodes are of questionable clinical significance. Prostate is not grossly enlarged. No sclerotic bony metastases. Procedure Note Yariel Wood MD - 04/16/2015 CT SIMULATION FOR TREATMENT PLANNING 04/16/2015 9:55 AM HISTORY: W05-Gaypvbxyq neoplasm of eupihtml-DLX-44-CM Findings: Study done for radiation therapy planning. There is contrast inthe urinary bladder. Small bilateral inguinal and iliac lymph nodes are of questionable clinical significance. Prostate is not grossly enlarged. No sclerotic bony metastases. Impression: Study done for radiation therapy planning. us Diana Metcalf MD IMG CT ORDERABLES Final Result * SCANNED RADIOLOGY REPORT (12/22/2011 12:27 PM EDT) Anatomical Region Laterality Modality Other Narrative Transcriptions Unknown, Unknown - 12/22/2011 12:27 PM EDT us Unknown Unknown [facility]G DIAGNOSTIC IMAGING ORDERABLE S Final Result * [...] size and function. No wall motion abnormalities. 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 metabolizer (HCC) 08/31/2022 Prostate cancer (HCC) [...] chemotherapy Personal history of antineoplastic chemotherapy 10/23/2024 Prostate cancer (HCC) Malignant neoplasm of prostate 01/25/2025 Prostate cancer (HCC) Malignant neoplasm of prostate 01/28/2025 History of colon cancer Personal history of malignant neoplasm of large intestine 01/29/2025 Prostate cancer (HCC) Malignant neoplasm of prostate 01/29/2025 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/29/2025 History of colon cancer Personal history of malignant neoplasm of large intestine 01/29/2025 Prostate cancer (HCC) Malignant neoplasm of prostate 01/29/2025 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/29/2025 History of colon cancer Personal history of malignant neoplasm of large intestine 01/29/2025 History of chemotherapy Personal history of antineoplastic chemotherapy 01/29/2025 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
--- OUTSIDE RECORDS SUMMARY | 2025-02-26 23:09 | XMS_ITS | Encounter Summary ---
Author Organization Healthcare Address [address] [place] [address] Care Team Providers Care Sap Developer Name Role Phone Unavailable Primary Care Provider Unavailabl e Encounter Details Date Type Department Care Team (Late st Contact Info) Description 10/15/2015 Orders Only External Location [address] [place] [address] Provider, External Social History Tobacco Use Types [...]
--- OUTSIDE RECORDS SUMMARY | 2025-02-26 23:10 | XMS_ITS | Clinical Summary ---
Author Organization [facility] Address [address] [place] [address] Care Team Providers Care Mill Roll Rewinder Name Role Phone Ismael Collins MD Primary Care Provider [phone] Allergies No known active allergies Medications rosuvastatin (CRESTOR) 5 MG tablet Take 1 tablet by mouth Every Night. Active coenzyme Q10 50 MG capsule capsule Take 2 capsules by mouth Daily. OTC Active aspirin 81 MG EC tablet Take 1 tablet by mouth Daily. OTC Active losartan-hydroc hlorothiazide (HYZAAR) 100-12.5 MG per tablet Take 1 tablet by mouth Daily. Active metFORMIN ER (GLUCOPHAGE-XR) 500 MG 24 hr tablet Take 1 tablet by mouth Daily With Breakfast. Active metoprolol succinate XL (TOPROL-XL) 25 MG 24 hr tablet Take 1 tablet by mouth Daily. Active acetaminophen (TYLENOL) 325 MG tablet Take 2 tablets by mouth Every 6 (Six) Hours As Needed for Mild Pain, Fever or Headache. OTC Active oxyCODONE (ROXICODONE) 5 MG immediate release tabletIndicatio ns:Cecum cancer Take 1 tablet by mouth Every 6 (Six) Hours As Needed for Moderate Pain. 12 tablet 08/07/2022 Active ondansetron (Zofran) 4 MG tablet Take 1 tablet by mouth Every 8 (Eight) Hours As Needed for Nausea or Vomiting. 15 tablet 08/07/2022 Active Active Problems Problem Noted Date Diagnosed Date Colonic mass 08/02/2022 Bowel obstruction 08/02/2022 DM2 (diabetes mellitus, type 2) 08/02/2022 HTN (hypertension) 08/02/2022 HLD (hyperlipidemia) 08/02/2022 History of prostate cancer 08/02/2022 Social History Tobacco Use Types Packs/Day Years Used Date Smoking Tobacco: Never Smokeless Tobacco: Never Tobacco Cessation:Counseling Given: Not Answered Alcohol Use Standard Drinks/Week Comments Yes 0 (1 standard drink = 0.6 oz pur e alcohol) OCCASIONALLY AUDIT-C Answer Date Recorded Q1: How often do you have a drink containing alc ohol? Monthly or less 08/02/2022 Q2: How many drinks containi ng alcohol do you have on a typical day when you are drinking? 1 or 2 08/02/2022 Q3: How often do you have si x or more drinks on one occasion? Never 08/02/2022 Abuse Screen Answer Date Recorded Unsafe at Home or Work/School Not on file Feels Threatened by Someone? Not on file Does Anyone Keep You from Co ntacting Others or Doint Things Outside the Home? Not on file 08/07/2023 Physical Sign of Abuse Present Not on file 0 08/07/2023 Housing Stability Answer Date Recorded Current Living Arrangements Not on file 07/21 Potentially Unsafe Housing Conditions Not on karla e 08/07/2023 Family and Community Support Answer Kashif e Recorded Help with Day-to-Day Activities Not on file 03/02/2023 Lonely or Isolated Not on file 03/02/2023 Employment Answer Date Recorded Do you want help finding or keeping work or a yesenia b? Not on file 03/02/2023 Disabilities Answer Date Recorded Concentrating, Remembering, or Making Decisions Difficulty Not on file 08/07/2023 Doing Errands Independently Difficulty Not on fi le 08/07/2023 Education Answer Date Recorded Help with school or training? Not on file Preferred Language Not on file 03/02/2023 Sex and Gender Information Value Date Recorded Sex Assigned at Not on file Legal Sex Male 3:13 PM EDT Gender Identity Not on file Sexual Orientation Not on file Last Filed Vital Signs Vital Sign Reading Time Taken Comments Blood Pressure 162/80 08/07/2022 12:41 PM EDT Pulse 90 08/07/2022 12:41 PM EDT Temperature 36.9 C (98.4 F) 08/07/2022 12:41 PM EDT Respiratory Rate 16 08/07/2022 12:41 PM EDT Oxygen Saturation 96% 08/07/2022 12:41 PM EDT Inhaled Oxygen Concentration - - Weight 80.3 kg (177 lb) 08/02/2022 4:11 PM EDT Height 172.7 cm (5' 8 ) 08/02/2022 4:14 PM EDT Body Mass Index 26.91 08/02/2022 4:11 PM EDT Plan of Treatment Health Maintenance Due Date Last Done Comments LIPID PANEL 1950 DIABETIC EYE EXAM 1960 DIABETIC FOOT EXAM 1960 URINE MICROALBUMIN-CREATININ E RATIO (uACR) 1960 TDAP/TD VACCINES (1 - Tdap) 1969 ZOSTER VACCINE (1 of 2) 2000 Pneumococcal Vaccine 50+ (2 of 2 - PCV) 02/21/2016 02/20/2015 ANNUAL WELLNESS VISIT 08/02/2022 HEPATITIS C SCREENING 08/02/2022 HEMOGLOBIN A1C 01/03/2023 07/06/2022, 07/06/2022 INFLUENZA VACCINE 12/21/2024 03/22/2022, , 02/20/2020 COVID-19 Vaccine ( - 2023-2 5 season) 2025 COLONOSCOPY Discontinued 07/07/2022 COLORECTAL CANCER SCREENING Discontinued AAA SCREEN ONCE Completed 08/02/2022, 12/2022, 07/28/2022 COLOGUARD Discontinued COLON CANCER SCREENING 5 YEA R [address]MO[address]COPY Discontinued [address] COLONOGRAPHY Discontinued FECAL OCCULT BLOOD TEST Discontinued FIT Testing (1 year) Discontinued Medical Devices Implanted Type Area Glass Cleaner Device Identifier Shelf Expiration Date Model / Serial / Lot Reload Stplr Lnr Cut Prox Thk 75 Grn - [id number] Implanted:Qty : 1 on 08/04/2022 by Jimmy Encarnacion MD at [facility] Implant Right: Abdomen [employer] 06/22/2025 [id number] / / [id number] Stplr Lnr Cut Prox Thk 75mm Grn Tct75 - [id number] Implanted:Qty : 1 on 08/04/2022 by Jimmy Encarnacion MD at [facility] Implant Right: Abdomen [employer] 11/19/2026 [id number] / / [id number] Procedures Procedure Name Priority Date/Time Associated Diagnosis Comments CT ABDOMEN PELVIS W CONTRAST STAT 08/02/2022 12:42 PM EDT from Last 3 Months or Most Recently Relevant to Health Maintenance Results * CT Abdomen Pelvis With Contrast (08/02/2022 12:42 PM EDT) Anatomical Region Laterality Modality Abdomen, Pelvis N/A Computed Tomogra phy 08/02/2022 12:5 1 PM EDT Impressions 08/02/2022 1:08 PM EDT 1. No evidence of thoracic metastatic disease 2. Nodular thickening of the ileocecal valve resulting in mild small bowel obstruction. Enlarged right lower quadrant mesenteric lymph node and small lymph nodes adjacent to the ileocecal valve concerning for metastatic adenopathy 3. Mildly enlarged right external iliac chain lymph node 4. Small amount of ascites in the upper abdomen and pelvis 5. Unrelated findings: Calcific coronary atherosclerosis, colonic diverticulosis Electronically Signed: Yassine Springer 08/02/2022 1:08 PM EDT Workstation ID: [id number] Narrative 08/02/2022 1:[address] CHEST WO CONTRAST DIAGNOSTIC, CT ABDOMEN PELVIS W CONTRAST Date of Exam: 08/02/2022 12:25 PM EDT Indication: Per provider. Comparison: None available. Technique: Axial CT images were obtained of the chest without contrast administration. Axial CT images of the abdomen and pelvis were obtained following administration of 85 cc Isovue-300. Reconstructed coronal and sagittal images were also obtained. Automated exposure control and iterative construction methods were used. Findings: Chest: Shannon/mediastinum: No adenopathy. Thoracic aorta normal in caliber. Coronary artery calcification. No pericardial effusion Lungs/pleura: No acute pulmonary abnormality. Calcified granuloma in the left lower lobe. No noncalcified pulmonary nodule. No pleural effusion Bones/soft tissues: No suspicious bone lesion Abdomen/Pelvis: Organs: Liver, spleen, pancreas, kidneys, adrenal glands, gallbladder unremarkable Gastrointestinal: Nodular thickening of the ileocecal valve. Mild small bowel dilatation mostly of the ileum. Normal appendix. Colonic diverticula. Enlarged right lower quadrant mesenteric lymph node, 1.7 cm. A couple of small lymph node adjacent to the ileocecal valve. Pelvis: 1.2 cm right external iliac chain lymph node, with a few smaller more proximal external iliac nodes. Small amount of free fluid in the pelvis. Prostate gland surgically absent. Urinary bladder unremarkable Peritoneum/Retroperitoneum: No retroperitoneal adenopathy. Small amount of perihepatic and perisplenic ascites. No pneumoperitoneum. Normal caliber aorta Bones/Soft Tissues: No suspicious bone lesion Procedure Note Yassine Springer MD - 08/02/2022 CT CHEST WO CONTRAST DIAGNOSTIC, CT ABDOMEN PELVIS W CONTRAST Date of Exam: 08/02/2022 12:25 PM EDT Indication: Per provider. Comparison: None available. Technique: Axial CT images were obtained of the chest without contrastadministration. Axial CT images of the abdomen and pelvis were obtainedfollowing administration of 85 cc Isovue-300. Reconstructed coronal andsagittal images were also obtained. Automated exposure control and iterative construction methods were used. Findings: Chest: Shannon/mediastinum: No adenopathy. Thoracic aorta normal in caliber.Coronary artery calcification. No pericardial effusion Lungs/pleura: No acute pulmonary abnormality. Calcified granuloma in theleft lower lobe. No noncalcified pulmonary nodule. No pleural effusion Bones/soft tissues: No suspicious bone lesion Abdomen/Pelvis: Organs: Liver, spleen, pancreas, kidneys, adrenal glands, gallbladderunremarkable Gastrointestinal: Nodular thickening of the ileocecal valve. Mild smallbowel dilatation mostly of the ileum. Normal appendix. Colonicdiverticula. Enlarged right lower quadrant mesenteric lymph node, 1.7 cm.A couple of small lymph node adjacent to the ileocecal valve. Pelvis: 1.2 cm right external iliac chain lymph node, with a few smallermore proximal external iliac nodes. Small amount of free fluid in thepelvis. Prostate gland surgically absent. Urinary bladder unremarkable Peritoneum/Retroperitoneum: No retroperitoneal adenopathy. Small amount ofperihepatic and perisplenic ascites. No pneumoperitoneum. Normal caliberaorta Bones/Soft Tissues: No suspicious bone lesion IMPRESSION: 1. No evidence of thoracic metastatic disease 2. Nodular thickening of the ileocecal valve resulting in mild small bowelobstruction. Enlarged right lower quadrant mesenteric lymph node and smalllymph nodes adjacent to the ileocecal valve concerning for metastaticadenopathy 3. Mildly enlarged right external iliac chain lymph node 4. Small amount of ascites in the upper abdomen and pelvis 5. Unrelated findings: Calcific coronary atherosclerosis, colonicdiverticulosis Electronically Signed: Yassine Springer 08/02/2022 1:08 PM EDT Workstation ID: [id number] us Valentinocarrie Mendoza DO IMG CT ORDERABLES Final Result from Last 3 Months or Most Recently Relevant to Health Maintenance Insurance Advance Directives * CPR (Attempt to Resuscitate) (Latest Code Status on File) Date Activated Date Inactivated Comments 08/04/2022 6:32 PM 08/07/2022 3:43 PM Question Answer Comments Code Status (Patient has no pulse and is not breathing): CPR (Attempt to Resuscitate) Medical Interventions (Patie nt has pulse or is breathing): Full * CPR (Attempt to Resuscitate) Date Activated Date Inactivated Comments 08/02/2022 1:45 PM 08/04/2022 6:32 PM Question Answer Comments Code Status (Patient has no pulse and is not breathing): CPR (Attempt to Resuscitate) Medical Interventions (Patie nt has pulse or is breathing): Full Support Care Teams Mill Roll Rewinder Relationship Specialty Start Date End Date Ismael Collins MD [address] [place] [address] PCP - General Family Medicine 08/02/22
--- OUTSIDE RECORDS SUMMARY | 2025-02-26 23:10 | XMS_ITS | Encounter Summary ---
Author Organization [place] [address] Care Team Providers Care Compensation Intern Name Role Phone Jim Collins MD Primary Care Provider [phone] Diana Metcalf MD Unavailable [phone] Dania Zuniga RN Unavailable [phone] Praneeth Fay MD Unavailable [phone] Encounter Details Date Type Department Care Team (Late st Contact Info) Description 11/30/2016 Orders Only SEP Gastro [facility] [address] [facility] [address] [place] [address] Michelle Roper MD Social History Tobacco Use [...] AM EST Appointment [place] [address] 04/30/2025 10:40 AM EST Appointment [facility] [place] [address] Praneeth Fay MD [address] [place] [address] [id number] documented as of this encounter Procedures Procedure Name Priority Date/Time Associated Diagnosis Comments [facility] COLONOSCOPY Routine 11/30/2016 7:00 AM EDT documented in this encounter Results * [facility] COLONOSCOPY (11/30/2016 7:00 AM EDT) 11/30/2016 7:00 AM EDT Impressions [facility] - 11/30/2016 7:19 AM EDT The examination was negative from a standpoint of screening. . Diverticulosis of the ascending colon, descending colon and sigmoid colon. Internal hemorrhoids. Plan: Colonoscopy in 5 years due to previous history of polyps. This section is an excerpt of the full report. us Michelle Roper MD GI PROCEDURE ORDERABLES Final R esult [facility] [address] [id number] documented in this encounter Visit Diagnoses Not on filedocumented in this encounter Care Teams Compensation Intern Relationship Specialty Start Date End Date Jim Collins MD [address] [facility] [address] [place] [address] PCP - General Psychiatry & Neurology-Neurology 12/21/11 Diana Metcalf MD [address] [facility] [address] [place], [place] [id number] Consulting Physician Radiology-Radiation Oncology 04/02/15 Dania Zuniga, RN Oncology Nurse Navigator 08/24/22 02/15/23 Praneeth Fay MD [address] [facility] [place], [place] [id number] Medical Oncologist Internal Medicine-Hematology and Oncology 09/14/22 documented as of this encounter
== END 2025-02-26 23:59 | disposition home or self-care (01) ==
LOC: LAB.DROPOF 23:02
PROVIDERS: PCP Family Medicine; Visit Provider Family Medicine
DX: I10 Essential (primary) hypertension (principal); Z11.59 Encounter for screening for other viral diseases
CPT/HCPCS: 80048; 86803; 87389